=== PATIENT | male | born 1945 | race Caucasian/White ===

== ENCOUNTER 2016-05-26 07:41 | Inpatient (IN) | payer BC, OTHER ==
[~2016-05-26] VITALS: Ht 177.8 cm; Wt 82.1 kg
[2016-05-26] MEDS ORDERED: VANCOMYCIN 1GM/270ML NSS IV STA (07:50)
[2016-05-26] MEDS ORDERED: PIPERACILLIN/TAZOBACTAM 4.5 GM/100ML D5W IV STA (07:50)
[2016-05-26] MEDS ORDERED: LEVAQUIN 750MG / 150ML D5W IV STA (07:50)
[2016-05-26] MEDS ORDERED: SODIUM CHLORIDE 0.9% 1000ML 1,000 ML IV ONE (07:50)
--- NOTE | 2016-05-26 07:59 | EMERGENCY ROOM VISIT NOTE ---
History Report prepared by Alfred: Kandy Lowe Under the Supervision of: Dr. Roland Waters M.D. First contact with patient: 07:45 Chief Complaint: CHEST PAIN Stated Complaint: CHEST PAIN History of Present Illness The patient is a 71 year old male who presents to the Emergency Room with complaints of constant sternal chest pain that began early this morning. Taking deep breaths makes the pain worse. It is an 8/10 in severity. It does not radiate. He has never had similar pain before. Last night, the patient had a fever and chills. He took Motrin, but became nauseated and vomited afterwards. The patient was recently treated with Doxycycline for Lyme. He has a history of asthma and uses an inhaler at home. He does not have a history of COPD. His most recent stress test was years ago, but was normal. He has never smoked. Source of History: patient Onset: early this morning Position: chest (sternal) Symptom Intensity: 8/10 Timing: constant Modifying Factors (Worsening): breathing Associated Symptoms: + chills, + fevers, + vomiting Review of Systems See HPI for pertinent positives & negatives. A total of 10 systems reviewed and were otherwise negative. Past Medical & Surgical Medical Problems: (1) Asthma (2) Pneumonia (3) Severe sepsis Family History No pertinent family history stated. Social History Smoking Status: Never Smoker Alcohol Use: occasionally Drug Use: none Marital Status: Housing Status: lives with family Occupation Status: employed Current/Historical Medications Scheduled Fluticasone-Salmeterol 115/21 Mcg (Advair Hfa 115/21 Mcg), 1 PUFF INH BID Allergies Coded Allergies: Fluticasone (Unverified Allergy, Severe, flu-like symptoms, 05/26/16) Physical Exam Vital Signs Date Time Temp Pulse Resp B/P Pulse Ox O2 Delivery O2 Flow Rate FiO2 05/26/16 09:23 37.6 110 22 111/65 94 Nasal Cannula 2.0 05/26/16 08:44 115 28 129/95 95 Nasal Cannula 2.0 05/26/16 08:30 102/62 05/26/16 07:57 115 30 95/67 92 05/26/16 07:57 92 Nasal Cannula 2.0 05/26/16 07:56 89 Room Air 05/26/16 07:55 116 05/26/16 07:45 95 Room Air 05/26/16 07:45 38.8 120 27 104/65 95 Room Air Physical Exam GENERAL: Patient is a healthy-appearing well-nourished 71 year old male HEAD: Normocephalic atraumatic EYES: Ocular movements intact pupils equal and react to light OROPHARYNX mucous membranes are moist no exudates present no erythema or edema present NECK: Supple no nuchal rigidity CHEST: Good equal expansion LUNGS: Cannot take deep breaths, wheezes present bilaterally. CARDIAC: Normal S1 and S2 ABDOMEN: Soft nontender no guarding BACK: No CVA tenderness EXTREMITIES: No pain upon palpation normal muscle strength in all groups no clubbing cyanosis or edema NEURO: Patient is following commands is answering questions appropriately. Alert and oriented x3 Cranial Nerves 2-12 grossly intact Medical Decision & Procedures ER Provider Diagnostic Interpretation: Radiology results as stated below per my review and radiologist interpretation: CHEST ONE VIEW PORTABLE CLINICAL HISTORY: Sepsis COMPARISON STUDY: 10/23/2015 FINDINGS: The cardiac and mediastinal contours remain stable. There are developing bibasal airspace opacities. There is no overt failure. There is no significant focal fluid.[ IMPRESSION: Developing bibasal airspace opacities, inflammatory versus atelectatic. Electronically signed by: Darryl Yee M.D. 05/26/2016 8:21 AM Dictated Date/Time: 05/26/2016 8:[address] ANGIOGRAM OF THE CHEST CLINICAL HISTORY: Chest pain, shortness of breath, hypoxia. COMPARISON STUDY: Noncontrast chest CT dated 11/19/2015 TECHNIQUE: Following the IV administration of 92 mL of Optiray-320, CT angiogram of the thorax was performed from the thoracic inlet to the lung bases utilizing the pulmonary embolus protocol. Images are reviewed in the axial, sagittal, and coronal planes. IV contrast was administered without complication. MIP imaging was performed. CT DOSE: 294.27 mGy.cm FINDINGS: No pathologically enlarged axillary mediastinal or hilar lymph nodes were visualized. There was no evidence of thoracic aortic dilatation. There were no pulmonary artery filling defects to indicate acute pulmonary embolism. There is a small loculated left pleural effusion. There is lower lobe rhonchi wall thickening most pronounced on the left. There is left lower lobe mucus plugging. There are left lower lobe airspace opacities, likely inflammatory. There is scattered hepatic hypodensities, similar to the prior study. IMPRESSION: 1. No CT evidence of acute pulmonary embolism 2. Lower lobe bronchial wall thickening with narrowing of the left lower lobe bronchus and areas of mucous plugging. There are left basal airspace opacities, likely inflammatory. Imaging subsequent to treatment is recommended in follow-up. Electronically signed by: Darryl Yee M.D. 05/26/2016 8:48 AM Dictated Date/Time: 05/26/2016 8:43 AM Laboratory Results 05/26/16 08:04 Red Blood Count 4.46, Mean Corpuscular Volume 92.8, Mean Corpuscular Hemoglobin 32.1, Mean Corpuscular Hemoglobin Concent 34.5, Mean Platelet Volume 10.7 05/26/16 08:04 Test 05/26/16 08:04 05/26/16 08:17 05/26/16 09:01 White Blood Count 20.64 K/uL (4.8-10.8) Red Blood Count 4.46 M/uL (4.7-6.1) Hemoglobin 14.3 g/dL (14.0-18.0) Hematocrit 41.4 % (42-52) Mean Corpuscular Volume 92.8 fL (80-100) Mean Corpuscular Hemoglobin 32.1 pg (25-34) Mean Corpuscular Hemoglobin Concent 34.5 g/dl (32-36) Platelet Count 215 K/uL (130-400) Mean Platelet Volume 10.7 fL (7.4-10.4) RDW Standard Deviation 46.5 fL (36.4-46.3) RDW Coefficient of Variation 13.6 % (11.5-14.5) Neutrophils % (Manual) 86.9 % Lymphocytes % (Manual) 9.6 % Monocytes % (Manual) 2.6 % Metamyelocytes % 0.9 % Neutrophils # (Manual) 17.94 K/uL (1.4-6.5) Total Absolute Neutrophils 17.94 K/uL (1.4-6.5) Lymphocytes # (Manual) 1.98 K/uL (1.2-3.4) Total Absolute Lymphocytes 1.98 K/uL (1.2-3.4) Monocytes # (Manual) 0.54 K/uL (0.11-0.59) Metamyelocytes # 0.19 K/uL (0-0) Hyposegmented Neutrophils 1+ Large Platelets 1+ Prothrombin Time 11.9 SECONDS (9.0-12.0) Prothromb Time International Ratio 1.1 (0.9-1.1) Activated Partial Thromboplast Time 24.9 SECONDS (21.0-31.0) Partial Thromboplastin Ratio 1.0 Anion Gap 11.0 mmol/L (3-11) Est Creatinine Clear Calc Drug Dose 55.4 ml/min Estimated GFR () 64.5 Estimated GFR (Non- 55.7 BUN/Creatinine Ratio 18.4 (10-20) Calcium Level 8.9 mg/dl (8.5-10.1) Total Bilirubin 1.3 mg/dl (0.2-1) Aspartate Amino Transf (AST/SGOT) 21 U/L (15-37) Alanine Aminotransferase (ALT/SGPT) 21 U/L (12-78) Alkaline Phosphatase 34 U/L (45-117) Total Creatine Kinase 99 U/L (39-308) Creatine Kinase MB < 0.5 ng/ml (0.5-3.6) Creatine Kinase MB Ratio (0-3.0) Troponin I < 0.015 ng/ml (0-0.045) Total Protein 6.5 gm/dl (6.4-8.2) Albumin 3.2 gm/dl (3.4-5.0) Globulin 3.3 gm/dl (2.5-4.0) Albumin/Globulin Ratio 1.0 (0.9-2) Chemistry Specimen Hemolysis Hepatitis C Antibody Screen NEG (NEG) Bedside Lactic Acid Venous 2.81 mmol/L (0.90-1.70) Influenza Type A Antigen Neg for Influ A (NEG) Influenza Type B Antigen Neg for Influ B (NEG) Labs reviewed by ED physician. Medications Administered Medications (Trade) Dose Ordered Sig/Chante Route Start Time Stop Time Status Last Admin Dose Admin Sodium Chloride (Nss 1000ml) 1,000 ml @ 999 mls/hr Q1H1M ONCE IV 05/26/16 07:50 05/26/16 08:50 DC 05/26/16 08:24 999 MLS/HR Piperacillin Sod/ Tazobactam Sod (Zosyn Iv) 4.5 gm ONE STAT IV 05/26/16 07:50 05/26/16 07:53 DC 05/26/16 08:28 4.5 GM Vancomycin HCl (Vancomycin 1gm/ 270ml Nss) 1 gm ONE STAT IV 05/26/16 07:50 05/26/16 07:53 DC 05/26/16 09:11 1 GM Levofloxacin (Levaquin / D5W) 750 mg ONE STAT IV 05/26/16 07:50 05/26/16 07:53 DC 05/26/16 08:27 750 MG Acetaminophen (Tylenol Tab) 650 mg ONE ONCE PO 05/26/16 08:00 05/26/16 08:01 DC 05/26/16 08:29 650 MG Morphine Sulfate (MoRPHine SULFATE INJ) 8 mg NOW STAT IV 05/26/16 08:21 05/26/16 08:23 DC 05/26/16 08:47 8 MG Ondansetron HCl 4 mg 4 mg NOW STAT IV 05/26/16 08:21 05/26/16 08:23 DC 05/26/16 08:46 4 MG Sodium Chloride 1,000 ml @ 999 mls/hr Q1H1M STAT IV 05/26/16 08:21 05/26/16 09:21 DC 05/26/16 08:24 999 MLS/HR Sodium Chloride (Nss 500ml) 500 ml @ 999 mls/hr Q31M STAT IV 05/26/16 08:51 05/26/16 09:21 DC 05/26/16 09:12 999 MLS/HR Methylprednisolone Sodium Succinate (Solu-Medrol IV) 60 mg NOW STAT IV 05/26/16 08:51 05/26/16 08:53 DC 05/26/16 09:12 60 MG Magnesium Sulfate (Magnesium Sulfate) 1 gm NOW STAT IV 05/26/16 08:54 05/26/16 08:55 DC 05/26/16 10:26 1 GM Hydromorphone HCl (Dilaudid Inj) 1 mg NOW STAT IV 05/26/16 09:02 05/26/16 09:04 DC 05/26/16 09:13 1 MG Metoclopramide HCl (Reglan Inj) 10 mg NOW STAT IV 05/26/16 09:02 05/26/16 09:04 DC 05/26/16 09:12 10 MG ECG Indication: chest pain Rate (beats per minute): 118 Rhythm: sinus tachycardia Findings: PVC (occasional), no acute ischemic change ED Course 0746: The patient was evaluated in room A3. A complete history and physical examination was performed. 0750: Ordered Levofloxacin 750 mg IV, Vancomycin HCl 1 gm IV, Zosyn 4.5 gm IV, NSS 1000 ml @ 999 mls/hr IV, Tylenol Tab 650 mg PO. 0800: Ordered Acetaminophen 650 mg PO. 0821: Ordered NSS 1000 ml @ 999 mls/hr IV, Zofran Inj 4 mg IV, Morphine Sulfate 8 mg IV. 0851: Ordered Solu-Medrol 60 mg IV, NSS 500 ml @ 999 mls/hr IV, Magnesium Sulfate 1 gm IV. 0902: Ordered Reglan Inj 10 mg IV, Dilaudid Inj 1 mg IV. 0932: Upon reexamination the patient is feeling better. I discussed results and treatment plan with the patient. He verbalizes agreement and understanding. I spoke with Dr. Ortega from the [facility] Hospitalist Service. The patient will be evaluated for further management. Medical Decision Differential diagnosis: Etiologies such as cardiac ischemia, aortic dissection, pulmonary embolism, pneumonia, pneumothorax, musculoskeletal, infections, pericarditis, myocarditis , esophageal rupture, gastrointestinal, as well as others were entertained. This is a 71-year-old male who presents emergency department hypotensive tachycardic and febrile. The patient's chest x-ray was unconvincing of a acute process therefore he was sent for CAT scan of the chest. This did not show any evidence of blood clot. The patient has normal CK-MB and troponin. He has a large elevation in his white blood count at 25. The patient was pancultured up his found to have an elevation in his lactic acid. He was given 30 mL per kilogram of normal saline. He was started on antibiotics. I did discuss the case with the hospitalist service who agreed to admit the patient. Patient was in agreement with the treatment plan Consults Time Called: [phone] Consulting Physician: Dr. Ortega - [facility] Hospitalist Returned Call: [phone] I discussed the case with him. The patient will be evaluated for further management. Impression Primary Impression: Sepsis Additional Impression: Pneumonia Critical Care I have personally spent greater than 90 minutes of critical care time in the direct management of this patient. This includes bedside care, interpretation of diagnostic studies, and testing, discussion with consultants, patient, and family members, and other required patient management activities. This 90 minutes is in excess of all separately billable procedures. Scribe Attestation The scribe's documentation has been prepared under my direction and personally reviewed by me in its entirety. I confirm that the note above accurately reflects all work, treatment, procedures, and medical decision making performed by me. Departure Information Dispostion Being Evaluated By Hospitalist Referrals Sarbjit Coffman D.O. (PCP) Patient Instructions [facility] Problem Qualifiers Primary Impression: Sepsis Sepsis type: sepsis due to unspecified organism Qualified Codes: A41.9 - Sepsis, unspecified organism Additional Impression: Pneumonia Pneumonia type: due to unspecified organism Laterality: unspecified laterality Lung location: unspecified part of lung Qualified Codes: J18.9 - Pneumonia, unspecified organism
[2016-05-26] MEDS ORDERED: ACETAMINOPHEN 325 MG TAB PO ONE (08:00)
[2016-05-26] MEDS ORDERED: SODIUM CHLORIDE 0.9% 1000ML 1,000 ML IV STA (08:21)
[2016-05-26] MEDS ORDERED: ONDANSETRON INJ 2 MG/ML 2 ML VIAL IV STA (08:21)
[2016-05-26] MEDS ORDERED: MoRPHine SULFATE 10 MG/ML CARP/VIAL IV STA (08:21)
--- NOTE | 2016-05-26 08:23 | DIAGNOSTIC IMAGING REPORT ---
CHEST ONE VIEW PORTABLE CLINICAL HISTORY: Sepsis COMPARISON STUDY: 10/23/2015 FINDINGS: The cardiac and mediastinal contours remain stable. There are developing bibasal airspace opacities. There is no overt failure. There is no significant focal fluid.[ IMPRESSION: Developing bibasal airspace opacities, inflammatory versus atelectatic. Electronically signed by: Darryl Yee M.D. 05/26/2016 8:21 AM Dictated Date/Time: 05/26/2016 8:14 AM
[2016-05-26] MEDS ORDERED: OPTIRAY 320 IV PRN (08:30)
[2016-05-26 08:32] LABS: HEMATOCRIT 41.4 % (42-52); MEAN CELL VOLUME 92.8 fL (80-100); MEAN CORPUSCULAR HEMOGLOBIN 32.1 pg (25-34); MEAN CORPUSCULAR HGB CONC 34.5 g/dl (32-36); MEAN PLATELET VOLUME 10.7 fL (7.4-10.4); PLATELET COUNT 215 K/uL (130-400); RED BLOOD COUNT 4.46 M/uL (4.7-6.1); WHITE BLOOD COUNT 20.64 K/uL (4.8-10.8)
[2016-05-26 08:40] LABS: INR 1.1 (0.9-1.1); PROTHROMBIN TIME (PATIENT) 11.9 SECONDS (9.0-12.0)
--- NOTE | 2016-05-26 08:50 | DIAGNOSTIC IMAGING REPORT ---
CT ANGIOGRAM OF THE CHEST CLINICAL HISTORY: Chest pain, shortness of breath, hypoxia. COMPARISON STUDY: Noncontrast chest CT dated 11/19/2015 TECHNIQUE: Following the IV administration of 92 mL of Optiray-320, CT angiogram of the thorax was performed from the thoracic inlet to the lung bases utilizing the pulmonary embolus protocol. Images are reviewed in the axial, sagittal, and coronal planes. IV contrast was administered without complication. MIP imaging was performed. CT DOSE: 294.27 mGy.cm FINDINGS: No pathologically enlarged axillary mediastinal or hilar lymph nodes were visualized. There was no evidence of thoracic aortic dilatation. There were no pulmonary artery filling defects to indicate acute pulmonary embolism. There is a small loculated left pleural effusion. There is lower lobe rhonchi wall thickening most pronounced on the left. There is left lower lobe mucus plugging. There are left lower lobe airspace opacities, likely inflammatory. There is scattered hepatic hypodensities, similar to the prior study. IMPRESSION: 1. No CT evidence of acute pulmonary embolism 2. Lower lobe bronchial wall thickening with narrowing of the left lower lobe bronchus and areas of mucous plugging. There are left basal airspace opacities, likely inflammatory. Imaging subsequent to treatment is recommended in follow-up. Electronically signed by: Darryl Yee M.D. 05/26/2016 8:48 AM Dictated Date/Time: 05/26/2016 8:43 AM
[2016-05-26] MEDS ORDERED: METHYLPREDNISOLONE 125 MG VIAL IV STA (08:51)
[2016-05-26] MEDS ORDERED: SODIUM CHLORIDE 0.9% 500ML 500 ML IV STA (08:51)
[2016-05-26] MEDS ORDERED: MAGNESIUM SULFATE 1GM / D5W 1 GM BAG IV STA (08:54)
[2016-05-26] MEDS ORDERED: METOCLOPRAMIDE HCL INJ 5 MG/ML 2 ML VIAL IV STA (09:02)
[2016-05-26] MEDS ORDERED: HYDROmorphone INJ 1 MG/ML SYR IV STA (09:02)
[2016-05-26 09:10] LABS: COMPLETE YES; HYPOSEGMENTED POLYS 1+; LARGE PLATELETS 1+; LYMPH ABS # 1.98 K/uL (1.2-3.4); LYMPHOCYTE % 9.6 %; META ABS # 0.19 K/uL (0-0); METAMYELOCYTE % 0.9 %; NEUTROPHILS % 86.9 %
[2016-05-26] MEDS ORDERED: FLUT115A INH (09:13)
[2016-05-26 09:19] LABS: ALKALINE PHOSPHATASE 34 U/L (45-117); ALT/SGPT 21 U/L (12-78); AST/SGOT 21 U/L (15-37); BLOOD UREA NITROGEN 24 mg/dl (7-18); BUN/CREATININE RATIO 18.4 (10-20); CALCIUM 8.9 mg/dl (8.5-10.1); CARBON DIOXIDE 23 mmol/L (21-32); CHLORIDE 104 mmol/L (98-107); GLUCOSE 119 mg/dl (70-99); POTASSIUM 4.1 mmol/L (3.5-5.1); SODIUM 138 mmol/L (136-145)
[2016-05-26 09:45] VITALS: BP 98/63; PULSE 88; TEMP 36.4; O2SAT 94; Ht 177.8 cm; Wt 82.1 kg
[2016-05-26] MEDS ORDERED: ONDANSETRON INJ 2 MG/ML 2 ML VIAL IV PRN (09:45)
[2016-05-26] MEDS ORDERED: ACETAMINOPHEN 325 MG TAB PO PRN (09:45)
[2016-05-26] MEDS ORDERED: SODIUM CHLORIDE 0.9% 1000ML 1,000 ML IV SCH (10:15)
--- NOTE | 2016-05-26 11:01 | History and Physical ---
History & Physical Date & Time of Service: May 26, 2016 at 10:45 Chief Complaint: Chest Pain Primary Care Physician: Sarbjit Coffman D.O. History of Present Illness Source: patient, family, hospital records 71 yo male with history of prostate cancer and asthma, presented to the ED with chief complaint of left sided chest pain that started last night. He reports that yesterday during the day he felt fine, no chest pain, no dyspnea, no chills. Last evening he noticed that he had some left sided chest pain and it hurt more with deep breaths. He did not have much of an appetite and skipped dinner. He then started with chills, fevers, sweats and increased lethargy. He tried to sleep but his pain kept waking him up during the night. No history of any chest pain like this. This morning his symptoms persisted so he came to the ED for evaluation. He admits to some shortness of breath but mostly because his breathing is limited by the pain. No cough or sputum production. In the ED he was febrile, tachycardic and had a leukocytosis. CXR showed likely left lower lobe infiltrate and CTA chest confirmed a left lower lobe pneumonia, no evidence of PE. He was given a total of 2.5 liters of NSS and started on broad spectrum antibiotics. Lactic acid was slightly high at 2.8. No evidence of renal failure and only minimal oxygen requirements. He reports that prior to this he was feeling healthy. No recent travel, has not stayed in any hotels. No sick contacts at home or work that he knows of. 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) Immunizations History of Influenza Vaccine: Yes Influenza Vaccine Date: Feb 02, 2005 History of Tetanus Vaccine?: "MANY YEARS AGO" History of Pneumococcal: No History of Hepatitis B Vaccine: No Multi-Drug Resistant Organisms History of MDRO: No Allergies Coded Allergies: Fluticasone (Unverified Allergy, Severe, flu-like symptoms, 05/26/16) Home Medications Scheduled Fluticasone-Salmeterol 115/21 Mcg (Advair Hfa 115/21 Mcg), 1 PUFF INH BID Review of Systems Constitutional: + chills, + fatigue, + fever, + sweats, + weakness, No weight loss Eyes: No diplopia, No discharge, No eye pain, No problem reported, No redness, No worsening of vision ENT: No dental problems, No hearing loss, No nasal symptoms, No problem reported, No sore throat, No tinnitus, No trouble swallowing, No unusual epistaxis Respiratory: + dyspnea on exertion, No cough, No dyspnea at rest, No hemoptysis , No problem reported, No shortness of breath, No sputum, No wheezing Cardiovascular: + chest pain (left sided), No PND, No claudication, No edema, No orthopnea, No palpitations, No problem reported Abdomen: + problem reported (poor appetite), No GI bleeding, No constipation, No diarrhea, No nausea, No pain, No vomiting Musculoskeletal: No calf pain, No joint pain, No muscle pain, No problem reported, No swelling Genitourinary - Male: + urinary incontinence, No dysuria, No hematuria, No urinary frequency, No urinary hesitancy, No urinary retention, No urinary urgency Neurologic: No balance problems, No memory loss, No numbness/tingling, No paralysis, No problem reported, No vertigo, No weakness Psychiatric: No anhedonism, No anxiety, No depression symptoms, No insomnia, No problem reported, No substance abuse Endocrine: No excessive thirst, No excessive urination, No fatigue, No problem reported Hematologic / Lymphatic: No abnormal bleeding/bruising, No clotting problems, No night sweats, No problem reported, No swollen lymph nodes Integumentary: No bleeding, No color change, No itch, No new/changing skin lesions, No problem reported, No rash Allergic / Immunologic: + seasonal allergies, No environmental allergies, No food allergies, No frequent infections, No hives, No pet sensitivities, No poor healing, No problem reported, No prolonged convalescence Physical Exam Vital Signs Date Time Temp Pulse Resp B/P Pulse Ox O2 Delivery O2 Flow Rate FiO2 05/26/16 10:28 96 20 100/62 92 Nasal Cannula 2.0 05/26/16 10:07 96 20 96/62 94 Nasal Cannula 05/26/16 09:45 94 Nasal Cannula 2.0 05/26/16 09:23 37.6 110 22 111/65 94 Nasal Cannula 2.0 05/26/16 08:44 115 28 129/95 95 Nasal Cannula 2.0 05/26/16 08:30 102/62 05/26/16 07:57 115 30 95/67 92 05/26/16 07:57 92 Nasal Cannula 2.0 05/26/16 07:56 89 Room Air 05/26/16 07:55 116 05/26/16 07:45 95 Room Air 05/26/16 07:45 38.8 120 27 104/65 95 Room Air General Appearance: WD/WN, no apparent distress Head: normocephalic, atraumatic Eyes: normal inspection, EOMI, sclerae normal ENT: normal ENT inspection, hearing grossly normal, pharynx normal Neck: supple, no adenopathy, no JVD, trachea midline Respiratory/Chest: chest non-tender, no respiratory distress, no accessory muscle use, + crackles (left base) Cardiovascular: no edema, no gallop, no JVD, no murmur, normal peripheral pulses, + tachycardia Abdomen/GI: normal bowel sounds, non tender, soft, no organomegaly Back: normal inspection, no CVA tenderness, no muscle spasm, normal range of motion Extremities/Musculoskelatal: normal inspection, no calf tenderness, normal capillary refill, no pedal edema, normal range of motion, pelvis stable 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, no motor/sensory deficits, alert, normal mood/affect, normal reflexes, oriented x 3 Skin: normal color, warm/dry, no rash Lymphatic: no adenopathy Diagnostics Laboratory Results Results Past 24 Hours Test 05/26/16 08:04 05/26/16 08:17 05/26/16 09:01 05/26/16 10:09 Range/Units White Blood Count 20.64 4.8-10.8 K/uL Red Blood Count 4.46 4.7-6.1 M/uL Hemoglobin 14.3 14.0-18.0 g/dL Hematocrit 41.4 42-52 % Mean Corpuscular Volume 92.8 80-100 fL Mean Corpuscular Hemoglobin 32.1 25-34 pg Mean Corpuscular Hemoglobin Concent 34.5 32-36 g/dl Platelet Count 215 130-400 K/uL Mean Platelet Volume 10.7 7.4-10.4 fL RDW Standard Deviation 46.5 36.4-46.3 fL RDW Coefficient of Variation 13.6 11.5-14.5 % Neutrophils % (Manual) 86.9 % Lymphocytes % (Manual) 9.6 % Monocytes % (Manual) 2.6 % Metamyelocytes % 0.9 % Neutrophils # (Manual) 17.94 1.4-6.5 K/uL Total Absolute Neutrophils 17.94 1.4-6.5 K/uL Lymphocytes # (Manual) 1.98 1.2-3.4 K/uL Total Absolute Lymphocytes 1.98 1.2-3.4 K/uL Monocytes # (Manual) 0.54 0.11-0.59 K/uL Metamyelocytes # 0.19 0-0 K/uL Hyposegmented Neutrophils 1+ Large Platelets 1+ Prothrombin Time 11.9 9.0-12.0 SECONDS Prothromb Time International Ratio 1.1 0.9-1.1 Activated Partial Thromboplast Time 24.9 21.0-31.0 SECONDS Partial Thromboplastin Ratio 1.0 Sodium Level 138 136-145 mmol/L Potassium Level 4.1 3.5-5.1 mmol/L Chloride Level 104 98-107 mmol/L Carbon Dioxide Level 23 21-32 mmol/L Anion Gap 11.0 3-11 mmol/L Blood Urea Nitrogen 24 7-18 mg/dl Creatinine 1.30 0.60-1.40 mg/dl Est Creatinine Clear Calc Drug Dose 55.4 ml/min Estimated GFR () 64.5 Estimated GFR (Non- 55.7 BUN/Creatinine Ratio 18.4 10-20 Random Glucose 119 70-99 mg/dl Calcium Level 8.9 8.5-10.1 mg/dl Total Bilirubin 1.3 0.2-1 mg/dl Aspartate Amino Transf (AST/SGOT) 21 15-37 U/L Alanine Aminotransferase (ALT/SGPT) 21 12-78 U/L Alkaline Phosphatase 34 45-117 U/L Total Creatine Kinase 99 39-308 U/L Creatine Kinase MB < 0.5 0.5-3.6 ng/ml Creatine Kinase MB Ratio 0-3.0 Troponin I < 0.015 0-0.045 ng/ml Total Protein 6.5 6.4-8.2 gm/dl Albumin 3.2 3.4-5.0 gm/dl Globulin 3.3 2.5-4.0 gm/dl Albumin/Globulin Ratio 1.0 0.9-2 Chemistry Specimen Hemolysis Bedside Lactic Acid Venous 2.81 0.90-1.70 mmol/L Influenza Type A Antigen Neg for Influ A NEG Influenza Type B Antigen Neg for Influ B NEG Lactic Acid Level 2.8 0.4-2.0 mmol/L Microbiology Results 05/26/16 Blood Culture, Received Pending 05/26/16 Blood Culture, Received Pending Diagnostic Radiology CT ANGIOGRAM OF THE CHEST CLINICAL HISTORY: Chest pain, shortness of breath, hypoxia. COMPARISON STUDY: Noncontrast chest CT dated 11/19/2015 TECHNIQUE: Following the IV administration of 92 mL of Optiray-320, CT angiogram of the thorax was performed from the thoracic inlet to the lung bases utilizing the pulmonary embolus protocol. Images are reviewed in the axial, sagittal, and coronal planes. IV contrast was administered without complication. MIP imaging was performed. CT DOSE: 294.27 mGy.cm FINDINGS: No pathologically enlarged axillary mediastinal or hilar lymph nodes were visualized. There was no evidence of thoracic aortic dilatation. There were no pulmonary artery filling defects to indicate acute pulmonary embolism. There is a small loculated left pleural effusion. There is lower lobe rhonchi wall thickening most pronounced on the left. There is left lower lobe mucus plugging. There are left lower lobe airspace opacities, likely inflammatory. There is scattered hepatic hypodensities, similar to the prior study. IMPRESSION: 1. No CT evidence of acute pulmonary embolism 2. Lower lobe bronchial wall thickening with narrowing of the left lower lobe bronchus and areas of mucous plugging. There are left basal airspace opacities, likely inflammatory. Imaging subsequent to treatment is recommended in follow-up. CHEST ONE VIEW PORTABLE CLINICAL HISTORY: Sepsis COMPARISON STUDY: 10/23/2015 FINDINGS: The cardiac and mediastinal contours remain stable. There are developing bibasal airspace opacities. There is no overt failure. There is no significant focal fluid.[ IMPRESSION: Developing bibasal airspace opacities, inflammatory versus atelectatic. EKG sinus tachycardia with PVC Impression Assessment and Plan 71 yo male with sepsis due to left lower lobe pneumonia - Sepsis due to left lower lobe pneumonia: no evidence of shock thus far, BP > 90 systolic, LA 2.8 patient has low BP at baseline so 90's systolic not far from baseline received 2.5 liters, will give an additional 1L of NSS and then run at 125cc /hr Zosyn, Levaquin, Vancomycin initially, taper in next 48 hours blood cultures drawn repeat LA now admit to telemetry, no role for ICU at the time of admission follow closely, if his BP drops further then consider moving to ICU nebulizers QID and q2 PRN morphine for left chest pain - Asthma: no wheezing currently, hold Advair and use nebulizers - DVT prophylaxis: Lovenox Level of Care Telemetry Advanced Directives Existing Living Will: No Existing Power of Contract Coordinator: No Resuscitation Status FULL RESUSCITATION VTE Prophylaxis VTE Risk Assessment Done? Y/N: Yes Risk Level: Low Given or contraindicated: Enoxaparin (Lovenox)SQ Additional Copies To Sarbjit Coffman D.O.
[2016-05-26] MEDS ORDERED: MoRPHine SULFATE 4 MG/ML 1 ML CARP\\VIAL IV PRN (11:15)
[2016-05-26] MEDS ORDERED: MoRPHine SULFATE 2 MG/ML CARP IV PRN (11:15)
[2016-05-26] MEDS ORDERED: PNEUMOCOCCAL ADMINISTRATION CHARGE ONE (11:30)
[2016-05-26] MEDS ORDERED: PNEUMOCOCCAL POLYSACCHARIDES 25 MCG/0.5 ML VIAL/SYR IM. ONE (11:30)
[2016-05-26] MEDS ORDERED: PIPERACILL/TAZOBAC CONSULT ACTIVE PRN (11:45)
[2016-05-26] MEDS ORDERED: CEFEPIME CONSULT ACTIVE PRN ×2 (11:45)
[2016-05-26] MEDS ORDERED: VANCOMYCIN CONSULT ACTIVE PRN (11:45)
[2016-05-26] MEDS ORDERED: PIPERACILL/TAZOBAC IV 3.375 GM in DEXTROSE 5% 100ML 100 ML IV SCH (12:00)
[2016-05-26] MEDS ORDERED: VANCOMYCIN INJ 500 MG in SODIUM CHLORIDE 0.9% 100ML 100 ML IV SCH (12:00)
[2016-05-26] MEDS: SODIUM CHLORIDE 0.9% 1000ML 1,000 ML IV SCH ×2 (12:40→20:35)
[2016-05-26] MEDS: ENOXAPARIN 40 MG/0.4 ML SYR SC SCH (13:17)
[2016-05-26] MEDS ORDERED: CEFEPIME IV 2000 MG in DEXTROSE 5% 100ML IV SCH (15:00)
--- NOTE | 2016-05-26 15:07 | Pharmacy Progress Note ---
Pharmacy Antibiotic Consult Date of Service: May 26, 2016. Pharmacy Dosing Scope Pharmacy is consulted to initiate vancomycin and cefepime IV dosing therapy, order appropriate labs and adjust drug dose/frequency. Subjective The patient is a 71 year old male admitted on May 26, 2016 at 09:39 with chest pain. Objective Height (Feet): 5 Height (Inches): 10.00 Weight (Kilograms): 75.600 Lab Results (24hrs): Laboratory Tests Test 05/26/16 08:04 BUN/Creatinine Ratio 18.4 Blood Urea Nitrogen 24 mg/dl Creatinine 1.30 mg/dl White Blood Count 20.64 K/uL Red Blood Count 4.46 M/uL Hemoglobin 14.3 g/dL Hematocrit 41.4 % Mean Corpuscular Volume 92.8 fL Mean Corpuscular Hemoglobin 32.1 pg Mean Corpuscular Hemoglobin Concent 34.5 g/dl Platelet Count 215 K/uL Mean Platelet Volume 10.7 fL Micro Results: Item Value Date Time Blood Culture Received 05/26/16 0804 Blood Pending Blood Culture Received 05/26/16 0812 Blood Pending MRSA DNA Surveillance Screen - Final Complete 05/26/16 1210 Nasal Specimen Negative for MRSA by DNA Probe Recent Pertinent Medications Item Value Date Time Levofloxacin 750 mg 05/26/16 0750 (Levaquin / D5W) ONE STAT/IV ONE TIME DOSE IN ED 05/26/16 0827 Piperacillin Sod/ 4.5 gm 05/26/16 0750 Tazobactam Sod ONE STAT/IV 05/26/16 0828 (Zosyn Iv) ONE TIME DOSE IN ED Vancomycin HCl 1 gm 05/26/16 0750 (Vancomycin 1gm/ ONE STAT/IV 05/26/16 0911 270ml Nss) ONE TIME DOSE IN ED Assessment & Plan Assessment: * 71 y/o who presents with chest pain - LLL infiltrate on imaging * Minimal risk factors for healthcare associated organisms * recent Doxy for the treatment of Lyme dx Plan: * Begin broad-spectrum ABX for the treatment of pneumonia (CAP?) Vancomycin: * Loading dose: 1000 mg IV X 1 dose given in ED * give additional dose of 500mg to augment for a 20mg/kg loading dose * Maintenance dose: 1000mg IV q12h * Estimated kinetic: t1/2 ~14 hours (dosed a lower mg/kg basis and more freq than half life) * Serum creatinine may improve Cefepime: * Target dose: 2000mg IV every 8 hours * Dose adj for CrCl 30-60mLmin to 2000mg IV every 12hours Levofloxacin: * Continue 750mg IV every 24 hours * no dose adj needed for CrCl above 50mL/min Labs/Micro: * MRSA DNA nasal swab to help de-escalate vancomycin if/when appropriate * vancomycin trough prior to the 12:00 dose on 05/28 Pharmacy will continue to follow and will adjust dose/frequency as necessary. Thank you
[2016-05-26 15:11] VITALS: BP 90/67; PULSE 83; TEMP 36.4; O2SAT 93
[2016-05-26 18:09] LABS: INFLUENZA A PCR Neg for Influ A (NEG); INFLUENZA B PCR Neg for Influ B (NEG)
[2016-05-26 18:46] VITALS: BP 97/60; PULSE 79; TEMP 36.6; O2SAT 95
[2016-05-26 19:08] LABS: URINE APPEARANCE CLEAR (CLEAR); URINE BILIRUBIN NEG (NEG); URINE COLOR YELLOW; URINE EPITHELIAL CELL AUTO 0-5 /lpf (0-5); URINE NITRITE NEG (NEG); URINE PH 5.5 (4.5-7.5); URINE SPECIFIC GRAVITY 1.024 (1.000-1.030); UROBILINOGEN NEG (NEG); ZZUR CULT IF INDIC CLEAN CATCH NO
[2016-05-26 19:09] LABS: MANUAL MICROSCOPIC REQUIRED? NO; REVIEW REQ? NO
[2016-05-26 20:00] VITALS: O2SAT 95
[2016-05-26] MEDS: VANCOMYCIN INJ 1,000 MG in SODIUM CHLORIDE 0.9% 250ML 250 ML IV SCH (23:23)
[2016-05-26 23:37] VITALS: BP 108/65; PULSE 91; TEMP 36.5; O2SAT 96
[2016-05-26 23:59] VITALS: O2SAT 95
[2016-05-27] VITALS (15 sets, daily range): BP systolic 80–122; BP diastolic 55–85; PULSE 94–130; TEMP 36.7–37.3; O2SAT 95–98
[2016-05-27] MEDS: CEFTRIAXONE SOD INJ 1000 MG in DEXTROSE 5% 50ML IV SCH (02:15)
[2016-05-27] MEDS: SODIUM CHLORIDE 0.9% 1000ML 1,000 ML IV SCH ×3 (05:36→22:00)
[2016-05-27] MEDS ORDERED: GENTAMICIN CONSULT ACTIVE PRN (06:16)
[2016-05-27 06:29] LABS: HEMATOCRIT 37.1 % (42-52); MEAN CELL VOLUME 92.8 fL (80-100); MEAN CORPUSCULAR HEMOGLOBIN 31.8 pg (25-34); MEAN PLATELET VOLUME 9.9 fL (7.4-10.4); PLATELET COUNT 152 K/uL (130-400); WHITE BLOOD COUNT 20.81 K/uL (4.8-10.8)
[2016-05-27] MEDS ORDERED: DEXTROSE 5% IV SCH (06:30)
[2016-05-27] MEDS ORDERED: GENTAMICIN IV SCH (06:30)
[2016-05-27] MEDS ORDERED: METOPROLOL TARTRATE 1 MG/ML VIAL ONE (06:30)
[2016-05-27] MEDS: METOPROLOL TARTRATE 1 MG/ML VIAL IV PRN ×3 (06:33→14:04)
[2016-05-27 06:38] LABS: MEAN CORPUSCULAR HGB CONC 34.2 g/dl (32-36)
[2016-05-27 06:53] LABS: BUN/CREATININE RATIO 22.2 (10-20); CALCIUM 7.5 mg/dl (8.5-10.1); CREATININE 0.79 mg/dl (0.60-1.40); MAGNESIUM 1.9 mg/dl (1.8-2.4); POTASSIUM 4.1 mmol/L (3.5-5.1)
[2016-05-27 06:56] LABS: BASO ABS # 0.01 K/uL (0-0.2); COMPLETE YES; IG% 2.5 %; LYMPH % 5.4 %; LYMPH ABS # 1.12 K/uL (1.2-3.4); MONO % 5.6 %; NEUT % 86.5 %
[2016-05-27] MEDS: LEVOFLOXACIN / D5W 750 MG in PREMIXED IN D5W 150 ML IV SCH (08:07)
[2016-05-27] MEDS ORDERED: SODIUM CHLORIDE 0.9% 500ML 500 ML IV SCH (10:30)
[2016-05-27] MEDS: VANCOMYCIN INJ 1,000 MG in SODIUM CHLORIDE 0.9% 250ML 250 ML IV SCH (12:27)
[2016-05-27] MEDS: ENOXAPARIN 40 MG/0.4 ML SYR SC SCH (13:36)
[2016-05-27] MEDS ORDERED: SODIUM CHLORIDE 0.9% 1000ML 1,000 ML IV STA (14:32)
--- NOTE | 2016-05-27 16:36 | Family Medicine Progress Note ---
Progress Note Date of Service May 27, 2016. Subjective Pt evaluation today including: conversation w/ patient, conversation w/ family , physical exam, chart review, lab review Patient lying comfortably in bed. He states he is feeling significantly better today compared to yesterday, although he states he does feel drained/has low energy. His epigastric band pain has resolved since admission and he is no longer experiencing nausea and vomiting as he was prior to admission, and though his appetite is diminished, he has been able to keep his food down. Patient went into afib this morning and his blood pressure has also been labile , but he denies symptoms of chest pain, palpitations, worsening SOB, headaches, dizziness/lightheadedness. He states the fever and chills have also improved. Patient wants to relay that he did complete treatment for Lyme with doxycycline ~2weeks ago. Constitutional: + fatigue, No chills, No fever Respiratory: + shortness of breath, No cough, No sputum Cardiovascular: No chest pain, No edema, No palpitations Abdomen: No GI bleeding, No constipation, No diarrhea, No nausea, No pain, No vomiting Male : No dysuria Objective Vital Signs Date Time Temp Pulse Resp B/P Pulse Ox O2 Delivery O2 Flow Rate FiO2 05/27/16 16:16 99 104/69 05/27/16 15:01 37.3 108 20 92/64 96 Nasal Cannula 2.0 05/27/16 14:04 132 114/70 05/27/16 12:00 Nasal Cannula 2.0 05/27/16 11:27 37.0 114 18 90/62 96 Room Air 05/27/16 10:06 126 102/68 05/27/16 09:40 101/67 05/27/16 09:35 122 18 101/67 05/27/16 09:11 130 18 85/56 05/27/16 08:45 80/55 05/27/16 08:30 86/58 05/27/16 08:00 Nasal Cannula 2.0 05/27/16 07:30 36.8 102 18 100/69 95 Room Air 05/27/16 06:33 125 110/59 05/27/16 06:10 124 100/67 05/27/16 04:00 95 Nasal Cannula 2.0 05/27/16 03:07 36.7 94 18 110/70 95 05/26/16 23:59 95 Nasal Cannula 2.0 05/26/16 23:37 36.5 91 20 108/65 96 Nasal Cannula 2.0 05/26/16 20:00 95 Nasal Cannula 2.0 05/26/16 18:46 36.6 79 18 97/60 95 Room Air Physical Exam General Appearance: WD/WN, no apparent distress Eyes: normal inspection ENT: hearing grossly normal, pharynx normal Neck: supple Respiratory/Chest: lungs clear, no respiratory distress, no accessory muscle use, + crackles Cardiovascular: no murmur, + tachycardia, + irregularly irregular Abdomen: normal bowel sounds, non tender, soft Extremities: normal inspection, no pedal edema, no calf tenderness Neurologic/Psychiatric: alert, normal mood/affect, oriented x 3 Skin: normal color, warm/dry, no rash Laboratory Results Results Past 24 Hours Test 05/27/16 06:20 Range/Units White Blood Count 20.81 4.8-10.8 K/uL Red Blood Count 4.00 4.7-6.1 M/uL Hemoglobin 12.7 14.0-18.0 g/dL Hematocrit 37.1 42-52 % Mean Corpuscular Volume 92.8 80-100 fL Mean Corpuscular Hemoglobin 31.8 25-34 pg Mean Corpuscular Hemoglobin Concent 34.2 32-36 g/dl Platelet Count 152 130-400 K/uL Mean Platelet Volume 9.9 7.4-10.4 fL Neutrophils (%) (Auto) 86.5 % Lymphocytes (%) (Auto) 5.4 % Monocytes (%) (Auto) 5.6 % Eosinophils (%) (Auto) 0.0 % Basophils (%) (Auto) 0.0 % Neutrophils # (Auto) 17.99 1.4-6.5 K/uL Lymphocytes # (Auto) 1.12 1.2-3.4 K/uL Monocytes # (Auto) 1.17 0.11-0.59 K/uL Eosinophils # (Auto) 0.00 0-0.5 K/uL Basophils # (Auto) 0.01 0-0.2 K/uL RDW Standard Deviation 47.5 36.4-46.3 fL RDW Coefficient of Variation 14.0 11.5-14.5 % Immature Granulocyte % (Auto) 2.5 % Immature Granulocyte # (Auto) 0.52 0.00-0.02 K/uL Red Blood Cell Morphology Unremarkable Sodium Level 142 136-145 mmol/L Potassium Level 4.1 3.5-5.1 mmol/L Chloride Level 110 98-107 mmol/L Carbon Dioxide Level 26 21-32 mmol/L Anion Gap 6.0 3-11 mmol/L Blood Urea Nitrogen 18 7-18 mg/dl Creatinine 0.79 0.60-1.40 mg/dl Est Creatinine Clear Calc Drug Dose 91.1 ml/min Estimated GFR () 106.2 Estimated GFR (Non- 91.6 BUN/Creatinine Ratio 22.2 10-20 Random Glucose 117 70-99 mg/dl Calcium Level 7.5 8.5-10.1 mg/dl Magnesium Level 1.9 1.8-2.4 mg/dl Microbiology Results 05/27/16 MRSA DNA Surveillance Screen, Jono Batch Pending Assessment and Plan 71 year old male with asthma, recent Lyme, h/o ventricular arrhythmias 15 year ago, admitted with sepsis due to left lower lobe pneumonia Sepsis due to left lower lobe pneumonia - no evidence of shock thus far, BP > 90 systolic, LA 2.8. Patient has low BP at baseline, so 90's systolic not far from baseline. Pneumonia empirically treated with antibiotics. Vancomycin discontinued as prelim blood cultures show growth of gram neg cocci. - Continue mIVF at 125cc/hr - IV Zosyn and IV Levaquin - Trace blood cultures - Nebulizers QID and q2 PRN - Morphine for left chest pain Hypotension - Continue mIVF - Consider transfer to ICU if his BP drops further, despite IVF bolus Afib with RVR - new onset. Reverted back to NSR with fluid bolus - Continue to monitor on telemetry - Will discuss prison anticoagulation options closer to time of discharge Asthma - Hold Advair, continue nebulizers DVT prophylaxis -Lovenox Full Code Resident Physician Supervision Note: I interviewed and examined the patient. Discussed with Dr. Watts and agree with findings and plan as documented in the note. Any exceptions or clarifications are listed here: None Documented By: Jayme Evans feeling better than when he came in but very fatigued and kind of nauseated. no other acute complaints though. no f/c/s. ros otherwise negative except for as above d/w pt and son, then called dtr (orthopedic surgeon in [place]) at son's request. 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 doesn't believe he's drank recently to have to worry about withdrawal - and when he's quit before he hasn't had withdrawal - but worried about fall risk (did have one bad fall) o: vitals noted see EMR - with fluid bolus this afternoon, HR improved from 130' s to 100's and then converted to NSR. nad, fatigued appearing, breathing unlabored somewhat diminished base L, no r/r/w good effort. no pallor or icterus a/p pneumonia w sepsis and bacteremia - continue double gram neg coverage until sensitivities then streamline coverage. improving afib / RVR - converted to NSR w fluids. age + EtOH abuse certainly make PAF high probability, just unmasked this time w tachycardia of sepsis. assuming normal LV function (echo to be done) CHADS-Vasc is 1.3% risk making anticoagulation favorable - will have to discuss further w EtOH abuse and fall risk DVT proph - lovenox improving. Continued [facility] stay due to: multiple IV medications needed Discharge planning: home Resident Tracking Resident Involvement: Resident Care Provided Care Provided: Adult Hospital Medicine
[2016-05-28] VITALS (11 sets, daily range): BP systolic 114–153; BP diastolic 75–84; PULSE 88–107; TEMP 36.6–36.9; O2SAT 91–97
[2016-05-28] MEDS: ALBUT/IPRATROP 3MG/0.5MG NEB 3 ML VIAL INH SCH ×6 (01:00→20:00)
[2016-05-28] MEDS: CEFTRIAXONE SOD INJ 1000 MG in DEXTROSE 5% 50ML IV SCH (02:20)
[2016-05-28] MEDS: SODIUM CHLORIDE 0.9% 1000ML 1,000 ML IV SCH ×3 (02:20→18:36)
[2016-05-28 06:04] LABS: BASO % 0.1 %; BASO ABS # 0.01 K/uL (0-0.2); COMPLETE YES; EOS % 0.1 %; HEMATOCRIT 34.8 % (42-52); IG% 0.5 %; LYMPH ABS # 1.17 K/uL (1.2-3.4); MEAN CELL VOLUME 91.8 fL (80-100); MEAN CORPUSCULAR HEMOGLOBIN 31.4 pg (25-34); MEAN CORPUSCULAR HGB CONC 34.2 g/dl (32-36); MEAN PLATELET VOLUME 10.7 fL (7.4-10.4); NEUT % 86.3 %; PLATELET COUNT 174 K/uL (130-400); RED BLOOD COUNT 3.79 M/uL (4.7-6.1); WHITE BLOOD COUNT 16.71 K/uL (4.8-10.8)
[2016-05-28 06:43] LABS: BUN/CREATININE RATIO 22.3 (10-20); CALCIUM 7.5 mg/dl (8.5-10.1); CREATININE 0.6 mg/dl (0.60-1.40); POTASSIUM 3.7 mmol/L (3.5-5.1)
--- NOTE | 2016-05-28 07:33 | Family Medicine Progress Note ---
Progress Note Date of Service May 28, 2016. Subjective Pt evaluation today including: conversation w/ patient, physical exam, chart review, lab review Patient lying comfortably in bed. He states he is feeling slightly better today compared to yesterday, although he states his energy and appetite remain diminished. Patient's breathing has improved to the point that he no longer requires oxygen, and is feeling comfortable on room air. He has remained in NSR since yesterday afternoon after receiving a fluid bolus and he denies symptoms of chest pain, palpitations, dyspnea, headaches, dizziness/lightheadedness. He states no further fever and chills. Constitutional: + fatigue, No chills, No fever Respiratory: No cough, No shortness of breath, No wheezing Cardiovascular: No chest pain, No edema, No palpitations Abdomen: No constipation, No diarrhea, No nausea, No pain, No vomiting Musculoskeletal: No joint pain Male : No dysuria Objective Vital Signs Date Time Temp Pulse Resp B/P Pulse Ox O2 Delivery O2 Flow Rate FiO2 05/28/16 04:47 36.7 94 18 115/75 93 Nasal Cannula 2.0 05/28/16 04:00 Nasal Cannula 2.0 05/28/16 01:15 102 18 96 Nasal Cannula 2.0 05/27/16 23:59 Nasal Cannula 2.0 05/27/16 23:35 37.2 97 16 122/85 97 Nasal Cannula 2.0 05/27/16 20:00 Room Air 05/27/16 19:19 37.2 97 18 117/76 98 Nasal Cannula 2.0 05/27/16 16:16 99 104/69 05/27/16 16:00 96 Nasal Cannula 2.0 05/27/16 15:01 37.3 108 20 92/64 96 Nasal Cannula 2.0 05/27/16 14:04 132 114/70 05/27/16 12:00 Nasal Cannula 2.0 05/27/16 11:27 37.0 114 18 90/62 96 Room Air 05/27/16 10:06 126 102/68 05/27/16 09:40 101/67 05/27/16 09:35 122 18 101/67 05/27/16 09:11 130 18 85/56 05/27/16 08:45 80/55 05/27/16 08:30 86/58 05/27/16 08:00 Nasal Cannula 2.0 Physical Exam General Appearance: WD/WN, no apparent distress Eyes: normal inspection ENT: hearing grossly normal Neck: supple Respiratory/Chest: lungs clear, no respiratory distress, no accessory muscle use, + crackles (improved from yesterday) Cardiovascular: regular rate, rhythm, no murmur Abdomen: normal bowel sounds, non tender, soft Extremities: normal inspection, no pedal edema, no calf tenderness Neurologic/Psychiatric: alert, normal mood/affect, oriented x 3 Skin: normal color, warm/dry, no rash Laboratory Results Results Past 24 Hours Test 05/28/16 05:30 Range/Units White Blood Count 16.71 4.8-10.8 K/uL Red Blood Count 3.79 4.7-6.1 M/uL Hemoglobin 11.9 14.0-18.0 g/dL Hematocrit 34.8 42-52 % Mean Corpuscular Volume 91.8 80-100 fL Mean Corpuscular Hemoglobin 31.4 25-34 pg Mean Corpuscular Hemoglobin Concent 34.2 32-36 g/dl Platelet Count 174 130-400 K/uL Mean Platelet Volume 10.7 7.4-10.4 fL Neutrophils (%) (Auto) 86.3 % Lymphocytes (%) (Auto) 7.0 % Monocytes (%) (Auto) 6.0 % Eosinophils (%) (Auto) 0.1 % Basophils (%) (Auto) 0.1 % Neutrophils # (Auto) 14.43 1.4-6.5 K/uL Lymphocytes # (Auto) 1.17 1.2-3.4 K/uL Monocytes # (Auto) 1.00 0.11-0.59 K/uL Eosinophils # (Auto) 0.02 0-0.5 K/uL Basophils # (Auto) 0.01 0-0.2 K/uL RDW Standard Deviation 47.4 36.4-46.3 fL RDW Coefficient of Variation 14.0 11.5-14.5 % Immature Granulocyte % (Auto) 0.5 % Immature Granulocyte # (Auto) 0.08 0.00-0.02 K/uL Sodium Level 143 136-145 mmol/L Potassium Level 3.7 3.5-5.1 mmol/L Chloride Level 113 98-107 mmol/L Carbon Dioxide Level 23 21-32 mmol/L Anion Gap 7.0 3-11 mmol/L Blood Urea Nitrogen 13 7-18 mg/dl Creatinine 0.60 0.60-1.40 mg/dl Est Creatinine Clear Calc Drug Dose 120.0 ml/min Estimated GFR () 118.9 Estimated GFR (Non- 102.6 BUN/Creatinine Ratio 22.3 10-20 Random Glucose 81 70-99 mg/dl Calcium Level 7.5 8.5-10.1 mg/dl Assessment and Plan 71 year old male with asthma, recent Lyme, h/o ventricular arrhythmias 15 year ago, admitted with sepsis due to left lower lobe pneumonia Sepsis due to left lower lobe pneumonia - no evidence of shock thus far, BP > 90 systolic, LA 2.8. Patient has low BP at baseline, so 90's systolic not far from baseline. Pneumonia empirically treated with antibiotics. Vancomycin discontinued as prelim blood cultures show growth of neisseria meningitidis. - Continue mIVF at 125cc/hr - IV Zosyn and IV Levaquin - ID consulted given culture results - Nebulizers QID and q2 PRN - Morphine PRN pain Hypotension - Continue mIVF - Consider transfer to ICU if his BP drops further, despite IVF bolus Afib with RVR - new onset. Reverted back to NSR with fluid bolus - Will discuss residential anticoagulation options closer to time of discharge Asthma - Hold Advair, continue nebulizers DVT prophylaxis -Lovenox Full Code Resident Physician Supervision Note: I interviewed and examined the patient. Discussed with Dr. Watts and agree with findings and plan as documented in the note. Any exceptions or clarifications are listed here: None Documented By: Jayme Evans feeling much better. NSR. ongoing fatigue and mild nausea but nothing else. sob improved. no further chills. ros otherwise negative except for as above vitals noted nad breathing unlabored no pallor or icterus no rashes. 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 will still have to give strong consideration to anticoagulation at discharge but no urgent need DVT proph -lovenox 40mg daily Continued [facility] stay due to: multiple IV medications needed Discharge planning: home Resident Tracking Resident Involvement: Resident Care Provided Care Provided: Adult Hospital Medicine
[2016-05-28] MEDS: LEVOFLOXACIN / D5W 750 MG in PREMIXED IN D5W 150 ML IV SCH (08:41)
[2016-05-28] MEDS ORDERED: VANCOMYCIN TROUGH SCH (11:30)
[2016-05-28] MEDS: ENOXAPARIN 40 MG/0.4 ML SYR SC SCH (14:44)
--- NOTE | 2016-05-28 14:46 | ECHOCARDIOGRAM REPORT ---
*NOTICE TO RECEIVING [employer] This information is strictly Confidential and protected under [place] law. [place] law prohibits you from making any further disclosure of this information unless further disclosure is expressly permitted by the written consent of the person to whom it pertains or is authorized by law. A general authorization for the release of medical or other information is not sufficient for this purpose. Hospital accepts no responsibility if the information is made available to any other person, INCLUDING THE PATIENT. Interpretation Summary * Name: JIMBO DOYLE Study Date: 05/28/2016 09:03 AM BP: 143/84 mmHg * Patient Location: C.2T\S\S234\S\1 HR: 94 * : 1945 (M/d/yyyy) Gender: Male Height: 70 in * Age: 71 yrs Ethnicity: [place] Weight: 175 lb * Ordering Physician: Leni Watts. * Referring Physician: No Doctor, Assigned * Performed By: Bushra Knapp RCS * * Reason For Study: A-FIB * BSA: 2.0 m2 * -- Conclusions -- * 1. Normal LV size. Mild concentric LVH. * 2. Normal LV systolic function. LVEF 55-60%. No regional wall motion abnormalities. * 3. Normal RV size and function. * 4. Trace MR, Trace TR. * 5. Borderline PH. Est PASP 35-40mmHg. Normal estimated CVP. * 6. Moderae size pleural effusion with echogenic debris. * 7. No prior studies for comparison . Procedure Details * A complete two-dimensional transthoracic echocardiogram was performed (2D, M-mode, Doppler and color flow Doppler). Left Ventricle * The left ventricle is grossly normal size. * There is mild concentric left ventricular hypertrophy. * Ejection Fraction = 55-60%. * No regional wall motion abnormalities noted. Right Ventricle * The right ventricle is mild to moderately dilated. * The right ventricular systolic function is normal as assessed by tricuspid annular plane systolic excursion (TAPSE) (normal >1.5 cm). Atria * The left atrial size is normal. * The right atrium is mild to moderately dilated. * No ASD detected; PFO is not assessed. Mitral Valve * The mitral valve is grossly normal. * There is no mitral valve stenosis. * There is trace mitral regurgitation. Tricuspid Valve * The tricuspid valve is not well visualized, but is grossly normal. * There is no tricuspid stenosis. * There is trace tricuspid regurgitation. Aortic Valve * The aortic valve opens well. * The aortic valve is trileaflet. * No hemodynamically significant valvular aortic stenosis. * There is no significant aortic regurgitation. Pulmonic Valve * The pulmonary valve is inadequately visualized, but the Doppler data is adequate for interpretation. * There is no pulmonic valvular stenosis. * Trace pulmonic valvular regurgitation. Great Vessels * No Doppler or imaging evidence of an aortic coarctation. Pericardium/Pleural * There is no pericardial effusion. * Moderate size left pleural effusion. Great Vessels * Normal inferior vena cava size and collapsability with sniff indicates a normal right atrial pressure of 3 mmHg * Borderline pulmonary hypertension 35-40mmHg. MMode 2D Measurements and Calculations IVSd 1.2 cm IVSs 1.8 cm LVIDd 4.8 cm LVIDs 3.3 cm LVPWd 1.1 cm LVPWs 1.2 cm IVS/LVPW 1.1 FS 30.0 % EDV(Teich) 106.3 ml ESV(Teich) 45.6 ml EF(Teich) 57.1 % EDV(cubed) 108.9 ml ESV(cubed) 37.4 ml EF(cubed) 65.7 % % IVS thick 51.9 % % LVPW thick 5.8 % LV mass(C)d 203.4 grams LV mass(C)dI 103.2 grams/m\S\2 LV mass(C)s 178.6 grams LV mass(C)sI 90.6 grams/m\S\2 SV(Teich) 60.7 ml SI(Teich) 30.8 ml/m\S\2 SV(cubed) 71.5 ml SI(cubed) 36.3 ml/m\S\2 Ao root diam 4.1 cm Ao root area 13.5 cm\S\2 ACS 2.2 cm LA dimension 3.8 cm LA/Ao 0.93 LVOT diam 2.0 cm LVOT area 3.2 cm\S\2 LVAd ap4 34.0 cm\S\2 LVLd ap4 8.7 cm EDV(MOD-sp4) 109.3 ml EDV(sp4-el) 112.2 ml LVAs ap4 18.8 cm\S\2 LVLs ap4 6.6 cm ESV(MOD-sp4) 45.6 ml ESV(sp4-el) 45.7 ml EF(MOD-sp4) 58.2 % EF(sp4-el) 59.2 % LVAd ap2 40.2 cm\S\2 LVLd ap2 8.9 cm EDV(MOD-sp2) 148.7 ml EDV(sp2-el) 154.3 ml LVAs ap2 24.9 cm\S\2 LVLs ap2 7.8 cm ESV(MOD-sp2) 66.9 ml ESV(sp2-el) 67.7 ml EF(MOD-sp2) 55.0 % EF(sp2-el) 56.1 % LVLd %diff 1.9 % EDV(MOD-bp) 128.1 ml LVLs %diff 15.4 % ESV(MOD-bp) 59.0 ml EF(MOD-bp) 53.9 % SV(MOD-sp4) 63.6 ml SI(MOD-sp4) 32.3 ml/m\S\2 SV(MOD-sp2) 81.8 ml SI(MOD-sp2) 41.5 ml/m\S\2 SV(MOD-bp) 69.1 ml SI(MOD-bp) 35.0 ml/m\S\2 SV(sp4-el) 66.4 ml SI(sp4-el) 33.7 ml/m\S\2 SV(sp2-el) 86.6 ml SI(sp2-el) 43.9 ml/m\S\2 Doppler Measurements and Calculations MV E max devaughn 86.8 cm/sec MV A max devaughn 58.8 cm/sec MV E/A 1.5 MV P1/2t max devaughn 78.7 cm/sec MV P1/2t 69.6 msec MVA(P1/2t) 3.2 cm\S\2 MV dec slope 331.2 cm/sec\S\2 MV dec time 0.16 sec Ao V2 max 137.8 cm/sec Ao max PG 7.6 mmHg Ao max PG (full) 3.4 mmHg YOKASTA(V,A) 2.4 cm\S\2 YOKASTA(V,D) 2.4 cm\S\2 LV V1 max PG 4.2 mmHg LV V1 max 103.0 cm/sec MR max devaughn 504.0 cm/sec MR max PG 101.6 mmHg PA V2 max 102.6 cm/sec PA max PG 4.2 mmHg PI max devaughn 231.1 cm/sec PI max PG 21.4 mmHg PI dec slope 187.8 cm/sec\S\2 PI P1/2t 360.5 msec TR max devaughn 304.1 cm/sec
--- NOTE | 2016-05-28 15:45 | Medical Consult ---
Consultation Date of Consultation: May 28, 2016. Attending Physician: Jayme Evans D.O. Reason for Consultation: Neisseria bacteremia History of Present Illness 71-year-old male with history of prostate cancer and asthma, otherwise in good health, was well until 1 day prior to admission when he had onset of fever , shaking chills, weakness and fatigue, and cough associated with left-sided chest pain. Symptoms worsened and he came to the emergency department where is found to have evidence of early sepsis with elevated lactate and white blood cell count, with chest x-ray, read by me, showing evidence of early left lower lobe pneumonia. Patient started empirically on broad-spectrum antibiotics, and now blood cultures are positive for Neisseria meningitides. he currently is receiving ceftriaxone 1 gram daily. No obvious exposure to other individuals with meningococcal infection. Has had several family members in close contact in the last day or so. Patient feeling slightly better since on antibiotics. Denies any significant headache, stiff neck stiffness, or photophobia. Denies any significant rash. 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) Allergies Coded Allergies: Fluticasone (Unverified Allergy, Severe, flu-like symptoms, 05/26/16) Current Inpatient Medications Current Inpatient Medications Medications (Trade) Dose Ordered Sig/Chante Route Start Time Stop Time Status Last Admin Dose Admin Ioversol (Optiray 320) 111 ml UD PRN IV 05/26/16 08:30 05/30/16 08:29 Enoxaparin Sodium 40 mg 40 mg DAILY@1400 SC 05/26/16 14:00 06/25/16 13:59 05/28/16 14:44 40 MG Sodium Chloride (Nss 1000ml) 1,000 ml @ 125 mls/hr Q8H IV 05/26/16 12:20 06/25/16 12:19 05/28/16 12:35 125 MLS/HR Acetaminophen (Tylenol Tab) 650 mg Q4H PRN PO 05/26/16 09:45 06/25/16 09:44 Ondansetron HCl 4 mg 4 mg Q6H PRN IV 05/26/16 09:45 06/25/16 09:44 05/27/16 15:06 4 MG Levofloxacin/Prmx (Levaquin / D5W/ Premixed D5W) 150 ml @ 100 mls/hr Q24H IV 05/27/16 09:00 06/01/16 10:29 05/28/16 08:41 100 MLS/HR Albuterol/ Ipratropium (Duoneb) 3 ml QIDR INH 05/26/16 12:00 06/25/16 11:59 05/28/16 11:42 3 ML Morphine Sulfate (MoRPHine SULFATE INJ) 4 mg Q4 PRN IV 05/26/16 11:15 06/09/16 11:14 Morphine Sulfate 2 mg 2 mg Q4 PRN IV 05/26/16 11:15 06/09/16 11:14 Ceftriaxone Sodium/Dextrose (Rocephin Inj/D5 50ml) 60 ml @ 120 mls/hr DAILY@0200 IV 05/27/16 02:00 06/10/16 01:59 05/28/16 02:20 120 MLS/HR Metoprolol Tartrate (Lopressor Iv) 5 mg Q4 PRN IV 05/27/16 06:30 06/26/16 06:29 05/27/16 14:04 5 MG Review of Systems Constitutional: + chills, + fatigue, + fever, + sweats, + weakness Eyes: No problem reported ENT: No problem reported Respiratory: + cough Cardiovascular: + chest pain Abdomen: No problem reported Musculoskeletal: No problem reported Genitourinary - Male: No problem reported Neurologic: No problem reported Endocrine: No problem reported Hematologic / Lymphatic: No problem reported Integumentary: No problem reported Allergic / Immunologic: No problem reported Physical Exam Date Time Temp Pulse Resp B/P Pulse Ox O2 Delivery O2 Flow Rate FiO2 05/28/16 15:01 36.8 95 16 130/79 93 Room Air 05/28/16 12:21 36.6 88 18 93 2.0 05/28/16 12:13 36.6 88 18 114/77 93 Room Air 05/28/16 11:43 102 18 93 Room Air 05/28/16 11:30 Nasal Cannula 2.0 05/28/16 08:00 Nasal Cannula 2.0 05/28/16 07:31 36.7 96 19 143/84 96 Nasal Cannula 2.0 05/28/16 07:11 103 18 97 Nasal Cannula 2.0 05/28/16 04:47 36.7 94 18 115/75 93 Nasal Cannula 2.0 05/28/16 04:00 Nasal Cannula 2.0 05/28/16 01:15 102 18 96 Nasal Cannula 2.0 05/27/16 23:59 Nasal Cannula 2.0 05/27/16 23:35 37.2 97 16 122/85 97 Nasal Cannula 2.0 05/27/16 20:00 Room Air 05/27/16 19:19 37.2 97 18 117/76 98 Nasal Cannula 2.0 05/27/16 16:16 99 104/69 05/27/16 16:00 96 Nasal Cannula 2.0 General Appearance: WD/WN, no apparent distress Head: normocephalic, atraumatic Eyes: normal inspection, EOMI, sclerae normal ENT: normal ENT inspection, hearing grossly normal, pharynx normal Neck: supple, no adenopathy, thyroid normal, trachea midline Respiratory/Chest: chest non-tender, no respiratory distress, no accessory muscle use, + rales (left base) Cardiovascular: regular rate, rhythm, no gallop, no murmur Abdomen/GI: normal bowel sounds, non tender, soft, no organomegaly Back: normal inspection, no CVA tenderness Extremities/Musculoskelatal: no calf tenderness, normal capillary refill, non- tender Neurologic/Psych: no motor/sensory deficits, alert, normal mood/affect, oriented x 3 Skin: normal color, warm/dry, + pertinent finding (2 small purplish lesions right wrist) Lymphatic: no adenopathy Laboratory Results RUN DATE: 05/28/16 [facility] LAB PAGE 1 RUN TIME: 7349 Specimen Inquiry PATIENT: JIMBO DOYLE LOC: [facility] U # : [id number] AGE/SX: 71/M ROOM: [facility] REG : 05/26/[address]: Jayme Evans D.O. : 1945 BED: 2 DIS : STATUS: ADM IN TLOC: SPEC #: [id number] MIKE: 05/26/16 STATUS: RES REQ #: [id number] RECD: 05/26/[address]: Roland Waters MD SOURCE: BLOOD ENTR: 05/26/16-075[address] [facility] [address]: Sarbjit Coffman D.O. SPDESC: ORDERED: BLOOD CULTURE Procedure Result Verified Site BLD CULT Preliminary 05/28/16-1439 Organism 1 NEISSERIA MENINGITIDIS SENS NO SENSITIVITY TO FOLLOW PLEASE SEE CULTURE NUMBER [id number] FOR SENSITIVITIES. Phoned Positive Blood Culture Gram Stain Report to JERONIMO GOYAL on 05/26/16 At 2333 By [facility]. Results were verbalized back to [facility]. Last 24 Hours Test 05/28/16 05:30 White Blood Count 16.71 K/uL Red Blood Count 3.79 M/uL Hemoglobin 11.9 g/dL Hematocrit 34.8 % Mean Corpuscular Volume 91.8 fL Mean Corpuscular Hemoglobin 31.4 pg Mean Corpuscular Hemoglobin Concent 34.2 g/dl Platelet Count 174 K/uL Mean Platelet Volume 10.7 fL Neutrophils (%) (Auto) 86.3 % Lymphocytes (%) (Auto) 7.0 % Monocytes (%) (Auto) 6.0 % Eosinophils (%) (Auto) 0.1 % Basophils (%) (Auto) 0.1 % Neutrophils # (Auto) 14.43 K/uL Lymphocytes # (Auto) 1.17 K/uL Monocytes # (Auto) 1.00 K/uL Eosinophils # (Auto) 0.02 K/uL Basophils # (Auto) 0.01 K/uL RDW Standard Deviation 47.4 fL RDW Coefficient of Variation 14.0 % Immature Granulocyte % (Auto) 0.5 % Immature Granulocyte # (Auto) 0.08 K/uL Sodium Level 143 mmol/L Potassium Level 3.7 mmol/L Chloride Level 113 mmol/L Carbon Dioxide Level 23 mmol/L Anion Gap 7.0 mmol/L Blood Urea Nitrogen 13 mg/dl Creatinine 0.60 mg/dl Est Creatinine Clear Calc Drug Dose 120.0 ml/min Estimated GFR () 118.9 Estimated GFR (Non- 102.6 BUN/Creatinine Ratio 22.3 Random Glucose 81 mg/dl Calcium Level 7.5 mg/dl CT ANGIOGRAM OF THE CHEST CLINICAL HISTORY: Chest pain, shortness of breath, hypoxia. COMPARISON STUDY: Noncontrast chest CT dated 11/19/2015 TECHNIQUE: Following the IV administration of 92 mL of Optiray-320, CT angiogram of the thorax was performed from the thoracic inlet to the lung bases utilizing the pulmonary embolus protocol. Images are reviewed in the axial, sagittal, and coronal planes. IV contrast was administered without complication. MIP imaging was performed. CT DOSE: 294.27 mGy.cm FINDINGS: No pathologically enlarged axillary mediastinal or hilar lymph nodes were visualized. There was no evidence of thoracic aortic dilatation. There were no pulmonary artery filling defects to indicate acute pulmonary embolism. There is a small loculated left pleural effusion. There is lower lobe rhonchi wall thickening most pronounced on the left. There is left lower lobe mucus plugging. There are left lower lobe airspace opacities, likely inflammatory. There is scattered hepatic hypodensities, similar to the prior study. IMPRESSION: 1. No CT evidence of acute pulmonary embolism 2. Lower lobe bronchial wall thickening with narrowing of the left lower lobe bronchus and areas of mucous plugging. There are left basal airspace opacities, likely inflammatory. Imaging subsequent to treatment is recommended in follow-up. Assessment & Plan 71 yo male in prior good health now with meningococcemia with apparent LLL pneumonia. I have changed therapy to IV ceftriaxone 2 grams daily, levofloxacin discontinued. Family and potential close contacts to receive prophylaxis. Will follow.
[2016-05-29] VITALS (9 sets, daily range): BP systolic 130–149; BP diastolic 72–77; PULSE 53–116; TEMP 36.9–37.2; O2SAT 91–95
[2016-05-29] MEDS: CEFTRIAXONE SOD INJ 2,000 MG in DEXTROSE 5% 50ML 50 ML IV SCH (01:58)
[2016-05-29] MEDS: SODIUM CHLORIDE 0.9% 1000ML 1,000 ML IV SCH ×3 (01:58→21:03)
[2016-05-29 07:08] LABS: BASO % 0.1 %; BASO ABS # 0.02 K/uL (0-0.2); COMPLETE YES; EOS % 1.3 %; HEMATOCRIT 35.1 % (42-52); IG% 0.4 %; LYMPH % 11.3 %; LYMPH ABS # 1.52 K/uL (1.2-3.4); MEAN CELL VOLUME 90.7 fL (80-100); MEAN CORPUSCULAR HEMOGLOBIN 31.3 pg (25-34); MEAN CORPUSCULAR HGB CONC 34.5 g/dl (32-36); MEAN PLATELET VOLUME 10.3 fL (7.4-10.4); NEUT % 76.9 %; PLATELET COUNT 210 K/uL (130-400); RED BLOOD COUNT 3.87 M/uL (4.7-6.1); WHITE BLOOD COUNT 13.49 K/uL (4.8-10.8)
[2016-05-29] MEDS: ALBUT/IPRATROP 3MG/0.5MG NEB 3 ML VIAL INH SCH ×4 (07:14→19:43)
[2016-05-29 07:30] LABS: BUN/CREATININE RATIO 11.6 (10-20); CALCIUM 7.5 mg/dl (8.5-10.1); CREATININE 0.6 mg/dl (0.60-1.40); POTASSIUM 3.5 mmol/L (3.5-5.1)
[2016-05-29] MEDS ORDERED: METOPROLOL SUCC 25MG EXT REL TAB PO ONE (12:51)
[2016-05-29] MEDS: ENOXAPARIN 40 MG/0.4 ML SYR SC SCH (13:34)
--- NOTE | 2016-05-29 15:09 | Family Medicine Progress Note ---
Progress Note Date of Service May 29, 2016. Subjective Pt evaluation today including: conversation w/ patient, conversation w/ family , physical exam, chart review, lab review, review of studies, conversation w/ [facility]fdc consultant, review of inpatient medication list Pain: none PO Intake: adequate Voiding: no voiding problems Patient with no acute events overnight. Patient says that he felt warm yesterday but had no recorded fever. He is still subjectively short of breath on exertion and still has a dry cough. Says theat family received prophylaxis for neisseria meningitidis. denies any chest pain, palpitations, headache, leg swelling, syncope, night sweats, or chills is still passing urine but has not had a bowel movement in two days All Other Systems: Reviewed and Negative Medications Current Inpatient Medications Medications (Trade) Dose Ordered Sig/Chante Route Start Time Stop Time Status Last Admin Dose Admin Ioversol (Optiray 320) 111 ml UD PRN IV 05/26/16 08:30 05/30/16 08:29 Enoxaparin Sodium 40 mg 40 mg DAILY@1400 SC 05/26/16 14:00 06/25/16 13:59 05/29/16 13:34 40 MG Sodium Chloride (Nss 1000ml) 1,000 ml @ 125 mls/hr Q8H IV 05/26/16 12:20 06/25/16 12:19 05/29/16 11:44 125 MLS/HR Acetaminophen (Tylenol Tab) 650 mg Q4H PRN PO 05/26/16 09:45 06/25/16 09:44 Ondansetron HCl (Zofran Inj) 4 mg Q6H PRN IV 05/26/16 09:45 06/25/16 09:44 05/27/16 15:06 4 MG Albuterol/ Ipratropium (Duoneb) 3 ml QIDR INH 05/26/16 12:00 06/25/16 11:59 05/29/16 11:16 3 ML Morphine Sulfate (MoRPHine SULFATE INJ) 4 mg Q4 PRN IV 05/26/16 11:15 06/09/16 11:14 Morphine Sulfate (MoRPHine SULFATE INJ) 2 mg Q4 PRN IV 05/26/16 11:15 06/09/16 11:14 Metoprolol Tartrate 5 mg 5 mg Q4 PRN IV 05/27/16 06:30 06/26/16 06:29 05/27/16 14:04 5 MG Ceftriaxone Sodium/Dextrose (Rocephin Inj/D5 50ml) 70 ml @ 120 mls/hr DAILY@0200 IV 05/29/16 02:00 06/12/16 01:59 05/29/16 01:58 120 MLS/HR Metoprolol Succinate (Toprol Xl Tab) 25 mg QAM PO 05/30/16 09:00 06/29/16 08:59 Objective Vital Signs Date Time Temp Pulse Resp B/P Pulse Ox O2 Delivery O2 Flow Rate FiO2 05/29/16 11:16 116 18 94 Room Air 05/29/16 08:29 92 Room Air 05/29/16 08:15 Room Air 05/29/16 08:13 36.9 100 17 130/72 92 Room Air 05/29/16 07:11 85 18 94 Room Air 05/29/16 00:00 91 Room Air 05/28/16 23:02 36.9 107 18 153/81 91 Room Air 05/28/16 20:32 103 18 95 Room Air 05/28/16 16:06 102 18 93 Room Air 05/28/16 16:00 Room Air 05/28/16 15:01 36.8 95 16 130/79 93 Room Air Physical Exam General Appearance: WD/WN, no apparent distress Respiratory/Chest: chest non-tender, lungs clear, normal breath sounds, no respiratory distress, no accessory muscle use Cardiovascular: no edema, no JVD, no murmur, + irregularly irregular Abdomen: normal bowel sounds, non tender, soft Extremities: non-tender, no pedal edema, normal capillary refill Neurologic/Psychiatric: alert, normal mood/affect, oriented x 3 Skin: normal color, warm/dry, no rash Assessment and Plan 71 year old male w/ PMH of asthma and lyme disease here with Neisseria Meningitidis pneumonia Pneumonia - Blood culture grew Neisseria meningitidis - Switched to IV ceftriaxone per ID recommendation - 125 mls IVF - Morphine PRN - will discuss with ID tomorrow as to what treatment patient should receive as outpatient - close contact received prophylaxis with cipro Afib (paroxysmal) - anticoagulation was discussed today at length - patient with [id number] showing yearly risk of 1.5%/year of stroke, showed benefits of anticoagulation outweigh risks - discussed benefits/risk of coumadin vs NOAC's - started on metoprolol 25mg OD - will check TSH and vit D Asthma - continue with nebs DVT prophylaxis w/ lovenox Dispo - Home w/ home nursing if PICC is decided to be needed by ID team Resident Physician Supervision Note: I interviewed and examined the patient. Discussed with Dr. Ramirez and agree with findings and plan as documented in the note. Any exceptions or clarifications are listed here: None Documented By: Jayme Evans feeling OK. no new complaints. ros otherwise negative except for as above vitals noted nad breathing unlabored HR fast again, question irreg vs ectopy a/p neisseria pneumonia w sepsis and bacteremia -improving - rocephin afib / now tachycardia -given prior documented afib and asymptomatic, no need for rhythm monitoring at this time -add metoprolol -discussed anticoagulation DVT proph - lovenox Continued [facility] stay due to: multiple IV medications needed
[2016-05-30] MEDS: CEFTRIAXONE SOD INJ 2,000 MG in DEXTROSE 5% 50ML 50 ML IV SCH (01:32)
[2016-05-30] MEDS: SODIUM CHLORIDE 0.9% 1000ML 1,000 ML IV SCH ×3 (06:45→21:44)
[2016-05-30 06:57] VITALS: BP 146/72; PULSE 67; TEMP 36.8; O2SAT 93
[2016-05-30 07:10] VITALS: PULSE 86; O2SAT 95
[2016-05-30] MEDS: ALBUT/IPRATROP 3MG/0.5MG NEB 3 ML VIAL INH SCH (07:10)
[2016-05-30 07:44] LABS: HEMATOCRIT 34.2 % (42-52); MEAN CELL VOLUME 90.2 fL (80-100); MEAN CORPUSCULAR HEMOGLOBIN 30.9 pg (25-34); MEAN CORPUSCULAR HGB CONC 34.2 g/dl (32-36); MEAN PLATELET VOLUME 10.5 fL (7.4-10.4); PLATELET COUNT 226 K/uL (130-400); RED BLOOD COUNT 3.79 M/uL (4.7-6.1); WHITE BLOOD COUNT 13.47 K/uL (4.8-10.8)
[2016-05-30 08:08] LABS: CREATININE 0.51 mg/dl (0.60-1.40)
[2016-05-30 08:20] LABS: THYROID STIMULATING HORMONE 3.99 uIu/ml (0.300-4.500)
[2016-05-30] MEDS ORDERED: IPRATROPIUM BROMIDE/ALBUTEROL respimat INH INH ONE (08:31)
[2016-05-30] MEDS ORDERED: ALBUT/IPRATROP 3MG/0.5MG NEB 3 ML VIAL INH PRN (08:45)
[2016-05-30] MEDS: METOPROLOL SUCC 25MG EXT REL TAB PO SCH (09:23)
[2016-05-30] MEDS: IPRATROPIUM BROMIDE/ALBUTEROL respimat INH INH SCH ×2 (13:44→16:43)
[2016-05-30] MEDS: ENOXAPARIN 40 MG/0.4 ML SYR SC SCH (13:45)
--- NOTE | 2016-05-30 14:09 | Family Medicine Progress Note ---
Progress Note Date of Service May 30, 2016. Subjective Pt evaluation today including: conversation w/ patient, conversation w/ family , physical exam, chart review, lab review, review of studies, conversation w/ licensed tax consultant, review of inpatient medication list Pain: none PO Intake: minimal Voiding: no voiding problems Patient with no acute events overnight Patient still feeling tired, with lack of appetite and dry cough. Otherwise ROS is negative as patient denies any fevers, night sweats, chills, chest pain, palpitations, productive cough, neck stiffness, photophobia, joint pain or rashes. Still not eating much food as he only ate a bit of fruit for breakfast. Patient passing urine but has not had a bowel movement in two days. All Other Systems: Reviewed and Negative Medications Current Inpatient Medications Medications (Trade) Dose Ordered Sig/Chante Route Start Time Stop Time Status Last Admin Dose Admin Enoxaparin Sodium 40 mg 40 mg DAILY@1400 SC 05/26/16 14:00 06/25/16 13:59 05/30/16 13:45 40 MG Sodium Chloride (Nss 1000ml) 1,000 ml @ 125 mls/hr Q8H IV 05/26/16 12:20 06/25/16 12:19 05/30/16 13:44 125 MLS/HR Acetaminophen (Tylenol Tab) 650 mg Q4H PRN PO 05/26/16 09:45 06/25/16 09:44 Ondansetron HCl (Zofran Inj) 4 mg Q6H PRN IV 05/26/16 09:45 06/25/16 09:44 05/27/16 15:06 4 MG Morphine Sulfate (MoRPHine SULFATE INJ) 4 mg Q4 PRN IV 05/26/16 11:15 06/09/16 11:14 Morphine Sulfate (MoRPHine SULFATE INJ) 2 mg Q4 PRN IV 05/26/16 11:15 06/09/16 11:14 Metoprolol Tartrate 5 mg 5 mg Q4 PRN IV 05/27/16 06:30 06/26/16 06:29 05/27/16 14:04 5 MG Ceftriaxone Sodium/Dextrose (Rocephin Inj/D5 50ml) 70 ml @ 120 mls/hr DAILY@0200 IV 05/29/16 02:00 06/12/16 01:59 05/30/16 01:32 120 MLS/HR Metoprolol Succinate (Toprol Xl Tab) 25 mg QAM PO 05/30/16 09:00 06/29/16 08:59 05/30/16 09:23 25 MG Albuterol/ Ipratropium (Combivent Respimat Inh) 1 puffs QID INH 05/30/16 13:00 06/29/16 12:59 05/30/16 13:44 1 PUFFS Albuterol/ Ipratropium (Duoneb) 3 ml Q2H PRN INH 05/30/16 08:45 06/29/16 08:44 Objective Vital Signs Date Time Temp Pulse Resp B/P Pulse Ox O2 Delivery O2 Flow Rate FiO2 05/30/16 08:00 Room Air 05/30/16 07:10 86 18 95 Room Air 05/30/16 06:57 36.8 67 16 146/72 93 Room Air 05/29/16 23:48 37.2 80 18 138/77 95 Room Air 05/29/16 19:43 71 18 94 Room Air 05/29/16 16:30 Room Air 05/29/16 15:57 36.9 53 18 149/76 93 Room Air 05/29/16 15:30 68 18 95 Room Air Physical Exam General Appearance: WD/WN, no apparent distress ENT: hearing grossly normal, pharynx normal Neck: supple, no adenopathy, no JVD, no carotid bruits, trachea midline Respiratory/Chest: lungs clear, no respiratory distress, no accessory muscle use Cardiovascular: regular rate, rhythm, no edema, no JVD, no murmur Abdomen: normal bowel sounds, non tender, soft, no organomegaly Extremities: non-tender, no pedal edema, no calf tenderness, normal capillary refill Neurologic/Psychiatric: alert, normal mood/affect, oriented x 3 Laboratory Results Results Past 24 Hours Test 05/30/16 07:10 Range/Units White Blood Count 13.47 4.8-10.8 K/uL Red Blood Count 3.79 4.7-6.1 M/uL Hemoglobin 11.7 14.0-18.0 g/dL Hematocrit 34.2 42-52 % Mean Corpuscular Volume 90.2 80-100 fL Mean Corpuscular Hemoglobin 30.9 25-34 pg Mean Corpuscular Hemoglobin Concent 34.2 32-36 g/dl RDW Standard Deviation 44.9 36.4-46.3 fL RDW Coefficient of Variation 13.6 11.5-14.5 % Platelet Count 226 130-400 K/uL Mean Platelet Volume 10.5 7.4-10.4 fL Creatinine 0.51 0.60-1.40 mg/dl Est Creatinine Clear Calc Drug Dose 141.1 ml/min Estimated GFR () 127.1 Estimated GFR (Non- 109.7 25-Hydroxy Vitamin D Total 10.5 30-100 ng/ml Thyroid Stimulating Hormone (TSH) 3.990 0.300-4.500 uIu/ml Assessment and Plan 71 year old male w/ PMH of asthma and lyme disease here with Neisseria Meningitidis pneumonia Patient still feeling fatigued however he is improving clinically and has a stable wcc and has not had a fever. There was discussion as to what will be his treatment as an outpatient and we discussed that it will most likely be rocephin via PICC line but we will need to touch base with ID in order to confirm this tomorrow. Patient also said that he would like to start anticoagulation with one of the NOAC's and it was decided to start with xarelto due to the once a day dosing. Pneumonia - Blood culture grew Neisseria meningitidis - IV ceftriaxone per ID recommendation - 125 mls IVF - Morphine PRN - will discuss with ID tomorrow as to what treatment patient should receive as outpatient - close contact received prophylaxis with cipro Afib (paroxysmal) - patient with [id number] showing yearly risk of 1.5%/year of stroke, showed benefits of anticoagulation outweigh risks - will start Xarelto today - started on metoprolol for rate control - TSH normal. Asthma - continue with nebs Vitamin D - decreased vit D (10.5) - will start vit D supplementation DVT prophylaxis w/ lovenox Dispo - Social service consult to set up PICC and ceftriaxone - Home w/ home nursing if PICC is decided to be needed by ID team Resident Physician Supervision Note: I interviewed and examined the patient. Discussed with Dr. Ramirez and agree with findings and plan as documented in the note. Any exceptions or clarifications are listed here: None Documented By: Jayme Evans feeling good overall, thought about it and decided NOAC for afib no new complaints otherwise ros otherwise negative except for as above vitals noted nad breathing unlabored no rashes no pallor or icterus neisseria sepsis/pneumonia/bacteremia - improving. on IV rocephin - on review, anticipate that likely course will be completed as IV rocephin as well - will need to confirm w ID before placing PICC, but likely this will be the course. hopefully all can be arranged then to get him home by late on 05/31 afib - rate controlled, may be back in NSR. anticoagulation w xarelto otherwise as above
[2016-05-30 14:52] VITALS: BP 148/85; PULSE 93; TEMP 36.9; O2SAT 93
[2016-05-30] MEDS ORDERED: RIVAROXABAN 20 MG TAB PO SCH (16:30)
[2016-05-30 23:09] VITALS: BP 163/81; PULSE 96; TEMP 37.2; O2SAT 93
[2016-05-31] MEDS: CEFTRIAXONE SOD INJ 2,000 MG in DEXTROSE 5% 50ML 50 ML IV SCH (01:30)
[2016-05-31] MEDS: IPRATROPIUM BROMIDE/ALBUTEROL respimat INH INH SCH ×2 (01:31→08:22)
[2016-05-31 03:58] VITALS: PULSE 78; O2SAT 93
[2016-05-31] MEDS: SODIUM CHLORIDE 0.9% 1000ML 1,000 ML IV SCH (05:48)
[2016-05-31 06:00] LABS: HEMATOCRIT 33.2 % (42-52); MEAN CORPUSCULAR HEMOGLOBIN 31.4 pg (25-34); MEAN CORPUSCULAR HGB CONC 34.9 g/dl (32-36); PLATELET COUNT 229 K/uL (130-400); RED BLOOD COUNT 3.69 M/uL (4.7-6.1); WHITE BLOOD COUNT 12.61 K/uL (4.8-10.8)
[2016-05-31 06:53] LABS: CREATININE 0.53 mg/dl (0.60-1.40)
[2016-05-31 07:18] VITALS: BP 139/77; PULSE 96; TEMP 37.4; O2SAT 93
[2016-05-31] MEDS: METOPROLOL SUCC 25MG EXT REL TAB PO SCH (08:21)
[2016-05-31] MEDS ORDERED: CHOLECALCIFEROL 1000 INTER.UNIT TAB PO SCH (09:00)
[2016-05-31] MEDS ORDERED: TPRSR25 PO (11:40)
[2016-05-31] MEDS ORDERED: XRL20 PO (11:40)
[2016-05-31] MEDS ORDERED: CEFT1INJ57 IV ×3 (11:40→12:11)
--- NOTE | 2016-05-31 11:53 | Discharge Instructions ---
Discharge Instructions Date of Service May 31, 2016. Admission Reason for Admission: Pneumonia, Severe Sepsis Discharge Discharge Diagnosis / Problem: Pnuemonia, Bacteremia, Paroxysmal Atrial Fibrillation Discharge Goals Goal(s): Decrease discomfort, Improve function, Increase independence, Improve disease control, Improve nutritional status, Learn about illness, Diagnostic testing, Therapeutic intervention, Screening, Prevent Disease Progression, Specific goals Activity Recommendations Activity Limitations: resume your previous activity . Instructions / Follow-Up Instructions / Follow-Up -Antibiotic treatment (Ceftriaxone) will be administered via IV at the Medical Treatment Unit for 7 days -Please take medication as prescribed -Please followup with Primary care provider this week -If you experience worsening symptoms including fever >100.4, chills, Shortness of breath, Chest pain, palpitation, bleeding, please call clinic or come to Emergency Department if concerned Current Hospital Diet Patient's current hospital diet: Regular Diet Discharge Diet Recommended Diet: Regular Diet Pending Studies Studies pending at discharge: no Medical Emergencies . Who to Call and When: Medical Emergencies: If at any time you feel your situation is an emergency, please call 911 immediately. . Non-Emergent Contact Non-Emergency issues call your: Primary Care Provider Call Non-Emergent contact if: you have a fever, your pain is not controlled, your pain is worsening, your pain is unusual for you, your pain is concerning you, you have any medication questions . . "Provider Documentation" section prepared by David Brennan. . VTE Core Measure Inpt VTE Proph given/why not?: Enoxaparin (Lovenox)SQ, Other Anticoagulation ( switched to Xarelto onlly during hospital stay)
[2016-05-31 13:01] VITALS: BP 139/77; PULSE 96; TEMP 37.4; O2SAT 93
--- NOTE | 2016-05-31 14:17 | Discharge Summary ---
Discharge Summary Date of Service May 31, 2016. (David Brennan MD) Discharge Summary Admission Date: May 26, 2016 at 09:39 Discharge Date: May 31, 2016 Discharge Disposition: Home Principal Diagnosis: Sepsis, Pneumonia, Paroxysmal Afib Immunizations: Have You Had Influenza Vaccine: Yes Influenza Vaccine Date: Feb 02, 2005 History of Tetanus Vaccine?: "MANY YEARS AGO" History of Pneumococcal: No History of Hepatitis B Vaccine: No Consultations: Infectious Disease (David Brennan MD) Medication Reconciliation New Medications: Albuterol Sulf (Albuterol Sulfate) 2.5 Mg/3 Ml Nebu 1 DOSE INH TIDM for 10 Days Ceftriaxone Sod (Rocephin) 1 Gm Inj 2 GM IV DAILY for 7 Days, #7 VIAL Metoprolol Succinate (Metoprolol Succinate ER) 25 Mg Tabcr 25 MG PO QAM for 30 Days, #30 CAP 1 Refill Rivaroxaban (Xarelto) 20 Mg Tab 20 MG PO DAILYBD for 30 Days, #30 TAB 1 Refill Continued Medications: Fluticasone-Salmeterol 115/21 Mcg (Advair Hfa 115/21 Mcg) 1 Aer Aer 1 PUFF INH BID, AER Discharge Exam Overnight, had episode of SOB, cough, oxygen saturation stable, SOB improved with nebulizer treatment. denies CP, Palpitation, calf tenderness Review of Systems: Constitutional: No chills, No fever, No weakness Respiratory: + shortness of breath (overnight, improved in AM), No cough, No sputum Cardiovascular: No chest pain, No palpitations Abdomen: No nausea, No pain, No vomiting Musculoskeletal: No calf pain, No swelling Genitourinary - Male: No dysuria, No hematuria, No urinary frequency, No urinary urgency Hematologic / Lymphatic: No abnormal bleeding/bruising, No clotting problems Integumentary: No itch, No rash Physical Exam: General Appearance: WD/WN, no apparent distress Eyes: PERRL, EOMI, sclerae normal Neck: supple, no adenopathy, trachea midline Respiratory/Chest: lungs clear, normal breath sounds, no respiratory distress Cardiovascular: regular rate, rhythm, no murmur, normal peripheral pulses Abdomen / GI: normal bowel sounds, non tender, soft Neurologic/Psychiatric: alert, normal mood/affect, normal reflexes Skin: normal color, warm/dry (David Brennan MD) Hospital Course This is a 71 yo M w/ hx of Prostate Cancer s/p prostatectomy (2010),hx of Asthma, who presented to ED with 24 hx of L-sided Chest pain, fevers, chills, SOB. Patient was febrile, tachycardic with elevated White Ct 20.64. CXR/CT was consistent with LLL PNA.Patient was admitted with Sepsis secondary to LLL PNA. He was given IV NS , started on IV broad spectrum abx (Zosyn, Levaquin, Vancomycin). Blood cultures were positive for N. Meningitidis. ID was consulted. ABX switched to IV Ceftriaxone Monotherapy. 2g daily for a total of 10 days. Patient was also managed for new onset Atrial fib while in hospital, ECHO showed Normal LV size. Mild concentric LVH., Normal LV systolic function. EF 55 -60%. No regional wall motion abnormalities, Normal RV size and function. Patient was started on Xarelto, Metoprolol. Patient showed clinical improvement during hospital stay , Leukocytosis improved. On 05/30, patient did have sob requiring nebulizer as Inhaler did not provide relief. On 05/31 he was sent home with 7 more days or IV Ceftriaxone 2 g daily to be administered at Medical Treatment Unit. He was also discharged on new prescriptions for Xarelto and sent home with prescription for albuterol nebulizer Total Time Spent: Greater than 30 minutes This includes examination of the patient, discharge planning, medication reconciliation, and communication with other providers. (David Brennan MD) Resident Physician Supervision Note: I was present with Dr. Brennan during the history and exam. I discussed the case with the resident and agree with the findings and plan as documented in the note. Any exceptions or clarifications are listed here: 71-year-old male with pneumonia secondary to Neisseria with new onset atrial fibrillation during the hospitalization. He is discharged today with IV antibiotics arrange for the medical treatment needed for the next 7 days. Also will be discharged on Xarelto and metoprolol for his atrial fibrillation. I will see the patient in the outpatient office, and once he is completed with the IV antibiotics we could discuss further evaluation of his atrial fibrillation. I suspect it may be secondary to the acute infection; may consider a Holter monitor or event monitor, and if these are negative for recurrent atrial fibrillation, at that point would be able to discontinue the anticoagulation. It is noted that upon discharge, the patient was a normal sinus rhythm and had been for several days prior to his discharge. Documented By: Sarbjit Coffman Total Time Spent: Greater than 30 minutes The total time spent for discharge this patient, including a bedside exam and discussion with the patient, discussion with case management, writing of orders including outpatient antibiotics and DME (nebulizer), as well as discussing with consultants (infectious disease) took 40 minutes in total. (Sarbjit Coffman.,D.O.) Discharge Instructions Please refer to the electronic Patient Visit Report (Discharge Instructions) for additional information. (David Brennan MD) Resident Tracking Resident Involvement: Resident Care Provided Care Provided: Adult Hospital Medicine (David Brennan MD)
[2016-05-31] MEDS ORDERED: RRALBUT083 INH (14:33)
== END 2016-05-31 14:45 | disposition home or self-care (01) | DRG 871 ==
LOC: ENRESERVDT → ENRESERVTM → C.EDA 07:43 → C.2T 09:39 → C.MS2W 05-28 14:37
PROVIDERS: ADMIT Internal Medicine; ATTEND Family Medicine
DX: A41.89 Other specified sepsis (principal); J15.8 Pneumonia due to other specified bacteria; I48.0 Paroxysmal atrial fibrillation; J45.909 Unspecified asthma, uncomplicated; Z85.46 Personal history of malignant neoplasm of prostate

== ENCOUNTER → 2016-06-16 | Outpatient (CLI) | payer BC ==
[~2016-06-16] MED LIST: FLUT115A INH; RRALBUT083 INH; TPRSR25 PO; XRL20 PO
--- NOTE | 2016-06-16 12:22 | DIAGNOSTIC IMAGING REPORT ---
CHEST 2 VIEWS ROUTINE CLINICAL HISTORY: Acute bronchospasm COMPARISON STUDY: 05/26/2016 FINDINGS: Since the prior study, the patient has developed a small right pleural effusion, and smaller moderate left pleural effusion. Associated basilar airspace opacities are likely atelectatic although an inflammatory process could appear similar. There are presumed postsurgical changes involving the distal right clavicle. The upper lung zones are clear. There is no failure. There is no left-sided rib deformity. IMPRESSION: Interval development of a [id number] left pleural effusion, and small right pleural effusion. There are associated bibasilar airspace opacities (atelectasis favored over pneumonia). Clinical and radiographic follow-up is recommended. Electronically signed by: Darryl Yee M.D. 06/16/2016 12:21 PM Dictated Date/Time: 06/16/2016 12:19 PM
== END | disposition home or self-care (01) ==
LOC: C.RAD 11:48
PROVIDERS: ATTEND Family Medicine
DX: J98.01 Acute bronchospasm (principal); Z86.19 Personal history of other infectious and parasitic diseases; J90 Pleural effusion, not elsewhere classified

== ENCOUNTER → 2016-11-26 | Outpatient (CLI) | payer BC ==
--- NOTE | 2016-11-26 16:01 | DIAGNOSTIC IMAGING REPORT ---
CHEST 2 VIEWS ROUTINE CLINICAL HISTORY: Extrinsic asthma. COMPARISON STUDY: Chest CT May 26, 2016 and chest radiograph June 16, 2016. FINDINGS: Lung volumes are normal. No pneumothorax or pleural effusion is present. There is no evidence of pulmonary edema. Cardiomediastinal silhouette is normal. Minimal linear left basilar opacity favors atelectasis or scarring. There is no consolidation to suggest pneumonia. Old bilateral rib fractures are noted. IMPRESSION: 1. No acute cardiopulmonary findings. 2. Linear left basilar opacity which favors atelectasis or scarring. Electronically signed by: Miky Garcia M.D. 11/26/2016 4:00 PM Dictated Date/Time: 11/26/2016 3:58 PM
== END | disposition home or self-care (01) ==
LOC: C.RAD1850 14:54
PROVIDERS: ATTEND Internal Medicine Pulmonary Disease
DX: J45.909 Unspecified asthma, uncomplicated (principal); R91.8 Other nonspecific abnormal finding of lung field

== ENCOUNTER 2019-03-18 20:37 | Observation (INO) ==
[2019-03-18] MEDS ORDERED: SODIUM CHLORIDE 0.9% 1000ML 1,000 ML IV SCH (21:15)
--- NOTE | 2019-03-18 21:15 | Emergency Department Note ---
Entered by Bulmaro Woodson acting as a scribe for History of Present Illness General Chief complaint: Illness Stated complaint: VOMITING, TROUBLE WALKING/BALANCE, WEAKNESS Time Seen by Provider: 03/18/19 20:56 Source: patient History of Present Illness Onset (ago): week(s) 3 Pain Consistency: + other (worsening) Current Pain Intensity: 0 Quality: + other (weakness) Associated symptoms: + other (Positive for weight loss, vomiting, nausea, difficulty walking, and a decreased appetite. Negative for pain, bloody stools, constipation, CP, SOB, urinary symptoms, back pain, and current nausea. ) The patient is a 74 year old male who presents to the emergency department with complaints of worsening weakness beginning three weeks ago. The patient states that he has been treated for gastritis for the last three weeks. The patient states that he has lost 10-15 pounds over the last three weeks, and he notes that he has been persistently vomiting. He reports that he becomes nauseous before eating. He also complains of difficulty walking and a decreased appetite. The patient states that he has difficulty walking because he is so weak. He denies any pain, bloody stools, constipation, CP, SOB, back pain, urinary symptoms, and current nausea. He notes that he was healthy before becoming sick three weeks ago. He reports that he has not had any alcohol in the last three weeks. The patient states that he does not smoke cigarettes. Home Medications Home Medications Medication Instructions Recorded Confirmed Type montelukast 10 mg tablet 10 mg PO HS 01/22/19 03/18/19 History famotidine 20 mg PO QAM 03/04/19 03/18/19 History prochlorperazine maleate 10 mg PO QID PRN #14 tab 03/05/19 03/18/19 Rx fluticasone furoate-vilanterol 1 puffs INH HS 03/18/19 03/18/19 History [Breo Ellipta] Allergies Allergy/AdvReac Type Severity Reaction Status Date / Time fluticasone AdvReac Severe Fatigue, Verified 03/18/19 21:11 headache Past Med/Surg History Family History (Updated 03/18/19 @ 21:11 by Bulmaro Woodson) Other No significant family history Social History (Updated 03/18/19 @ 21:11 by Bulmaro Woodson) Feels Safe at Home: Yes Smoking Status: Never smoker Hx Alcohol Use: Yes Review of Systems See HPI for pertinent positives & negatives. and A total of 10 systems reviewed and were otherwise negative Physical Exam Vital Signs Vital Signs - 24 hr 03/18/19 20:44 03/18/19 21:30 03/18/19 21:41 Temperature 36.3 C L Temperature Source Oral Pulse Rate 104 H 77 72 Pulse Rate [Finger] Pulse Rate from SpO2 Sensor 73 Pulse Rhythm Regular Respiratory Rate 18 18 18 Respiratory Effort / Characteristics Non-Labored Spontaneous Respiratory Depth Normal Respiratory Pattern Regular Blood Pressure 112/81 126/92 Blood Pressure [Left Arm] Blood Pressure Mean 91 114 Blood Pressure Mean [Left Arm] Blood Pressure Position Sitting Blood Pressure Position [Left Arm] Pulse Oximetry 90 90 96 Oxygen Delivery Method Room Air Room Air Room Air Sepsis Recent Fever Within 48 Hours No Sepsis New/Unexplained Change in Mental Status No Sepsis Action Taken by Nursing No Action Required 03/18/19 22:00 03/18/19 22:30 03/18/19 23:00 Temperature Temperature Source Pulse Rate 70 71 71 Pulse Rate [Finger] Pulse Rate from SpO2 Sensor 70 71 72 Pulse Rhythm Respiratory Rate 19 17 17 Respiratory Effort / Characteristics Respiratory Depth Respiratory Pattern Blood Pressure 132/89 124/83 125/84 Blood Pressure [Left Arm] Blood Pressure Mean 111 92 104 Blood Pressure Mean [Left Arm] Blood Pressure Position Blood Pressure Position [Left Arm] Pulse Oximetry 97 97 98 Oxygen Delivery Method Room Air Room Air Room Air Sepsis Recent Fever Within 48 Hours Sepsis New/Unexplained Change in Mental Status Sepsis Action Taken by Nursing 03/19/19 00:32 Temperature Temperature Source Pulse Rate Pulse Rate [Finger] 69 Pulse Rate from SpO2 Sensor Pulse Rhythm Respiratory Rate 16 Respiratory Effort / Characteristics Respiratory Depth Normal Respiratory Pattern Blood Pressure Blood Pressure [Left Arm] 129/92 Blood Pressure Mean Blood Pressure Mean [Left Arm] 104 Blood Pressure Position Blood Pressure Position [Left Arm] Sitting Pulse Oximetry 96 Oxygen Delivery Method Sepsis Recent Fever Within 48 Hours Sepsis New/Unexplained Change in Mental Status Sepsis Action Taken by Nursing CONSTITUTIONAL/VITAL SIGNS: Reviewed / noted above. GENERAL: Non-toxic in appearance. INTEGUMENTARY: Warm, dry, and [place]. HEAD: Normocephalic. EYES: without scleral icterus or trauma. ENT/OROPHARYNX: clear and moist. LYMPHADENOPATHY/NECK: Is supple without lymphadenopathy or meningismus. RESPIRATORY: Lungs clear and equal. CARDIOVASCULAR: Regular rate and rhythm. GI/ABDOMEN: Soft and nontender. No organomegaly or pulsatile mass. No rebound or guarding. Normal bowel sounds. EXTREMITIES: Warm and well perfused. BACK: No CVA tenderness. NEUROLOGICAL: Intact without focal deficits. PSYCHIATRIC: normal affect. MUSCULOSKELETAL: Normally developed with good muscle tone. Course Course 2101: The patient was evaluated in room B6. A complete history and physical exam was performed. 0035: Upon reevaluation, the patient is stable. I discussed the findings and the treatment plan with the patient. He expresses agreement and understanding. I spoke with Dr. Jung of the [facility] Hospitalist Service. The patient will be evaluated for further management. Consultations Consultation #1: I reviewed the patient's case with Dr. Jung - Hospitalist, [facility]. He will evaluate the patient for further management. Time: 00:35 Administered Medications Ioversol (Optiray 320 100ml) 100 ml IV ONCE PRN PRN Reason: Interaction Checking Stop: 03/22/19 23:32 Last Admin: 03/18/19 23:33 Dose: 93 ml Documented by: [id number] Discontinued Medications Sodium Chloride (Nss 1000ml) 1,000 mls @ 999 mls/hr IV .Q1H1M YADY Stop: 03/18/19 22:15 Last Infusion: 03/18/19 22:35 Dose: 0 mls/hr Documented by: [id number] Admin: 03/18/19 21:33 Dose: 999 mls/hr Documented by: [id number] Medical Decision Making Differential Diagnosis Differential Diagnosis includes but is not limited to dehydration, stroke, anemia, hypoglycemia, hyponatremia, hypernatremia, urinary tract infection, pneumonia, bronchitis, sepsis, gastroenteritis, additional abdominal pathology, metabolic abnormalities and infections. Medical Records Attestation: I reviewed the patient's medical records. Home Medications Current Medication List: was personally reviewed by me Laboratory Data Attestation: I reviewed the patient's lab results. Result diagrams: 03/18/19 21:29 03/18/19 21: Lab Results 03/18/19 03/18/19 Range/Units 21:29 21:29 WBC 8.64 (4.8-10.8) K/uL RBC 4.67 L (4.7-6.1) M/uL Hgb 15.0 (14.0-18.0) g/dL Hct 41.5 L (42-52) % MCV 88.9 (80-100) fL MCH 32.1 (25-34) pg MCHC 36.1 H (32-36) g/dL RDW Std Deviation 39.5 (36.4-46.3) fL RDW Coeff of Adarsh 12.4 (11.5-14.5) % Plt Count 261 (130-400) K/uL MPV 10.1 (7.4-10.4) fL Immature Gran % (Auto) 0.1 % Neut % (Auto) 66.8 % Lymph % (Auto) 19.4 % [place] % (Auto) 11.3 % Eos % (Auto) 2.2 % Baso % (Auto) 0.2 % Immature Gran # (Auto) 0.01 (0.00-0.02) K/uL Neut # (Auto) 5.76 (1.4-6.5) K/uL Lymph # (Auto) 1.68 (1.2-3.4) K/uL [place] # (Auto) 0.98 H (0.11-0.59) K/uL Eos # (Auto) 0.19 (0-0.5) K/uL Baso # (Auto) 0.02 (0-0.2) K/uL Sodium 138 (136-145) mmol/L Potassium 3.5 (3.5-5.1) mmol/L Chloride 106 (98-107) mmol/L Carbon Dioxide 25 (21-32) mmol/L Anion Gap 7.0 (3-11) BUN 18 (7-18) mg/dl Creatinine 0.78 (0.6-1.4) mg/dl Est Cr Clr Drug Dosing 80.4 ml/min Est GFR ( Amer) 104.5 Est GFR (Non-Af Amer) 90.2 BUN/Creatinine Ratio 22.6 H (10-20) Glucose 118 H (70-99) mg/dl Calcium 9.1 (8.5-10.1) mg/dl Magnesium 2.0 (1.8-2.4) mg/dl Total Bilirubin 0.5 (0.2-1) mg/dl AST 12 L (15-37) U/L ALT 17 (12-78) U/L Alkaline Phosphatase 45 (45-117) U/L Total Creatine Kinase 61 (39-308) U/L Total Protein 6.6 (6.4-8.2) gm/dl Albumin 3.4 (3.4-5.0) gm/dl Globulin 3.2 (2.5-4.0) gm/dl Albumin/Globulin Ratio 1.1 (0.9-2) TSH 2.430 (0.300-4.500) uIu/ml Imaging Data Radiologist's Impression: Radiology results as stated below per my review and the radiologist's interpretation: XR chest 1V portable FINDINGS: Lung volumes are normal. Lungs are clear. There is no pneumothorax or pleural effusion. Cardiac size is normal. Mediastinal contours are normal. There is no evidence for pulmonary edema. IMPRESSION: No acute cardiopulmonary findings. ACT 112: Negative or not required by law. Electronically signed by: Miky Garcia M.D. 03/18/2019 9:[address] ABDOMEN & PELVIS With Contrast: Numerous nonenhancing cysts in the liver suggests polycystic liver disease. Nodule measuring 1.6cm in the right adrenal gland is indeterminate. Recommend correlation with previous studies and consider MRI or CT adrenal mass protocol. Nonenhancing cyst in the left kidney is probably benign. No hydronephrosis or nephrolithiasis. Normal appendix. No bowel wall thickening or obstruction. No free air or free fluid. Radiologist: Noble Askew MD. Blood Pressure Blood Pressure Findings: Elevated blood pressure Blood Pressure Disposition: elevated BP felt to be situational MDM Narrative This is a 74-year-old male who presents to the ED with a chief complaint of generalized weakness, decreased appetite, occasional nausea and vomiting with p.o. intake as well as weight loss. The patient reports a 20 pound weight loss in the past few weeks. He has been treated for gastritis over the past several weeks with Carafate and famotidine. The patient is also taking Compazine. His symptoms persist. He became weak today to the point where he is having difficulty walking because of the lack of oral intake. The patient does have a history of alcohol dependence or frequent use. The patient states that he has not had any alcohol these for the past several weeks. His vital signs are stable. His heart rate is 104. He is afebrile. He denies any chest pains or shortness of breath or upper respiratory symptoms or recent illness. CBC and complete metabolic panel were normal, TSH is normal, chest x-ray was negative for acute disease. A CT scan of the abdomen pelvis performed with p.o. and IV contrast did not show any acute intra-abdominal pathology. There was evidence of polycystic liver disease and a right adrenal gland nodule. The patient was told the results of his tests. He was treated with IV fluids here. The patient will be seen by the hospitalist service for further inpatient evaluation and care. The patient lives alone and he was unable to get to the bathroom or walk without the assistance of his son. He may need inpatient rehab and possibly GI consultation for his persistent anorexia, nausea, vomiting and weight loss. Impression & Plan Weakness, Anorexia, Nausea and vomiting Discharge Plan Visit Data Chief Complaint: Illness Stated Complaint: VOMITING, TROUBLE WALKING/BALANCE, WEAKNESS ED Provider: Roland Fagan Discharge Problem: Weakness, Anorexia, Nausea and vomiting Patient Disposition: Being Evaluated by Hospitalist Forms Stand Alone Forms: [facility] Prescriptions Prescriptions: No Action montelukast 10 mg tablet 10 mg PO HS RF: 0 famotidine 20 mg tablet 20 mg PO QAM RF: 0 prochlorperazine maleate 10 mg tablet 10 mg PO QID PRN (Reason: nausea and vomiting) Qty: 14 RF: 0 Breo Ellipta 200-25 mcg/dose blister with device 1 puffs INH HS RF: 0 Referrals Referrals: Sarbjit Coffman DO [Primary Care Provider] - Discharge Problem: Nausea and vomiting Qualifiers: Vomiting type: unspecified Vomiting Intractability: non-intractable Qualified Code(s): R11.2 - Nausea with vomiting, unspecified The scribe's documentation has been prepared under my direction and personally reviewed by me in its entirety. I confirm that the note above accurately reflects all work, treatment, procedures, and medical decision making performed by me.
--- NOTE | 2019-03-18 21:34 | XRay Report ---
XR chest 1V portable CLINICAL HISTORY: weakness COMPARISON STUDY: Chest CT May 26, 2016. Chest radiograph March 04, 2019. FINDINGS: Lung volumes are normal. Lungs are clear. There is no pneumothorax or pleural effusion. Car diac size is normal. Mediastinal contours are normal. There is no evidence for pulmonary edema. IMPRESSION: No acute cardiopulmonary findings. ACT 112: Negative or not required by law. Electronically signed by: Miky Garcia M.D. 03/18/2019 9:33 PM
[2019-03-18 21:39] LABS: Basophils # (auto) 0.02 K/uL (0-0.2); Basophils % (auto) 0.2 %; Eosinophils # (auto) 0.19 K/uL (0-0.5); Eosinophils % (auto) 2.2 %; Hematocrit (blood only) 41.5 % (42-52); Immature Granulocytes # (auto) 0.01 K/uL (0.00-0.02); Immature Granulocytes % (auto) 0.1 %; Lymphocytes # (auto) 1.68 K/uL (1.2-3.4); Lymphocytes % (auto) 19.4 %; Mean Corpuscular Hemoglobin 32.1 pg (25-34); Mean Corpuscular Hgb Conc 36.1 g/dL (32-36); Mean Corpuscular Volume 88.9 fL (80-100); Mean Platelet Volume 10.1 fL (7.4-10.4); Monocytes # (auto) 0.98 K/uL (0.11-0.59); Monocytes % (auto) 11.3 %; Neutrophils # (auto) 5.76 K/uL (1.4-6.5); Neutrophils % (auto) 66.8 %; Platelet Count 261 K/uL (130-400); RDW Coefficient of Variation 12.4 % (11.5-14.5); RDW Standard Deviation 39.5 fL (36.4-46.3); Red Blood Count 4.67 M/uL (4.7-6.1); White Blood Count 8.64 K/uL (4.8-10.8)
[2019-03-18 21:59] LABS: Albumin Level 3.4 gm/dl (3.4-5.0); BUN Creatinine Ratio 22.6 (10-20); Calcium 9.1 mg/dl (8.5-10.1); Creatinine Clr Calc Pharmacy 80.4 ml/min; Est GFR (African American) 104.5; Est GFR (Non-African American) 90.2; Potassium 3.5 mmol/L (3.5-5.1)
[2019-03-18 22:09] LABS: Albumin Globulin Ratio 1.1 (0.9-2); Bilirubin,Total 0.5 mg/dl (0.2-1); Globulin 3.2 gm/dl (2.5-4.0); Thyroid Stimulating Hormone 2.43 uIu/ml (0.300-4.500); Total Protein 6.6 gm/dl (6.4-8.2)
[2019-03-18] MEDS ORDERED: IOVERSOL 100ml IV PRN (23:33)
--- NOTE | 2019-03-19 01:45 | History & Physical Report ---
Date of Service March 19, 2019 Assessment & Plan (1) Dehydration: Felix Lassiter is a 74-year-old male with a past medical history of alcohol abuse and asthma who presents with 3 weeks of persistent nausea vomiting not improved with antiemetics. Persistent nausea/vomiting 2/2 gastritis versus stricture Patient treated as outpatient for gastritis, not improving with Zofran or omeprazole No prior history of similar symptoms Intolerance to solid food, easy satiety, able to tolerate some liquids Suspect alcohol gastritis versus esophageal stricture Zofran IV Half-normal +20 K, 80 cc/h Patient appears volume depleted on exam with elevated BUN/creatinine ratio. Potassium low normal. Patient may benefit from gastroenterology consult versus EGD as outpatient History of alcohol abuse Patient with history of alcohol use, endorses sixpack twice a week recently with his last drink 3 weeks ago Denies any history of withdrawal symptoms, shakes, or tremors MADDIE S scoring, notify provider if parameters indicate need for pharmacologic treatment May contribute to gastritis with symptoms as above No history of emesis or blood per rectum/melena Folic acid daily Thiamine daily No signs of Wernicke Korsakoff on exam Asthma Continue Breo, montelukast Diet: Full liquid, advance as tolerated DVT prophylaxis: Lovenox 40 CODE STATUS: Full code Disposition: MedSurg for observation (2) Gastritis: (3) Nausea: (4) Body aches: (5) Weakness: (6) Anorexia: (7) Nausea and vomiting: History of Present Illness Chief Complaint: Intractable nausea vomiting Primary Care Provider: Sarbjit Coffman DO Felix is a 74-year-old male with a past medical history of asthma, chronic alcohol use, and gastritis who presents with 3 weeks of nausea and vomiting which has not improved with Compazine or Phenergan. Dulce reports his symptoms began about 3 weeks ago when he developed sudden onset nausea and decreased appetite. He has had intermittent vomiting without blood or bile. Any solid food induces vomiting. He is able to tolerate some liquids okay, but they make him nauseous. He has not experienced these symptoms before. He denies diarrhea or constipation. No flulike symptoms including fever, chills, sweats. He has not had abdominal pain. He feels globally weak and "wiped out "from not eating, but denies focal weakness. Denies chest pain or history of heartburn. He has seen his outpatient provider Dr. Harris who prescribed Zofran and omeprazole, neither of which improved his symptoms. he has a prior history of 6 pack of beer use twice a week, reports his last drink was 3 weeks ago and that he has never had withdrawal symptoms or complications related to alcohol. He has never used tobacco products. He denies recreational drug use. Surgical history: Denies surgical history Medical history: As above Medications: Reviewed in EMR Allergies: Reports he gets fatigue and headache with Flonase, but tolerates as outpatient Family history: Denies colorectal cancer, history noncontributory Social: Lives in a home with his , independent. CODE STATUS: Full code Allergies Allergy/AdvReac Type Severity Reaction Status Date / Time fluticasone AdvReac Severe Fatigue, Verified 03/18/19 21:11 headache Home Medications Home Medications Medication Instructions Recorded Confirmed Type montelukast 10 mg tablet 10 mg PO HS 01/22/19 03/18/19 History famotidine 20 mg PO QAM 03/04/19 03/18/19 History prochlorperazine maleate 10 mg PO QID PRN #14 tab 03/05/19 03/18/19 Rx fluticasone furoate-vilanterol 1 puffs INH HS 03/18/19 03/18/19 History [Kory Dowellta] Past Med/Surg History Family History (Updated 03/18/19 @ 21:11 by Bulmaro Woodson) Other No significant family history Social History (Updated 03/18/19 @ 21:11 by Bulmaro Woodson) Preferred Language: German Communication Ability: Effective Training Technician Required: No Beliefs That Will Affect Care: None Current Living Situation: Alone Other Information That Helps Us Care for You: No Feels Safe at Home: Yes Safety Concerns: Feels Safe At This Time Smoking Status: Never smoker Hx Alcohol Use: Yes Alcohol type: beer Hx Substance Use: No Review of Systems Review of Systems: All systems reviewed & are unremarkable except as noted in HPI & below Physical Exam Physical Exam: General: A&Ox3. NAD. Cooperative. HEENT: Atraumatic, normocephalic. Mucous membranes slightly tacky Pulm: CTAB A&P. -wheezes, -rales, -rhonchi. Symmetrical chest rise. No increase work of breathing. No respiratory distress. Cardiac: RRR, -mrg. Radial pulses intact and symmetrical. Abdominal: Nontender, nondistended, soft. BS present. CN II: Visual cornejo are full to confrontation. Pupils are equal and react to light and accomidation. Visual acuity grossly intact. CN III, IV, : At primary gaze, there is no eye deviation. EoM intact without nystagmus. No visual field cuts. CN V: Facial sensation is intact to soft touch in all 3 divisions bilaterally. CN VII: No facial asymmetry, full strength to eyebrow raise, smile, eye close, and cheek puff. CN VII: Hearing is grossly intact. CN IX, X: Palate elevates symmetrically. Phonation is normal without dysarthria. CN XI: Head turning and shoulder shrug are intact CN XII: Tongue protrudes midline. Sensory: Light touch, pinprick intact in upper and low extremities without deficit or asymmetry. Strength: RUE: Shoulder flexion/extension/internal rotation/external rotation, elbow flexion/extension, finger flexion/extension, antenna engineer strength, interosseous 5/5 LUE: Shoulder flexion/extension/internal rotation/external rotation, elbow flexion/extension, finger flexion/extension, antenna engineer strength, interosseous 5/5 RLE: Hip flexion, knee flexion/extension, ankle plantar flexion/dorsiflexion 5/5 LLE: Hip flexion, knee flexion/extension, ankle plantar flexion/dorsiflexion 5/5 Results & Data Vital Signs (Past 12 Hours) Vital Signs Temp Pulse Pulse Resp BP BP Pulse Ox 03/19/19 00:32 69 16 129/92 96 03/18/19 23:00 71 17 125/84 98 03/18/19 22:30 71 17 124/83 97 03/18/19 22:00 70 19 132/89 97 03/18/19 21:41 72 18 126/92 96 03/18/19 21:30 77 18 90 03/18/19 20:44 36.3 C L 104 H 18 112/81 90 Supervising Physician Co-Signing Physician Notes Attending addendum: I have physically seen this patient, have supervised the medical residents activities, and agree with the H&P unless as otherwise noted. Assessment and Plan: Nausea/vomiting/GI upset- Patient reports inability to tolerate much oral intake. Significant alcohol use history with differential as noted including alcoholic gastritis and esophageal stricture. Zofran 4 mg IV every 6 hours PRN. Famotidine 20 mg IV every 12 hours. IV fluids EGD as an outpatient. Alcohol abuse history- Check an alcohol level. Placed on AWSS scale. Folic acid 1 mg p.o. daily Thiamine 100 mg p.o. daily. Would also check vitamin B12 and folic acid levels, vitamin D levels. 1.6 cm indeterminate right adrenal gland nodule- Can be worked up as an outpatient. Remainder of orders and notations as noted. Resident Activity Tracking Resident Involvement: Resident Care Provided Care Provided: Adult Hospital Medicine (1) Gastritis Chronicity: unspecified Gastritis bleeding: without bleeding Gastritis type: unspecified gastritis Qualified Code(s): K29.70 - Gastritis, unspecified, without bleeding (2) Nausea and vomiting Vomiting Intractability: non-intractable Vomiting type: unspecified Qualified Code(s): R11.2 - Nausea with vomiting, unspecified
[2019-03-19] MEDS ORDERED: ONDANSETRON INJ 2 MG/ML 2 ML VIAL IV PRN (03:00)
[2019-03-19] MEDS ORDERED: PROCHLORPERAZINE MALEATE 5 MG TAB PO PRN (03:00)
[2019-03-19] MEDS ORDERED: PATIENT'S HEIGHT AND/OR WEIGHT NEEDED SCH (03:15)
--- NOTE | 2019-03-19 03:22 | Billing Data ---
Date of Service March 19, 2019 Coding Level of Care Code 83057 OBS Care - Level 3
[2019-03-19] MEDS ORDERED: THIAMINE HCL 100 MG in SYRINGE 9 ML IV SCH (03:30)
[2019-03-19] MEDS ORDERED: FOLIC ACID 1 MG in SYRINGE 9.8 ML IV SCH (03:30)
[2019-03-19] MEDS: SODIUM CHLOR 0.45% + 20MEQ KCL 20 MEQ/1,000 ML BAG IV SCH ×2 (04:17→16:32)
--- NOTE | 2019-03-19 07:12 | CT Scan Report ---
CT abd pelvis oral and IV con CLINICAL HISTORY: 74 years-old Male presenting with decreased appetite, nausea, vomiting, wt loss, we ak. TECHNIQUE: Multidetector CT of the abdomen and pelvis was performed after the administration of oral and intravenous contrast. IV contrast: 93 mL of Optiray 320. One or more dose lowering techniques wer e used consistent with the principles of ALARA (as low as reasonably achievable), including automatic exposure control, mA or kV adjustment to individual patient size, and/or use of iterative reconstruc tion. COMPARISON: Noncontrast Chest CT from 11/19/2015. CT DOSE (mGy.cm): The estimated cumulative dose is 281.02 mGy.cm. FINDINGS: Director Of Learning topogram: Unremarkable. Lung bases: Normal heart size. No pericardial or pleural effusion. No focal infiltrate or nodule at t he lung bases. Liver: Congenital hypoplasia of the medial segments of the left hepatic lobe. Numerous well-defined h ypodense lesions in the liver consistent with hepatic cysts. Patent hepatic vasculature. Biliary: No intrahepatic or extrahepatic biliary ductal dilatation. Normal gallbladder. Pancreas: Mild parenchymal atrophy. Spleen: Normal. Adrenal glands: 1.4 cm nodule in the right adrenal gland is consistent with a benign adenoma based on density on prior noncontrast chest CT from 11/19/2015 and closely stable size and appearance. Kidneys and ureters: Simple cyst noted in the left kidney. No hydronephrosis. Bladder: Circumferential bladder wall thickening. Trace perivesicular fat stranding. Pelvic organs: The prostate is surgically absent. No suspicious nodular enhancement at the urethral a nastomosis. Bowel: Normal appendix. No bowel obstruction. Trace sliding type hiatal hernia. Peritoneal cavity: No free fluid or intraperitoneal gas. Lymph nodes: No enlarged lymph nodes in the abdomen or pelvis. Vasculature: Atherosclerosis of the normal caliber abdominal aorta. IVC patent. Abdominal wall: Normal. Musculoskeletal: Several old posterolateral rib fractures evident. No destructive osseous lesion. Mil d degenerative changes in the spine. IMPRESSION: 1. No evidence of intra-abdominal malignancy. 2. Status post prostatectomy. 3. Bladder wall thickening could relate to prior chronic bladder outlet obstruction. Please correlat e with urinalysis to exclude cystitis given trace perivesicular fat stranding. 4. Polycystic liver. 5. 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 ACT 112: Negative or not required by law. Electronically signed by: Mic Pickett M.D. 03/19/2019 7:11 AM
[2019-03-19] MEDS ORDERED: ENOXAPARIN INJ 40 MG/0.4 ML SYR SQ SCH (09:00)
[2019-03-19] MEDS ORDERED: FAMOTIDINE 20 MG TAB PO SCH (09:00)
[2019-03-19 09:26] LABS: Appearance Urine Clear (Clear); Bilirubin Urine Negative (Negative); Blood Urine Negative (Negative); Color Urine Yellow; Glucose Urine UA Negative (Negative); Ketones Urine Trace (Negative); Leukocyte Esterase Urine Negative (Negative); Nitrite Urine Negative (Negative); Protein Urine Negative (Negative); Specific Gravity Urine 1.035 (1.000-1.030); Urobilinogen Urine Negative (Negative)
[2019-03-19] MEDS ORDERED: IOVERSOL 100ml IV PRN (15:11)
--- NOTE | 2019-03-19 15:30 | CT Scan Report ---
CT head/brain wo/w con CLINICAL HISTORY: Nausea and vomiting, Headaches COMPARISON STUDY: Head CT May 02, 2013. TECHNIQUE: Axial images of the head were obtained before and after intravenous administration of Opti ray 320 IV. Automated exposure control was utilized for the study. A dose lowering technique was uti lized adhering to the principles of ALARA. FINDINGS: Note is made of a 4 x 3.4 cm enhancing mass within the right cerebellar hemisphere on image 7 of 28. This is intra-axial in location. There is an adjacent 4.2 cm hypodense focus within the ant erior medial right cerebellar hemisphere. There is marked mass effect with effacement of the fourth v entricle. There is suspected mild dilatation of the lateral and third ventricles. There is periventri cular hypodensity. There may be cerebellar tonsillar herniation. No additional intracranial lesions a re present. There are no suspicious calvarial lesions. Secretions with air-fluid levels within the sp henoid sinuses are noted. There is ethmoid sinus mucosal thickening. IMPRESSION: 4 x 3.4 cm enhancing intra-axial mass within the right cerebellar hemisphere which could represent a metastasis or primary brain tumor. Adjacent 4.2 cm hypodense focus could reflect vasogen ic edema. However, an infarct related to compression of a vessel (such as PICA) from tonsillar hernia tion could appear similar. Marked mass effect with effacement of the fourth ventricle and suspected m ild hydrocephalus with transependymal flow. Suspected tonsillar herniation. Urgent neurosurgical cons ultation is recommended. Findings discussed with Dr. Arrington at time of dictation. ACT 112: Positive. There are findings on this exam that require communication between the performing entity and the patient following Patient Test Result Information Act ([place] Act 112) guidelines. Electronically signed by: Miky Garcia M.D. 03/19/2019 3:28 PM
--- NOTE | 2019-03-19 16:15 | Consultation Report ---
DATE OF CONSULTATION: 03/19/2019 GASTROINTESTINAL CONSULTATION NOTE REASON FOR EVALUATION: Nausea and vomiting. HISTORY OF PRESENT ILLNESS: The patient is a 74-year-old male who presented with weakness, nausea, vomiting, and falling episodes. The patient for the past 3 weeks has been having unexplained nausea and vomiting once or twice a day. During this time, he has lost between 10 and 15 pounds. Just putting food in his stomach makes him sick to his stomach and his symptoms are worse in the morning. He does not have any nighttime symptoms. He denies any abdominal pain, does notice that he gets occasional headaches along with this. He has been using some acid-reducing medication and Zofran without significant improvement. Since being hospitalized, he has had a CT scan of the abdomen that shows some cysts in the liver, but otherwise no significant abnormalities. PAST MEDICAL HISTORY: Negative. MEDICATIONS: Phenergan and famotidine. ALLERGIES: FLUTICASONE. FAMILY HISTORY: Noncontributory. SOCIAL HISTORY: The patient lives alone. He does not smoke. Drinks beer occasionally. REVIEW OF SYSTEMS: Positive for headaches and some double vision at times. PHYSICAL EXAMINATION: GENERAL: The patient appears awake, alert, in no acute distress. VITAL SIGNS: Blood pressure is 125/84, pulse 71, pulse ox is 98 on room air. ABDOMEN: Shows no scars. Bowel sounds are normal. There are no masses, tenderness, or hepatosplenomegaly. Walters sign is negative. IMPRESSION AND PLAN: The patient has nausea and vomiting of unclear etiology with essentially negative CT scan, negative laboratory work including CBC, chemistry profile, liver profile and urinalysis. At this point, I have ordered an ultrasound of his gallbladder. We ordered a CT of his brain with and without contrast to check for tumor mass effect and schedule an EGD for tomorrow for further evaluation.
--- NOTE | 2019-03-19 16:18 | Hospitalist Progress Note ---
Date of Service March 19, 2019 Assessment & Plan (1) Dehydration: Felix Lassiter is a 74-year-old male with a PMHx significant for prostate cancer s/p prostatectomy, alcohol abuse and asthma who presents with 3 weeks of persistent nausea, vomiting not improved with antiemetics, as well as frequent falls. Persistent nausea/vomiting Patient treated as outpatient for gastritis, not improving with Zofran or omeprazole No prior history of similar symptoms Intolerance to solid food, easy satiety, able to tolerate some liquids also new onset falls -GI consult placed -head CT ordered; showed R cerebellar mass- likely cause of above symptoms; referral placed to tertiary [facility] center for neurosurgery management continue Zofran IV prn History of alcohol abuse Patient with history of alcohol use, endorses sixpack twice a week recently with his last drink 3 weeks ago Denies any history of withdrawal symptoms, shakes, or tremors currently no withdrawal symptoms. Asthma Continue Breo, montelukast Diet: Full liquid, advance as tolerated DVT prophylaxis: Lovenox 40 CODE STATUS: Full code Disposition: MedSurg (2) Gastritis: (3) Nausea: (4) Body aches: (5) Weakness: (6) Anorexia: (7) Nausea and vomiting: Admission and Anticipated Discharge Date Admission Date: March 19, 2019 Subjective Mr. Lassiter stated he had no further episodes of N/V while hospitalized but did have decreased appetite which has been ongoing for the last 3 weeks. Son states he also has been having some mental decline with multiple falls at home as noted by his bruises. States that around Bobby, his dad was able to go on a hike with his sister and kids but currently has been falling. Pt denies any abd pain, melena or hematochezia, diarrhea or constipation. Review of Systems Review of Systems: All systems reviewed & are unremarkable except as noted in Subjective Physical Exam Physical Exam: General: Alert, oriented. No acute distress Skin: bruises noted on right elbow Psych: Appropriate mood and affect Neuro: CN II-XII grossly intact, gait unsteady, normal rapid alternating movements, finger to nose ith some delay. HEENT: NC/AT, PERRLA, EOMI, oropharynx moist. Chest: Nontender to palpation. CV: RRR, Normal s1, s2. No murmurs appreciated Resp: Breath sounds clear bilaterally, no increased effort of breathing. 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 Abdomen: Soft, nontender, nondistended. No guarding. No organomegaly appreciated. Extremities: No edema in lower extremities bilaterally. Results & Data ([facility]) Vital Signs (Past 12 Hours) Vital Signs Temp Pulse Resp BP Pulse Ox 03/19/19 15:06 36.5 C 81 20 138/88 95 03/19/19 07:22 36.5 C 58 L 18 122/75 99 Laboratory Results Laboratory Results - last 24 hr 03/18/19 03/18/19 03/19/19 21:29 21:29 03:17 WBC 8.64 RBC 4.67 L Hgb 15.0 Hct 41.5 L MCV 88.9 MCH 32.1 MCHC 36.1 H RDW Std Deviation 39.5 RDW Coeff of Adarsh 12.4 Plt Count 261 MPV 10.1 Immature Gran % (Auto) 0.1 Neut % (Auto) 66.8 Lymph % (Auto) 19.4 Sebastian % (Auto) 11.3 Eos % (Auto) 2.2 Baso % (Auto) 0.2 Immature Gran # (Auto) 0.01 Neut # (Auto) 5.76 Lymph # (Auto) 1.68 Sebastian # (Auto) 0.98 H Eos # (Auto) 0.19 Baso # (Auto) 0.02 Sodium 138 Potassium 3.5 Chloride 106 Carbon Dioxide 25 Anion Gap 7.0 BUN 18 Creatinine 0.78 Est Cr Clr Drug Dosing 80.4 Est GFR ( Amer) 104.5 Est GFR (Non-Af Amer) 90.2 BUN/Creatinine Ratio 22.6 H Glucose 118 H Calcium 9.1 Magnesium 2.0 Total Bilirubin 0.5 AST 12 L ALT 17 Alkaline Phosphatase 45 Total Creatine Kinase 61 Total Protein 6.6 Albumin 3.4 Globulin 3.2 Albumin/Globulin Ratio 1.1 Folate 17.29 TSH 2.430 Urine Color Urine Appearance Urine pH Ur Specific [place] Urine Protein Urine Glucose (UA) Urine Ketones Urine Blood Urine Nitrite Urine Bilirubin Urine Urobilinogen Ur Leukocyte Esterase 03/19/19 09:00 WBC RBC Hgb Hct MCV MCH MCHC RDW Std Deviation RDW Coeff of Adarsh Plt Count MPV Immature Gran % (Auto) Neut % (Auto) Lymph % (Auto) Sebastian % (Auto) Eos % (Auto) Baso % (Auto) Immature Gran # (Auto) Neut # (Auto) Lymph # (Auto) Sebastian # (Auto) Eos # (Auto) Baso # (Auto) Sodium Potassium Chloride Carbon Dioxide Anion Gap BUN Creatinine Est Cr Clr Drug Dosing Est GFR ( Amer) Est GFR (Non-Af Amer) BUN/Creatinine Ratio Glucose Calcium Magnesium Total Bilirubin AST ALT Alkaline Phosphatase Total Creatine Kinase Total Protein Albumin Globulin Albumin/Globulin Ratio Folate TSH Urine Color Yellow Urine Appearance Clear Urine pH 6.0 Ur Specific [place] 1.035 H Urine Protein Negative Urine Glucose (UA) Negative Urine Ketones Trace H Urine Blood Negative Urine Nitrite Negative Urine Bilirubin Negative Urine Urobilinogen Negative Ur Leukocyte Esterase Negative Resident Activity Tracking Resident Involvement: Resident Care Provided Care Provided: Adult Hospital Medicine (1) Gastritis Chronicity: unspecified Gastritis bleeding: without bleeding Gastritis type: unspecified gastritis Qualified Code(s): K29.70 - Gastritis, unspecified, without bleeding (2) Nausea and vomiting Vomiting Intractability: non-intractable Vomiting type: unspecified Qualified Code(s): R11.2 - Nausea with vomiting, unspecified
[2019-03-19] MEDS ORDERED: DEXAMETHASONE SOD PHOSPHATE 4 MG in SYRINGE 0 ML IV ONE (16:45)
--- NOTE | 2019-03-19 19:30 | Discharge Summary ---
Date of Service March 19, 2019 Admission HPI Per Admitting Provider Felix is a 74-year-old male with a past medical history of asthma, chronic alcohol use, and gastritis who presents with 3 weeks of nausea and vomiting which has not improved with Compazine or Phenergan. Dulce reports his symptoms began about 3 weeks ago when he developed sudden onset nausea and decreased appetite. He has had intermittent vomiting without blood or bile. Any solid food induces vomiting. He is able to tolerate some liquids okay, but they make him nauseous. He has not experienced these symptoms before. He denies diarrhea or constipation. No flulike symptoms including fever, chills, sweats. He has not had abdominal pain. He feels globally weak and "wiped out "from not eating, but denies focal weakness. Denies chest pain or history of heartburn. He has seen his outpatient provider Dr. Harris who prescribed Zofran and omeprazole, neither of which improved his symptoms. he has a prior history of 6 pack of beer use twice a week, reports his last drink was 3 weeks ago and that he has never had withdrawal symptoms or complications related to alcohol. He has never used tobacco products. He denies recreational drug use. Surgical history: Denies surgical history Medical history: As above Medications: Reviewed in EMR Allergies: Reports he gets fatigue and headache with Flonase, but tolerates as outpatient Family history: Denies colorectal cancer, history noncontributory Social: Lives in a home with his , independent. CODE STATUS: Full code Admission Exam Per Admitting Provider General: A&Ox3. NAD. Cooperative. HEENT: Atraumatic, normocephalic. Mucous membranes slightly tacky Pulm: CTAB A&P. -wheezes, -rales, -rhonchi. Symmetrical chest rise. No increase work of breathing. No respiratory distress. Cardiac: RRR, -mrg. Radial pulses intact and symmetrical. Abdominal: Nontender, nondistended, soft. BS present. CN II: Visual cornejo are full to confrontation. Pupils are equal and react to light and accomidation. Visual acuity grossly intact. CN III, IV, : At primary gaze, there is no eye deviation. EoM intact without nystagmus. No visual field cuts. CN V: Facial sensation is intact to soft touch in all 3 divisions bilaterally. CN VII: No facial asymmetry, full strength to eyebrow raise, smile, eye close, and cheek puff. CN VII: Hearing is grossly intact. CN IX, X: Palate elevates symmetrically. Phonation is normal without dysarthria. CN XI: Head turning and shoulder shrug are intact CN XII: Tongue protrudes midline. Sensory: Light touch, pinprick intact in upper and low extremities without deficit or asymmetry. Strength: RUE: Shoulder flexion/extension/internal rotation/external rotation, elbow flexion/extension, finger flexion/extension, consolidator strength, interosseous 5/5 LUE: Shoulder flexion/extension/internal rotation/external rotation, elbow flexion/extension, finger flexion/extension, consolidator strength, interosseous 5/5 RLE: Hip flexion, knee flexion/extension, ankle plantar flexion/dorsiflexion 5/5 LLE: Hip flexion, knee flexion/extension, ankle plantar flexion/dorsiflexion 5/5 Principal Diagnosis R cerebellar mass Discharge Exam General: Alert, oriented. No acute distress Skin: bruises noted on right elbow Psych: Appropriate mood and affect Neuro: CN II-XII grossly intact, gait unsteady, normal rapid alternating movements, finger to nose with some delay. HEENT: NC/AT, PERRLA, EOMI, oropharynx moist. Chest: Nontender to palpation. CV: RRR, Normal s1, s2. No murmurs appreciated Resp: Breath sounds clear bilaterally, no increased effort of breathing. No crackles/rhonchi/rales. Abdomen: Soft, nontender, nondistended. No guarding. No organomegaly appreciated. Extremities: No edema in lower extremities bilaterally. Discharge Data Allergies Allergy/AdvReac Type Severity Reaction Status Date / Time scallops Allergy Verified 03/19/19 10:13 fluticasone AdvReac Severe Fatigue, Verified 03/18/19 21:11 headache Consultations 03/19/19 00:42 ED Decision to Admit Stat 03/19/19 11:46 Consult Gastroenterology Routine 03/19/19 16:56 Burn CD for patient Stat Ordered Studies 03/18/19 21:11 CT abd pelvis oral and IV con Urgent 03/19/19 14:40 US abdomen limited Routine 03/19/19 14:41 CT head/brain wo/w con Routine Hospital Course (1) Dehydration: Felix Lassiter is a 74-year-old male with a PMHx significant for prostate cancer s/p prostatectomy, alcohol abuse and asthma who presents with 3 weeks of persistent nausea, vomiting not improved with antiemetics, as well as frequent falls. Persistent nausea/vomiting possibly secondary to right cerebellar mass Patient had been treated as outpatient for gastritis, not improving with Zofran or omeprazole No prior history of similar symptoms Intolerance to solid food, easy satiety, able to tolerate some liquids also new onset falls -GI consult placed -head CT ordered; showed R cerebellar mass- likely cause of above symptoms; -Transferred to [facility] in [facility] on 03/19/2019 for tertiary care for neurosurgery evaluation -Decadron 4mg q6h for edema associated with mass - given one dose before transfer History of alcohol abuse Patient with history of alcohol use, endorses sixpack twice a week recently with his last drink 3 weeks ago Denies any history of withdrawal symptoms, shakes, or tremors currently no withdrawal symptoms. Asthma On Breo, montelukast (2) Gastritis: (3) Nausea: (4) Body aches: (5) Weakness: (6) Anorexia: (7) Nausea and vomiting: Total Time Total Time Spent Total Time Spent (In Minutes): see attending attestation Discharge Plan Discharge Items Patient Disposition: Transfer Acute Care Hospital Reason For Visit: PERSISTENT N/V X 3 WEEKS Discharge Diagnosis: R cerebellar mass Activity: Per Instructions section Non-emergency contact: Primary Care Provider, Neurologist and Oncologist Call non-emergency contact if: your symptoms worsen Follow-up/Referrals: Sarbjit Coffman DO [Primary Care Provider] - Diet: Full liquid Addtl Attending Provider Instructions: Felix Lassiter is a 74-year-old male with a PMHx significant for prostate cancer s/p prostatectomy, alcohol abuse and asthma who presents with 3 weeks of persistent nausea, vomiting not improved with antiemetics, as well as frequent falls. Persistent nausea/vomiting Patient treated as outpatient for gastritis, not improving with Zofran or omeprazole No prior history of similar symptoms Intolerance to solid food, easy satiety, able to tolerate some liquids also new onset falls with N/V, new requirement of cane for walking -GI consult placed; Liver US and EGD pending on discharge -head CT ordered; showed R cerebellar mass- likely cause of above symptoms; referral placed to tertiary [facility] center for neurosurgery management -Decadron 4mg IV q6h for noted edema surrounding brain mass. continue Zofran IV prn History of alcohol abuse Patient with history of alcohol use, endorses sixpack twice a week recently with his last drink 3 weeks ago Denies any history of withdrawal symptoms, shakes, or tremors currently no withdrawal symptoms. Asthma Continue Breo, montelukast Diet: Full liquid, advance as tolerated DVT prophylaxis: Lovenox 40 CODE STATUS: Full code Pending Studies at Discharge: No Stand-Alone Forms: My [facility] Skilled Items Patient informed of condition?: Yes DNR: No Discharge Level of Care: Other Communicable Disease: No Discharge Prognosis: Stable Lines: None Urinary Catheter: No Medications and DC Order Prescriptions: Continued montelukast 10 mg tablet 10 mg PO HS RF: 0 famotidine 20 mg tablet 20 mg PO QAM RF: 0 prochlorperazine maleate 10 mg tablet 10 mg PO QID PRN (Reason: nausea and vomiting) Qty: 14 RF: 0 Breo Ellipta 200-25 mcg/dose blister with device 1 puffs INH HS RF: 0 Discharge Orders: Discharge Order (Routine); Ordered 03/19/19 Ordered By: Patricia Donovan Admission Data Admit Date/Time: 03/19/19 01:33 Attending Provider: Dhara Castillo Admit Provider: Mic Rodriguez Primary Care Provider: Sarbjit Coffman Other Providers: Ezequiel Jung ; Papo Arrington Other Interventions: Discharge Summary Assessment (RN) Last Done: 03/19/19 17:41 DC Date/Time DO NOT enter until pt leaves facility: 03/19/19 18:39 Supervising Physician Co-Signing Physician Notes Resident Physician Supervision Note: I independently interviewed and examined the patient and verified the ellington history and physical, reviewed labs and image studies, discussed the case with the resident Dr. Donovan and agree with the findings and care plan. Resident Activity Tracking Resident Involvement: Resident Care Provided Care Provided: Adult Hospital Medicine
[2019-03-19] MEDS ORDERED: FLUTICASONE/VILANTEROL 200/25MCG 14 PUFFS/INHALER INH SCH (21:00)
[2019-03-19] MEDS ORDERED: MONTELUKAST SODIUM 10 MG TABLET PO SCH (21:00)
[2019-03-19] MEDS ORDERED: DEXAMETHASONE SOD PHOSPHATE 4 MG in SYRINGE 0 ML IV SCH (22:45)
[2019-03-20] MEDS ORDERED: FOLIC ACID 1 MG TAB PO SCH (09:00)
[2019-03-20] MEDS ORDERED: THIAMINE HCL 100 MG TAB PO SCH (09:00)
== END 2019-03-19 18:39 | disposition short-term general hospital (02) ==
LOC: 2W 20:37 → ED 20:37 → SUATTDRO 03-19 01:33 → 2W 03-19 02:07

== ENCOUNTER 2019-07-23 09:49 | Inpatient (IN) ==
[2019-07-23] MEDS ORDERED: SODIUM CHLORIDE 0.9% 1000ML 1,000 ML IV SCH (10:15)
--- NOTE | 2019-07-23 10:19 | Emergency Department Note ---
Impression & Plan AMS (altered mental status) ED Provider Note NAME: JIMBO DOYLE AGE: 74 SEX: M ARRIVES VIA: Ambulance INFORMANT: Son ED PROVIDER(S): Parker Bates MD CHIEF COMPLAINT: Altered mental status PLAN: Disposition: Admitted Condition: [Guarded] MEDICAL DECISION MAKING: Patient presented because of change in mental status. He has a history of metastatic melanoma. This prompted a CT imaging study of his head which was negative for any acute change. The patient had unremarkable ECG. His laboratory testing revealed no significant leukocytosis. Chemistry panel was very concerning for hyponatremia and hypomagnesemia. He had saline hydration initiated and was given IV magnesium. I discussed his issue with his oncologist, Dr. Bae. He felt the patient should be admitted here and have his electrolyte issues addressed. I discussed this with the patient and his son. I consulted with the hospitalist service, . The patient was evaluated in the ER and admitted for further treatment. Triage Nursing notes reviewed and agree them. [Additional history obtained from] patient's Vital Signs: reviewed and remarkable for [no significant abnormalities] Differential diagnosis: Infection, hypoglycemia, electrolyte abnormalities, overdose, toxicologic, cardiac sources, intracerebral event, neurologic, trauma, as well as other pathologies. ER treatment provided: Saline hydration IV magnesium Diagnostics interpreted by me: Rate: 95 Rhythm:Normal sinus [place]:Normal QRS:Normal ST segements:No elevation or depression Other:No PACs or PVCs Cardiac Monitoring: Cardiac monitoring ordered by me: The patient was placed on continuous cardiac monitoring and observed. It revealed a normal sinus rhythm at 78 beats per minute without ectopy or evidence of dysrhythmia. Laboratory studies: [See below] as noted above Imaging studies: Head CT: A noncontrast CT scan of the head was performed and was negative for tumor, fracture, intracranial hemorrhage, or other acute pathology. Consultation(s): [facility] hospitalist service HPI: 74/M arrives for evaluation of altered mental status. 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 He also has a history of acute renal failure. The patient did recover from those events and the son states that he was felt to have succe ssful resection of the melanoma. There was no other melanoma issues found. He has had a progressive cognitive decline and his physicians are unsure why. The patient was doing well yesterday and actually went on a hike. The son states that he did fall. There is no noted head injury. Today he was supposed to have a MRI this morning and the was unable to get him out of bed. The patient was refusing to get up. Son states that he is not talking as much as usual but has had a decline with his speech and word finding issues have been prevalent. History is limited secondary to the patient's mental status. ROS: See above HPI for pertinent positives & negatives. A total of [10] systems reviewed and were otherwise negative. PAST MEDICAL HISTORY:[See Below] metastatic melanoma PAST SURGICAL HISTORY:[See Below] FAMILY HISTORY:[See Below] SOCIAL HISTORY:[See Below] , lives with family HOME MEDICATIONS:[See Below] ALLERGIES:[See Below] VITALS:[See Below] PHYSICAL EXAMINATION: GENERAL: Awake, but sleepy, abr-[id number], in no distress HENT: Normocephalic, atraumatic. Oropharynx unremarkable. EYES: Normal conjunctiva. Sclera non-icteric. NECK: Inspection normal. Non-tender. Supple. No nuchal rigidity. FROM. No masses. No stridor. RESPIRATORY: Clear to auscultation. No wheezes. No rales. Normal respiratory effort. CARDIAC: Normal rate. Normal rhythm. No murmurs. No rubs. Extremities warm and well perfused. Pulses equal. No JVD. GI: Soft, non-distended. No tenderness to palpation. No rebound or guarding. No masses. RECTAL: Deferred. MUSCULOSKELETAL: Scattered bruises to the right upper extremity. Chest exam ination reveals no tenderness. The back is symmetrical on inspection without obvious abnormality. There is no CVA tenderness to palpation. No joint edema. LOWER EXTREMITIES: Calves are equal size bilaterally and non-tender. No edema. No discoloration. NEURO: Altered sensorium. Moving arms and legs spontaneously. Not following commands. SKIN: No rash or jaundice noted. ED COURSE: Times/Reassessments: [] Procedures: [none] PDMP:[reviewed and no issues] [Critical Care:] [None] Parker Bates MD Past Med/Surg History Medical History Alcohol abuse (Acute) Asthma (Chronic) since childhood Fall (Acute) Head injury (Acute) History of brain tumor (Acute) Removed at [facility] Mar 20, 2019; metastatic lesion from melanoma (4.5cm) followed by XRT History of prostate cancer Melanoma primary site unknown; mets to brain Pneumonia Severe sepsis Visit for suture removal (Acute) Surgical History History of prostatectomy (Acute) ~2014 History of tonsillectomy and adenoidectomy (Acute) Family History Mother COPD (chronic obstructive pulmonary disease) Father Alzheimer disease Sudden sepsis Other No significant family history Social History Preferred Language: Uzbek Communication Ability: Effective Floor Tech Required: No Beliefs That Will Affect Care: None marital status: marital status details: 3 adult children; 2 sons; 1 daughter (physician in [place]) Current Living Situation: Spouse current occupational status: retired 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 [employer] Other Information That Helps Us Care for You: No Feels Safe at Home: Yes Safety Concerns: Feels Safe At This Time Smoking Status: Never smoker Hx Alcohol Use: Yes (none recently) Alcohol type: beer Alcohol Intake Frequency Comment: quit 03/2019 - heavy beer consumer prior to that Hx Substance Use: No Allergies Allergies Allergy/AdvReac Type Severity Reaction Status Date / Time scallops Allergy Severe N/V Verified 07/23/19 10:34 diarrhea fluticasone AdvReac Severe Fatigue, Verified 07/23/19 10:34 headache cat dander AdvReac Mild nasal Verified 07/23/19 10:34 congestion dog dander AdvReac Mild nasal Verified 07/23/19 10:34 congestion Home Meds Home Medications Medication Instructions Recorded Confirmed albuterol sulfate [Ventolin HFA] 2 puff INHALATION QID PRN 07/23/19 07/23/19 allopurinol 100 mg PO DAILY 07/23/19 07/23/19 econazole 1 applic TOPICAL BID 07/23/19 07/23/19 famotidine 20 mg PO DAILY 07/23/19 07/23/19 fluticasone furoate-vilanterol 1 inh INHALATION DAILY 07/23/19 07/23/19 [Kory Kim] ondansetron HCl 8 mg PO Q8H PRN 07/23/19 07/23/19 prednisone 10 mg PO .TAPER DOSE 07/23/19 07/23/19 prochlorperazine maleate 10 mg PO Q6H PRN 07/23/19 07/23/19 Previous Rx's Medication Instructions Recorded montelukast 10 mg tablet 10 mg PO HS #90 tab 04/17/19 Results & Data (ED) Vital Signs Vital Signs - 24 hr 07/23/19 10:02 07/23/19 10:14 07/23/19 10:44 Temperature 37.4 C Temperature Source Oral Pulse Rate 85 85 Pulse Rate from SpO2 Sensor 83 Respiratory Rate 20 16 Blood Pressure 145/61 H 140/79 Blood Pressure Mean 89 101 Pulse Oximetry 98 94 94 Oxygen Delivery Method Room Air Room Air Sepsis Recent Fever Within 48 Hours No Sepsis New/Unexplained Change in Mental Status No Sepsis Action Taken by Nursing No Action Required 07/23/19 11:09 07/23/19 11:11 07/23/19 11:12 Temperature Temperature Source Pulse Rate 82 78 80 Pulse Rate from SpO2 Sensor 86 81 Respiratory Rate 19 20 19 Blood Pressure 142/86 H Blood Pressure Mean 110 Pulse Oximetry 95 96 Oxygen Delivery Method Sepsis Recent Fever Within 48 Hours Sepsis New/Unexplained Change in Mental Status Sepsis Action Taken by Nursing 07/23/19 11:30 07/23/19 11:31 07/23/19 11:32 Temperature Temperature Source Pulse Rate 80 80 82 Pulse Rate from SpO2 Sensor 80 81 81 Respiratory Rate 20 19 21 Blood Pressure 131/79 Blood Pressure Mean 89 Pulse Oximetry 97 97 96 Oxygen Delivery Method Sepsis Recent Fever Within 48 Hours Sepsis New/Unexplained Change in Mental Status Sepsis Action Taken by Nursing 07/23/19 12:00 07/23/19 12:01 07/23/19 12:30 Temperature Temperature Source Pulse Rate 77 78 78 Pulse Rate from SpO2 Sensor 78 81 79 Respiratory Rate 22 20 21 Blood Pressure 128/73 Blood Pressure Mean 83 Pulse Oximetry 95 95 95 Oxygen Delivery Method Sepsis Recent Fever Within 48 Hours Sepsis New/Unexplained Change in Mental Status Sepsis Action Taken by Nursing 07/23/19 12:31 07/23/19 12:32 07/23/19 13:00 Temperature Temperature Source Pulse Rate 85 83 88 Pulse Rate from SpO2 Sensor 86 81 88 Respiratory Rate 19 20 18 Blood Pressure 145/79 H Blood Pressure Mean 106 Pulse Oximetry 95 95 96 Oxygen Delivery Method Sepsis Recent Fever Within 48 Hours Sepsis New/Unexplained Change in Mental Status Sepsis Action Taken by Nursing 07/23/19 13:01 07/23/19 13:02 Temperature Temperature Source Pulse Rate 92 H 83 Pulse Rate from SpO2 Sensor 90 86 Respiratory Rate 23 24 Blood Pressure 114/72 Blood Pressure Mean 80 Pulse Oximetry 94 95 Oxygen Delivery Method Sepsis Recent Fever Within 48 Hours Sepsis New/Unexplained Change in Mental Status Sepsis Action Taken by Nursing Laboratory Data Result diagrams: 07/23/19 09:56 07/23/19 18:00 Lab Results 07/23/19 07/23/19 07/23/19 Range/Units 09:56 09:56 09:56 WBC 6.01 (4.8-10.8) K/uL RBC 3.62 L (4.7-6.1) M/uL Hgb 11.1 L (14.0-18.0) g/dL Hct 31.8 L (42-52) % MCV 87.8 (80-100) fL MCH 30.7 (25-34) pg MCHC 34.9 (32-36) g/dL RDW Std Deviation 55.2 H (36.4-46.3) fL RDW Coeff of Adarsh 17.1 H (11.5-14.5) % Plt Count 224 (130-400) K/uL MPV 8.9 (7.4-10.4) fL Immature Gran % (Auto) 1.2 % Neut % (Auto) 83.5 % Lymph % (Auto) 9.3 % Wheeler % (Auto) 5.3 % Eos % (Auto) 0.2 % Baso % (Auto) 0.5 % Immature Gran # (Auto) 0.07 H (0.00-0.02) K/uL Neut # (Auto) 5.02 (1.4-6.5) K/uL Lymph # (Auto) 0.56 L (1.2-3.4) K/uL Wheeler # (Auto) 0.32 (0.11-0.59) K/uL Eos # (Auto) 0.01 (0-0.5) K/uL Baso # (Auto) 0.03 (0-0.2) K/uL Sodium 126 L (136-145) mmol/L Potassium 3.7 (3.5-5.1) mmol/L Chloride 92 L (98-107) mmol/L Carbon Dioxide 28 (21-32) mmol/L Anion Gap 6.0 (3-11) BUN 27 H (7-18) mg/dl Creatinine 1.20 (0.6-1.4) mg/dl Est Cr Clr Drug Dosing Not Reportable Est GFR ( Amer) 69.6 Est GFR (Non-Af Amer) 60.1 BUN/Creatinine Ratio 22.9 H (10-20) Glucose 79 (70-99) mg/dl Osmolality 267 L (280-300) mOsm/kg Lactate (0.4-2.0) mmol/L Uric Acid (2.6-7.2) mg/dl Calcium 8.5 (8.5-10.1) mg/dl Magnesium 1.5 L (1.8-2.4) mg/dl Total Bilirubin 0.5 (0.2-1) mg/dl AST 24 (15-37) U/L ALT 40 (12-78) U/L Alkaline Phosphatase 38 L (45-117) U/L Troponin I 0.055 H* (0-0.045) ng/ml Total Protein 6.1 L (6.4-8.2) gm/dl Albumin 3.1 L (3.4-5.0) gm/dl Globulin 3.0 (2.5-4.0) gm/dl Albumin/Globulin Ratio 1.0 (0.9-2) TSH 0.058 L (0.300-4.500) uIu/ml Free T4 0.52 L (0.8-1.6) ng/dl Urine Color Urine Appearance (Clear) Urine pH (4.5-7.5) Ur Specific [place] (1.000-1.030) Urine Protein (Negative) Urine Glucose (UA) (Negative) Urine Ketones (Negative) Urine Blood (Negative) Urine Nitrite (Negative) Urine Bilirubin (Negative) Urine Urobilinogen (Negative) Ur Leukocyte Esterase (Negative) Urine Osmolality (500-800) mOsm/kg Ur Random Sodium mmol/L Hepatitis C Ab Screen (Neg) 07/23/19 07/23/19 07/23/19 Range/Units 09:56 09:56 09:56 WBC (4.8-10.8) K/uL RBC (4.7-6.1) M/uL Hgb (14.0-18.0) g/dL Hct (42-52) % MCV (80-100) fL MCH (25-34) pg MCHC (32-36) g/dL RDW Std Deviation (36.4-46.3) fL RDW Coeff of Adarsh (11.5-14.5) % Plt Count (130-400) K/uL MPV (7.4-10.4) fL Immature Gran % (Auto) % Neut % (Auto) % Lymph % (Auto) % Wheeler % (Auto) % Eos % (Auto) % Baso % (Auto) % Immature Gran # (Auto) (0.00-0.02) K/uL Neut # (Auto) (1.4-6.5) K/uL Lymph # (Auto) (1.2-3.4) K/uL [place] # (Auto) (0.11-0.59) K/uL Eos # (Auto) (0-0.5) K/uL Baso # (Auto) (0-0.2) K/uL Sodium (136-145) mmol/L Potassium (3.5-5.1) mmol/L Chloride (98-107) mmol/L Carbon Dioxide (21-32) mmol/L Anion Gap (3-11) BUN (7-18) mg/dl Creatinine (0.6-1.4) mg/dl Est Cr Clr Drug Dosing Est GFR ( Amer) Est GFR (Non-Af Amer) BUN/Creatinine Ratio (10-20) Glucose (70-99) mg/dl Osmolality Cancelled (280-300) mOsm/kg Lactate (0.4-2.0) mmol/L Uric Acid 3.8 (2.6-7.2) mg/dl Calcium (8.5-10.1) mg/dl Magnesium (1.8-2.4) mg/dl Total Bilirubin (0.2-1) mg/dl AST (15-37) U/L ALT (12-78) U/L Alkaline Phosphatase (45-117) U/L Troponin I (0-0.045) ng/ml Total Protein (6.4-8.2) gm/dl Albumin (3.4-5.0) gm/dl Globulin (2.5-4.0) gm/dl Albumin/Globulin Ratio (0.9-2) TSH (0.300-4.500) uIu/ml Free T4 (0.8-1.6) ng/dl Urine Color Urine Appearance (Clear) Urine pH (4.5-7.5) Ur Specific [place] (1.000-1.030) Urine Protein (Negative) Urine Glucose (UA) (Negative) Urine Ketones (Negative) Urine Blood (Negative) Urine Nitrite (Negative) Urine Bilirubin (Negative) Urine Urobilinogen (Negative) Ur Leukocyte Esterase (Negative) Urine Osmolality (500-800) mOsm/kg Ur Random Sodium mmol/L Hepatitis C Ab Screen Neg (Neg) 07/23/19 07/23/19 07/23/19 Range/Units 10:35 10:35 10:35 WBC (4.8-10.8) K/uL RBC (4.7-6.1) M/uL Hgb (14.0-18.0) g/dL Hct (42-52) % MCV (80-100) fL MCH (25-34) pg MCHC (32-36) g/dL RDW Std Deviation (36.4-46.3) fL RDW Coeff of Adarsh (11.5-14.5) % Plt Count (130-400) K/uL MPV (7.4-10.4) fL Immature Gran % (Auto) % Neut % (Auto) % Lymph % (Auto) % [place] % (Auto) % Eos % (Auto) % Baso % (Auto) % Immature Gran # (Auto) (0.00-0.02) K/uL Neut # (Auto) (1.4-6.5) K/uL Lymph # (Auto) (1.2-3.4) K/uL [place] # (Auto) (0.11-0.59) K/uL Eos # (Auto) (0-0.5) K/uL Baso # (Auto) (0-0.2) K/uL Sodium (136-145) mmol/L Potassium (3.5-5.1) mmol/L Chloride (98-107) mmol/L Carbon Dioxide (21-32) mmol/L Anion Gap (3-11) BUN (7-18) mg/dl Creatinine (0.6-1.4) mg/dl Est Cr Clr Drug Dosing Est GFR ( Amer) Est GFR (Non-Af Amer) BUN/Creatinine Ratio (10-20) Glucose (70-99) mg/dl Osmolality (280-300) mOsm/kg Lactate (0.4-2.0) mmol/L Uric Acid (2.6-7.2) mg/dl Calcium (8.5-10.1) mg/dl Magnesium (1.8-2.4) mg/dl Total Bilirubin (0.2-1) mg/dl AST (15-37) U/L ALT (12-78) U/L Alkaline Phosphatase (45-117) U/L Troponin I (0-0.045) ng/ml Total Protein (6.4-8.2) gm/dl Albumin (3.4-5.0) gm/dl Globulin (2.5-4.0) gm/dl Albumin/Globulin Ratio (0.9-2) TSH (0.300-4.500) uIu/ml Free T4 (0.8-1.6) ng/dl Urine Color Yellow Urine Appearance Clear (Clear) Urine pH 7.5 (4.5-7.5) Ur Specific [place] 1.013 (1.000-1.030) Urine Protein Negative (Negative) Urine Glucose (UA) Negative (Negative) Urine Ketones Negative (Negative) Urine Blood Negative (Negative) Urine Nitrite Negative (Negative) Urine Bilirubin Negative (Negative) Urine Urobilinogen Negative (Negative) Ur Leukocyte Esterase Negative (Negative) Urine Osmolality 552 (500-800) mOsm/kg Ur Random Sodium 159 mmol/L Hepatitis C Ab Screen (Neg) 07/23/19 Range/Units 11:10 WBC (4.8-10.8) K/uL RBC (4.7-6.1) M/uL Hgb (14.0-18.0) g/dL Hct (42-52) % MCV (80-100) fL MCH (25-34) pg MCHC (32-36) g/dL RDW Std Deviation (36.4-46.3) fL RDW Coeff of Adarsh (11.5-14.5) % Plt Count (130-400) K/uL MPV (7.4-10.4) fL Immature Gran % (Auto) % Neut % (Auto) % Lymph % (Auto) % [place] % (Auto) % Eos % (Auto) % Baso % (Auto) % Immature Gran # (Auto) (0.00-0.02) K/uL Neut # (Auto) (1.4-6.5) K/uL Lymph # (Auto) (1.2-3.4) K/uL [place] # (Auto) (0.11-0.59) K/uL Eos # (Auto) (0-0.5) K/uL Baso # (Auto) (0-0.2) K/uL Sodium (136-145) mmol/L Potassium (3.5-5.1) mmol/L Chloride (98-107) mmol/L Carbon Dioxide (21-32) mmol/L Anion Gap (3-11) BUN (7-18) mg/dl Creatinine (0.6-1.4) mg/dl Est Cr Clr Drug Dosing Est GFR ( Amer) Est GFR (Non-Af Amer) BUN/Creatinine Ratio (10-20) Glucose (70-99) mg/dl Osmolality (280-300) mOsm/kg Lactate 1.4 (0.4-2.0) mmol/L Uric Acid (2.6-7.2) mg/dl Calcium (8.5-10.1) mg/dl Magnesium (1.8-2.4) mg/dl Total Bilirubin (0.2-1) mg/dl AST (15-37) U/L ALT (12-78) U/L Alkaline Phosphatase (45-117) U/L Troponin I (0-0.045) ng/ml Total Protein (6.4-8.2) gm/dl Albumin (3.4-5.0) gm/dl Globulin (2.5-4.0) gm/dl Albumin/Globulin Ratio (0.9-2) TSH (0.300-4.500) uIu/ml Free T4 (0.8-1.6) ng/dl Urine Color Urine Appearance (Clear) Urine pH (4.5-7.5) Ur Specific [place] (1.000-1.030) Urine Protein (Negative) Urine Glucose (UA) (Negative) Urine Ketones (Negative) Urine Blood (Negative) Urine Nitrite (Negative) Urine Bilirubin (Negative) Urine Urobilinogen (Negative) Ur Leukocyte Esterase (Negative) Urine Osmolality (500-800) mOsm/kg Ur Random Sodium mmol/L Hepatitis C Ab Screen (Neg) Administered Medications Enoxaparin Sodium (Lovenox) 40 mg SQ DAILY@1600 [facility] Stop: 08/22/19 16:14 Last Admin: 07/23/19 16:52 Dose: 40 mg Documented by: [id number] Levothyroxine Sodium 25 mcg/ (Syringe) 1.25 mls @ 2 mls/min IV DAILY@0900 [facility] Stop: 08/22/19 15:59 Last Admin: 07/23/19 16:53 Dose: 2 mls/min Documented by: [id number] Ceftriaxone Sodium 1,000 mg/ (Dextrose) 50 mls @ 100 mls/hr IV Q24H [facility]; Protocol Stop: 07/30/19 17:59 Last Infusion: 07/23/19 18:40 Dose: 0 mls/hr Documented by: [id number] Admin: 07/23/19 18:08 Dose: 100 mls/hr Documented by: [id number] Vancomycin HCl 1,750 mg/ (Sodium Chloride) 535 mls @ 200 mls/hr IV NOW ONE Stop: 07/23/19 20:40 Last Admin: 07/23/19 18:08 Dose: 200 mls/hr Documented by: [id number] Discontinued Medications Sodium Chloride (Nss 1000ml) 1,000 mls @ 125 mls/hr IV .Q8H [facility] Stop: 07/23/19 18:14 Last Infusion: 07/23/19 17:42 Dose: 0 mls/hr Documented by: [id number] Infusion: 07/23/19 13:30 Dose: 0 mls/hr Documented by: [id number] Admin: 07/23/19 11:12 Dose: 125 mls/hr Documented by: [id number] Magnesium Sulfate/Dextrose (Magnesium Sulfate / D5w) 1 gm in 100 mls @ 50 mls/hr IV ONE ONE Stop: 07/23/19 13:54 Last Infusion: 07/23/19 14:10 Dose: 0 mls/hr Documented by: [id number] Admin: 07/23/19 12:03 Dose: 50 mls/hr Documented by: [id number] Thiamine HCl 200 mg/ Sodium (Chloride) 52 mls @ 208 mls/hr IV NOW ONE Stop: 07/23/19 13:34 Last Infusion: 07/23/19 14:48 Dose: 0 mls/hr Documented by: [id number] Admin: 07/23/19 14:27 Dose: 208 mls/hr Documented by: [id number] Methylprednisolone 30 mg/ (Syringe) 0.48 mls @ 1.5 mls/min IV DAILY YADY Stop: 08/22/19 13:18 Last Admin: 07/23/19 14:27 Dose: 1.5 mls/min Documented by: [id number] Sodium Chloride (Hypertonic Saline 3%) 50 mls @ 300 mls/hr IV .Q10M ONE Stop: 07/23/19 16:11 Last Infusion: 07/23/19 17:39 Dose: 0 mls/hr Documented by: [id number] Cosigned by: [id number] Admin: 07/23/19 16:52 Dose: 300 mls/hr Documented by: [id number] Cosigned by: [id number] Sodium Chloride (Hypertonic Saline 3%) 50 mls @ 300 mls/hr IV .Q10M ONE Stop: 07/23/19 18:59 Last Infusion: 07/23/19 19:15 Dose: 300 mls/hr Documented by: [id number] Cosigned by: [id number] Admin: 07/23/19 19:04 Dose: 300 mls/hr Documented by: [id number] Cosigned by: [id number] Discharge Plan Visit Data *Final* Discharge Date/Time: 07/23/19 14:40 Chief Complaint: Confusion Stated Complaint: Altered Hx brain surgery/[place] ED Provider: Parker aBtes Discharge Problem: AMS (altered mental status) Patient Disposition: Admitted As Inpatient Discharge Instructions Interventions: ED Discharge Assessment Last Done: 07/23/19 14:40
[2019-07-23 10:28] LABS: Basophils # (auto) 0.03 K/uL (0-0.2); Basophils % (auto) 0.5 %; Eosinophils # (auto) 0.01 K/uL (0-0.5); Eosinophils % (auto) 0.2 %; Hematocrit (blood only) 31.8 % (42-52); Hemoglobin 11.1 g/dL (14.0-18.0); Immature Granulocytes # (auto) 0.07 K/uL (0.00-0.02); Immature Granulocytes % (auto) 1.2 %; Lymphocytes # (auto) 0.56 K/uL (1.2-3.4); Lymphocytes % (auto) 9.3 %; Mean Corpuscular Hemoglobin 30.7 pg (25-34); Mean Corpuscular Hgb Conc 34.9 g/dL (32-36); Mean Corpuscular Volume 87.8 fL (80-100); Mean Platelet Volume 8.9 fL (7.4-10.4); Monocytes # (auto) 0.32 K/uL (0.11-0.59); Monocytes % (auto) 5.3 %; Neutrophils # (auto) 5.02 K/uL (1.4-6.5); Neutrophils % (auto) 83.5 %; Platelet Count 224 K/uL (130-400); RDW Coefficient of Variation 17.1 % (11.5-14.5); RDW Standard Deviation 55.2 fL (36.4-46.3); Red Blood Count 3.62 M/uL (4.7-6.1); White Blood Count 6.01 K/uL (4.8-10.8)
[2019-07-23 10:37] LABS: Albumin Level 3.1 gm/dl (3.4-5.0); BUN Creatinine Ratio 22.9 (10-20); Blood Urea Nitrogen 27 mg/dl (7-18); Calcium 8.5 mg/dl (8.5-10.1); Carbon Dioxide 28 mmol/L (21-32); Chloride 92 mmol/L (98-107); Est GFR (African American) 69.6; Est GFR (Non-African American) 60.1; Glucose 79 mg/dl (70-99); Magnesium 1.5 mg/dl (1.8-2.4); Potassium 3.7 mmol/L (3.5-5.1); Sodium 126 mmol/L (136-145)
--- NOTE | 2019-07-23 10:40 | XRay Report ---
XR chest 1V portable CLINICAL HISTORY: weakness COMPARISON STUDY: Chest CT May 26, 2016. Chest radiograph May 17, 2019. FINDINGS: Right internal jugular Amwsps-m-Bsia is in place. Old deformity of the right clavicle is no kwasi. There is moderate enlargement of the cardiac silhouette. There is pulmonary vascular congestion without evidence for pulmonary edema. No pneumothorax or pleural effusion is noted. There is no lobar consolidation. IMPRESSION: 1. Pulmonary vascular congestion. 2. Moderate enlargement of the cardiac silhouette. ACT 112: Negative or not required by law. Electronically signed by: Miky Garcia M.D. 07/23/2019 10:39 AM
[2019-07-23 10:46] LABS: Appearance Urine Clear (Clear); Bilirubin Urine Negative (Negative); Blood Urine Negative (Negative); Color Urine Yellow; Glucose Urine UA Negative (Negative); Ketones Urine Negative (Negative); Leukocyte Esterase Urine Negative (Negative); Nitrite Urine Negative (Negative); Protein Urine Negative (Negative); Specific Gravity Urine 1.013 (1.000-1.030); Urobilinogen Urine Negative (Negative); pH Urine 7.5 (4.5-7.5)
[2019-07-23 10:57] LABS: Alanine Aminotransferase 40 U/L (12-78); Alkaline Phosphatase 38 U/L (45-117); Aspartate Aminotransferase 24 U/L (15-37); Bilirubin,Total 0.5 mg/dl (0.2-1); Thyroid Stimulating Hormone 0.058 uIu/ml (0.300-4.500); Total Protein 6.1 gm/dl (6.4-8.2); Troponin I 0.055 ng/ml (0-0.045)
--- NOTE | 2019-07-23 10:58 | CT Scan Report ---
CT head/brain wo con CLINICAL HISTORY: 74 years-old Male with AMS. Acutely altered mental status TECHNIQUE: Multiple axial CT images of the head were obtained without contrast. A dose lowering tech nique was utilized adhering to the principles of ALARA. CT DOSE: 614.27 mGy.cm COMPARISON: Head CT 03/19/2019. FINDINGS: No acute intracranial hemorrhage, midline shift, definite intracranial mass, hydrocephalus, territori al ischemia or abnormal extra-axial collection. Postoperative changes from prior resection of the rig ht posterior fossa mass with encephalomalacia and right occipital craniotomy. Age-related involutiona l changes. Mild patchy white matter hypodensities are suggestive of chronic microvascular ischemic di sease. The calvarium is intact. The paranasal sinuses, mastoid air cells, and middle ear cavities are clear . IMPRESSION: 1. No acute intracranial abnormality. 2. Interval right occipital craniotomy with resection of the right posterior fossa mass. ACT 112: Negative or not required by law. The above report was generated using voice recognition software. It may contain grammatical, syntax o r spelling errors. Electronically signed by: Rajiv Richter M.D. 07/23/2019 10:57 AM
[2019-07-23 11:11] LABS: T4 Free Thyroxine 0.52 ng/dl (0.8-1.6)
[2019-07-23] MEDS ORDERED: MAGNESIUM SULFATE / D5W 1 GM/100 ML BAG IV ONE (11:55)
--- NOTE | 2019-07-23 12:36 | Electrocardiogram Report ---
Test Reason : Blood Pressure : / mmHG Vent. Rate : 095 BPM Atrial Rate : 095 BPM P-R Int : 158 ms QRS Dur : 088 ms QT Int : 340 ms P-R-T Axes : 071 065 066 degrees QTc Int : 427 ms Normal sinus rhythm Possible Left atrial enlargement Borderline ECG When compared with ECG of 17-MAY-2019 02:11, No significant change was found Confirmed by Alan Hyatt ([id number]) on 07/23/2019 12:35:52 PM Referred By: REFERRED SELF Confirmed By:Yasmani Hyatt
--- NOTE | 2019-07-23 12:38 | History & Physical Report ---
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 other? He is not taking medications that would cause such. nephrology consult appreciated. Dr Beltran recommends 3% saline 50cc x 1 now with serial sodium levels. Will need MRI brain ultimately to re-eval the occipital region where resection occurred in 03/2019 at [facility]. Cannot rule out acute infection contributing to hyponatremia. Doubt hypothyroid state is contributing to hyponatremia. Has been on tapering steroids since June - random cortisol testing and cosyntropin stim testing would not yield valid results. Appreciate nephrology and critical care consults. (2) Acute metabolic encephalopathy: Most obvious culprit would be the hyponatremia. For that reason he is being given 3% saline this evening. Other possibilities include infectious process (viral, tick-borne, bacteremia, etc), subacute seizures due to encephalomalacia from prior tumor resection, stroke, endocrine abnormalities (hypothyroid state), etc. EEG ordered. Will need MRI brain w/ and w/o contrast. Consider LP to r/o encephalitis/meningitis. Consider tick-borne testing (anaplasmosis, etc). Given low free T4 will start thyroid replacement at 25mcg IV daily (corresponds to 50mcg PO daily). Agree with empiric antibiotics (rocephin/vanco) while awaiting cultures. (3) Melanoma: stage 4. primary site unknown. 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 follows with Dr Bae, [facility]. Most recent PET scan was negative per family. Consult Dr Bae. (4) Nausea and vomiting: x 1 earlier today; none since. follow. (5) Asthma: controlled; w/o exacerbation. when able resume usual inhalers. (6) History of alcohol abuse: sober for several months. in light of altered MS will start high-dose thiamine 200mg IV BID, first dose now. 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 Start synthroid 25mcg IV daily. (8) Hypomagnesemia: replace, repeat level am (9) DVT prophylaxis: lovenox 40mg daily updated during the encounter and also called her several hours after admission with update spoke with daughter, Dr Emma schwarz orthopedic surgeon [facility] in [place], [place]. Phone - [phone]. She expressed concern that patient's current state could be due to endocrinopathy and that he previously improved with higher amounts of steroid (100mg of prednisone?). History of Present Illness Chief Complaint: altered mental status Primary Care Provider: Sarbjit Coffman DO 74yo male with stage 4 melanoma s/p resection of large occipital lobe metastatic lesion in 03/2019 at [facility], followed by XRT and immunotherapy - followed by Dr Jacob Bae with [facility] heme/onc - presents with altered mental status. Has been taking prednisone since middle of June for his cancer due to concerns he may have had residual brain swelling from metastatic lesion. Yesterday patient had a fairly normal day. He and his son went for a 3-mile hike yesterday, ate well, etc. No fevers or chills. Today about 7am his found him near the bed standing but was altered/confused. About 740am his then found him in the bed. Since that time he has been lethargic. No fevers/chills but did have 1 episode of emesis this am when EMS arrived to his home. No diarrhea. No loss of taste or smell. No cough or dyspnea. No skin rashes. has noted a steady decline over the last month with his cognitive ability. He had a MRI brain on June 14 at [facility]. MRI was stable by report. He was subsequently admitted to [facility] for 2 days for mental status changes. They could not find a culprit etiology - they thought maybe he had a reaction to his immune-based therapy. They also had considered endocrinopathy contributing to his mental status issues and therefore his prednisone was increased significantly. Apparently he improved with the larger dose of steroids. Allergies Allergy/AdvReac Type Severity Reaction Status Date / Time scallops Allergy Severe N/V Verified 07/23/19 10:34 diarrhea fluticasone AdvReac Severe Fatigue, Verified 07/23/19 10:34 headache cat dander AdvReac Mild nasal Verified 07/23/19 10:34 congestion dog dander AdvReac Mild nasal Verified 07/23/19 10:34 congestion Home Medications Home Medications Medication Instructions Recorded Confirmed Type montelukast 10 mg tablet 10 mg PO HS #90 tab 04/17/19 07/23/19 Rx albuterol sulfate [Ventolin HFA] 2 puff INHALATION QID PRN 07/23/19 07/23/19 History allopurinol 100 mg PO DAILY 07/23/19 07/23/19 History econazole 1 applic TOPICAL BID 07/23/19 07/23/19 History famotidine 20 mg PO DAILY 07/23/19 07/23/19 History fluticasone furoate-vilanterol 1 inh INHALATION DAILY 07/23/19 07/23/19 History [Breo Ellipta] ondansetron HCl 8 mg PO Q8H PRN 07/23/19 07/23/19 History prednisone 10 mg PO .TAPER DOSE 07/23/19 07/23/19 History prochlorperazine maleate 10 mg PO Q6H PRN 07/23/19 07/23/19 History Past Med/Surg History Medical History Alcohol abuse (Acute) Asthma (Chronic) since childhood Fall (Acute) Head injury (Acute) History of brain tumor (Acute) Removed at [facility] Mar 20, 2019; metastatic lesion from melanoma (4.5cm) followed by XRT History of prostate cancer Melanoma primary site unknown; mets to brain Pneumonia Severe sepsis Visit for suture removal (Acute) Surgical History History of prostatectomy (Acute) ~2014 History of tonsillectomy and adenoidectomy (Acute) Family History Mother COPD (chronic obstructive pulmonary disease) Father Alzheimer disease Sudden sepsis Other No significant family history Social History Preferred Language: Swedish Communication Ability: Effective Cutter Operator Helper Required: No Beliefs That Will Affect Care: None marital status: marital status details: 3 adult children; 2 sons; 1 daughter (physician in [place]) Current Living Situation: Spouse current occupational status: retired 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 [employer] Other Information That Helps Us Care for You: No Feels Safe at Home: Yes Safety Concerns: Feels Safe At This Time Smoking Status: Never smoker Hx Alcohol Use: Yes (none recently) Alcohol type: beer Alcohol Intake Frequency Comment: quit 03/2019 - heavy beer consumer prior to that Hx Substance Use: No Review of Systems Constitutional: + weight loss (20+ pounds ); no fever, no chills, no fatigue and no anorexia Eyes: + worsening vision visual disturbance - for 1-2 weeks but perhaps longer Ear, Nose, Mouth, Throat: no nasal congestion, no sore throat and no dysphagia Respiratory: no cough and no dyspnea Cardiovascular: no chest pain Gastrointestinal: + vomiting; no abdominal pain and no diarrhea/loose stools Genitourinary: no dysuria Musculoskeletal: no joint pain and no myalgia Integumentary: no rash Neurologic: no localized weakness and no loss of sensation Psychiatric: + depression Endocrine: no polyuria no DIABETES Hematologic / Lymphatic: no easy bruising FALL DURING HIKE YESTERDAY; ABRASIONS ON LEG FROM THAT FALL Physical Exam Constitutional: + ill appearing, average body habitus, + altered mental status and + frail appearing; no acute distress briefly opened eyes once to his name being called Eyes: + anicteric sclerae and PERRL; no nystagmus ENMT: Ears: no TM abnormality Mouth: no oral mucosal abnormality and oral mucous membranes not dry Neck: trachea midline, no thyromegaly no signs of trauma to cervical spine Respiratory: normal respiratory effort, lungs clear to auscultation Cardiovascular: Rate/Rhythm: regular rate and regular rhythm Heart Sounds: normal S1 and normal S2; no murmur Vessels: posterior tibial pulses present and dorsalis pedis pulses present; no JVD Extremities: no edema Gastrointestinal (Abdomen): normal bowel sounds, soft, nontender, no hepatosplenomegaly Musculoskeletal: right knee with minimal abrasions and bruising; no deformity Skin: Trauma: + evidence of skin trauma (right knee abrasions ) port - upper chest - clean, no erythema Neurologic: deep tendon reflexes 2+ bilaterally, moves all extremities and + confused (lethargic ) Cranial Nerves: no nystagmus +babinski on left; negative on right Psychiatric: Orientation: + not alert and + not oriented x 3 Lymphatic: no cervical lymphadenopathy Results & Data Results & Data ([facility]) Vital Signs (Past 12 Hours) Vital Signs Temp Pulse Resp BP Pulse Ox 07/23/19 11:31 80 19 131/79 97 07/23/19 11:30 80 20 97 07/23/19 11:12 80 19 96 07/23/19 11:11 78 20 142/86 H 07/23/19 11:09 82 19 95 07/23/19 10:44 85 16 140/79 94 07/23/19 10:14 94 07/23/19 10:02 37.4 C 85 20 145/61 H 98 Laboratory Results Laboratory Results - last 24 hr 07/23/19 07/23/19 07/23/19 09:56 09:56 09:56 WBC 6.01 RBC 3.62 L Hgb 11.1 L Hct 31.8 L MCV 87.8 MCH 30.7 MCHC 34.9 RDW Std Deviation 55.2 H RDW Coeff of Adarsh 17.1 H Plt Count 224 MPV 8.9 Immature Gran % (Auto) 1.2 Neut % (Auto) 83.5 Lymph % (Auto) 9.3 [place] % (Auto) 5.3 Eos % (Auto) 0.2 Baso % (Auto) 0.5 Immature Gran # (Auto) 0.07 H Neut # (Auto) 5.02 Lymph # (Auto) 0.56 L [place] # (Auto) 0.32 Eos # (Auto) 0.01 Baso # (Auto) 0.03 ESR Sodium 126 L Potassium 3.7 Chloride 92 L Carbon Dioxide 28 Anion Gap 6.0 BUN 27 H Creatinine 1.20 Est Cr Clr Drug Dosing Not Reportable Est GFR ( Amer) 69.6 Est GFR (Non-Af Amer) 60.1 BUN/Creatinine Ratio 22.9 H Glucose 79 Osmolality 267 L Lactate Uric Acid Calcium 8.5 Magnesium 1.5 L Total Bilirubin 0.5 AST 24 ALT 40 Alkaline Phosphatase 38 L Total Creatine Kinase Troponin I 0.055 H* C-Reactive Protein Total Protein 6.1 L Albumin 3.1 L Globulin 3.0 Albumin/Globulin Ratio 1.0 Procalcitonin TSH 0.058 L Free T4 0.52 L Urine Color Urine Appearance Urine pH Ur Specific Manti Urine Protein Urine Glucose (UA) Urine Ketones Urine Blood Urine Nitrite Urine Bilirubin Urine Urobilinogen Ur Leukocyte Esterase Urine Osmolality Ur Random Sodium Nasal Screen MRSA (PCR) Urine Opiates Screen Ur Methadone, Qual Urine Barbiturates Ur Phencyclidine (PCP) U Amphetamin/Meth Scrn MDMA (Ecstasy) Screen U Benzodiazepines Scrn Ur Cocaine Metabolite U Marijuana (THC) Screen Hepatitis C Ab Screen 07/23/19 07/23/19 07/23/19 09:56 09:56 09:56 WBC RBC Hgb Hct MCV MCH MCHC RDW Std Deviation RDW Coeff of Adarsh Plt Count MPV Immature Gran % (Auto) Neut % (Auto) Lymph % (Auto) [place] % (Auto) Eos % (Auto) Baso % (Auto) Immature Gran # (Auto) Neut # (Auto) Lymph # (Auto) [place] # (Auto) Eos # (Auto) Baso # (Auto) ESR Sodium Potassium Chloride Carbon Dioxide Anion Gap BUN Creatinine Est Cr Clr Drug Dosing Est GFR ( Amer) Est GFR (Non-Af Amer) BUN/Creatinine Ratio Glucose Osmolality Cancelled Lactate Uric Acid 3.8 Calcium Magnesium Total Bilirubin AST ALT Alkaline Phosphatase Total Creatine Kinase Troponin I C-Reactive Protein Total Protein Albumin Globulin Albumin/Globulin Ratio Procalcitonin TSH Free T4 Urine Color Urine Appearance Urine pH Ur Specific Manti Urine Protein Urine Glucose (UA) Urine Ketones Urine Blood Urine Nitrite Urine Bilirubin Urine Urobilinogen Ur Leukocyte Esterase Urine Osmolality Ur Random Sodium Nasal Screen MRSA (PCR) Urine Opiates Screen Ur Methadone, Qual Urine Barbiturates Ur Phencyclidine (PCP) U Amphetamin/Meth Scrn MDMA (Ecstasy) Screen U Benzodiazepines Scrn Ur Cocaine Metabolite U Marijuana (THC) Screen Hepatitis C Ab Screen Neg 07/23/19 07/23/19 07/23/19 10:35 10:35 10:35 WBC RBC Hgb Hct MCV MCH MCHC RDW Std Deviation RDW Coeff of Adarsh Plt Count MPV Immature Gran % (Auto) Neut % (Auto) Lymph % (Auto) [place] % (Auto) Eos % (Auto) Baso % (Auto) Immature Gran # (Auto) Neut # (Auto) Lymph # (Auto) [place] # (Auto) Eos # (Auto) Baso # (Auto) ESR Sodium Potassium Chloride Carbon Dioxide Anion Gap BUN Creatinine Est Cr Clr Drug Dosing Est GFR ( Amer) Est GFR (Non-Af Amer) BUN/Creatinine Ratio Glucose Osmolality Lactate Uric Acid Calcium Magnesium Total Bilirubin AST ALT Alkaline Phosphatase Total Creatine Kinase Troponin I C-Reactive Protein Total Protein Albumin Globulin Albumin/Globulin Ratio Procalcitonin TSH Free T4 Urine Color Yellow Urine Appearance Clear Urine pH 7.5 Ur Specific Manti 1.013 Urine Protein Negative Urine Glucose (UA) Negative Urine Ketones Negative Urine Blood Negative Urine Nitrite Negative Urine Bilirubin Negative Urine Urobilinogen Negative Ur Leukocyte Esterase Negative Urine Osmolality 552 Ur Random Sodium 159 Nasal Screen MRSA (PCR) Urine Opiates Screen Ur Methadone, Qual Urine Barbiturates Ur Phencyclidine (PCP) U Amphetamin/Meth Scrn MDMA (Ecstasy) Screen U Benzodiazepines Scrn Ur Cocaine Metabolite U Marijuana (THC) Screen Hepatitis C Ab Screen 07/23/19 07/23/19 07/23/19 11:10 14:41 14:41 WBC RBC Hgb Hct MCV MCH MCHC RDW Std Deviation RDW Coeff of Adarsh Plt Count MPV Immature Gran % (Auto) Neut % (Auto) Lymph % (Auto) [place] % (Auto) Eos % (Auto) Baso % (Auto) Immature Gran # (Auto) Neut # (Auto) Lymph # (Auto) [place] # (Auto) Eos # (Auto) Baso # (Auto) ESR 13 Sodium 125 L Potassium 3.6 Chloride 89 L Carbon Dioxide 28 Anion Gap 8.0 BUN 24 H Creatinine 1.18 Est Cr Clr Drug Dosing 56.5 Est GFR ( Amer) 71.0 Est GFR (Non-Af Amer) 61.3 BUN/Creatinine Ratio 20.5 H Glucose 78 Osmolality Lactate 1.4 Uric Acid Calcium 8.4 L Magnesium Total Bilirubin AST ALT Alkaline Phosphatase Total Creatine Kinase 162 Troponin I 0.041 C-Reactive Protein 2.36 H Total Protein Albumin Globulin Albumin/Globulin Ratio Procalcitonin TSH Free T4 Urine Color Urine Appearance Urine pH Ur Specific Manti Urine Protein Urine Glucose (UA) Urine Ketones Urine Blood Urine Nitrite Urine Bilirubin Urine Urobilinogen Ur Leukocyte Esterase Urine Osmolality Ur Random Sodium Nasal Screen MRSA (PCR) Urine Opiates Screen Ur Methadone, Qual Urine Barbiturates Ur Phencyclidine (PCP) U Amphetamin/Meth Scrn MDMA (Ecstasy) Screen U Benzodiazepines Scrn Ur Cocaine Metabolite U Marijuana (THC) Screen Hepatitis C Ab Screen 07/23/19 07/23/19 07/23/19 14:41 18:00 18:30 WBC RBC Hgb Hct MCV MCH MCHC RDW Std Deviation RDW Coeff of Adarsh Plt Count MPV Immature Gran % (Auto) Neut % (Auto) Lymph % (Auto) [place] % (Auto) Eos % (Auto) Baso % (Auto) Immature Gran # (Auto) Neut # (Auto) Lymph # (Auto) [place] # (Auto) Eos # (Auto) Baso # (Auto) ESR Sodium 124 L Potassium 3.7 Chloride 91 L Carbon Dioxide 25 Anion Gap 8.0 BUN 23 H Creatinine 0.93 Est Cr Clr Drug Dosing 71.7 Est GFR ( Amer) 94.7 Est GFR (Non-Af Amer) 81.7 BUN/Creatinine Ratio 24.9 H Glucose 94 Osmolality Lactate Uric Acid Calcium 8.1 L Magnesium Total Bilirubin AST ALT Alkaline Phosphatase Total Creatine Kinase Troponin I C-Reactive Protein Total Protein Albumin Globulin Albumin/Globulin Ratio Procalcitonin 0.78 H TSH Free T4 Urine Color Urine Appearance Urine pH Ur Specific Manti Urine Protein Urine Glucose (UA) Urine Ketones Urine Blood Urine Nitrite Urine Bilirubin Urine Urobilinogen Ur Leukocyte Esterase Urine Osmolality Ur Random Sodium Nasal Screen MRSA (PCR) Urine Opiates Screen Neg Ur Methadone, Qual Neg Urine Barbiturates Neg Ur Phencyclidine (PCP) Neg U Amphetamin/Meth Scrn Neg MDMA (Ecstasy) Screen Neg U Benzodiazepines Scrn Neg Ur Cocaine Metabolite Neg U Marijuana (THC) Screen Neg Hepatitis C Ab Screen 07/23/19 07/23/19 18:30 20:27 WBC RBC Hgb Hct MCV MCH MCHC RDW Std Deviation RDW Coeff of Adarsh Plt Count MPV Immature Gran % (Auto) Neut % (Auto) Lymph % (Auto) [place] % (Auto) Eos % (Auto) Baso % (Auto) Immature Gran # (Auto) Neut # (Auto) Lymph # (Auto) [place] # (Auto) Eos # (Auto) Baso # (Auto) ESR Sodium 125 L Potassium 3.8 Chloride 91 L Carbon Dioxide 25 Anion Gap 8.0 BUN 23 H Creatinine 0.86 Est Cr Clr Drug Dosing 77.5 Est GFR ( Amer) 100.4 Est GFR (Non-Af Amer) 86.6 BUN/Creatinine Ratio 26.5 H Glucose 99 Osmolality Lactate Uric Acid Calcium 7.8 L Magnesium Total Bilirubin AST ALT Alkaline Phosphatase Total Creatine Kinase Troponin I C-Reactive Protein Total Protein Albumin Globulin Albumin/Globulin Ratio Procalcitonin TSH Free T4 Urine Color Urine Appearance Urine pH Ur Specific Manti Urine Protein Urine Glucose (UA) Urine Ketones Urine Blood Urine Nitrite Urine Bilirubin Urine Urobilinogen Ur Leukocyte Esterase Urine Osmolality Ur Random Sodium Nasal Screen MRSA (PCR) Negative Urine Opiates Screen Ur Methadone, Qual Urine Barbiturates Ur Phencyclidine (PCP) U Amphetamin/Meth Scrn MDMA (Ecstasy) Screen U Benzodiazepines Scrn Ur Cocaine Metabolite U Marijuana (THC) Screen Hepatitis C Ab Screen Diagnostic Findings 1. cxr - FINDINGS: Right internal jugular [id number] is in place. Old deformity of the right clavicle is noted. There is moderate enlargement of the cardiac silhouette. There is pulmonary vascular congestion without evidence for pulmonary edema. No pneumothorax or pleural effusion is noted. There is no lobar consolidation. 2. CT head - IMPRESSION: 1. No acute intracranial abnormality. 2. Interval right occipital craniotomy with resection of the right posterior fossa mass. 3. EKG - my reading - NSR, no ST changes Code Status & VTE Plan Code Status full code but he would NOT want prolonged, aggressive care (PEG, indefinite ventilation, etc) with a terminal diagnosis VTE Prophylaxis Plan VTE Prophylaxis will be ordered: Yes PG Care Time/CCT Total # of Minutes Spent Total Time Spent with Patient: Total time spent is greater than 50% in coordination of care (as documented) at patient's floor/unit and/or counseling patient: Coding Level of Care Code 72245 Initial Inpt Care Lvl 3 Diagnoses Hyponatremia E87.1 Acute metabolic encephalopathy G93.41 Melanoma C43.9 Melanoma location: unspecified site Nausea and vomiting R11.2 Vomiting Intractability: non-intractable Vomiting type: unspecified Asthma J45.909 Asthma severity: unspecified severity Asthma persistence: persistent Asthma complication type: uncomplicated History of alcohol abuse F10.11 Abnormal thyroid function test R94.6 Hypomagnesemia E83.42 DVT prophylaxis Z29.9 (1) Melanoma Melanoma location: unspecified site Qualified Code(s): C43.9 - Malignant melanoma of skin, unspecified (2) Nausea and vomiting Vomiting Intractability: non-intractable Vomiting type: unspecified Qualified Code(s): R11.2 - Nausea with vomiting, unspecified (3) Asthma Asthma severity: unspecified severity Asthma persistence: persistent Asthma complication type: uncomplicated Qualified Code(s): J45.909 - Unspecified asthma, uncomplicated
[2019-07-23] MEDS ORDERED: methylPREDNISolone 30 MG in SYRINGE 0 ML IV SCH (13:19)
[2019-07-23] MEDS ORDERED: THIAMINE HCL 200 MG in SODIUM CHLORIDE 0.9% 50 ML IV ONE (13:20)
[2019-07-23 15:12] LABS: Est GFR (Non-African American) 61.3; Potassium 3.6 mmol/L (3.5-5.1)
[2019-07-23 15:13] LABS: BUN Creatinine Ratio 20.5 (10-20); C Reactive Protein 2.36 mg/dl (0-0.29); Calcium 8.4 mg/dl (8.5-10.1); Creatinine Clr Calc Pharmacy 56.5 ml/min
[2019-07-23 15:17] LABS: Troponin I 0.041 ng/ml (0-0.045)
[2019-07-23] MEDS ORDERED: ONDANSETRON INJ 2 MG/ML 2 ML VIAL IV PRN (15:56)
[2019-07-23] MEDS ORDERED: ACETAMINOPHEN 325 MG TAB PO PRN (15:56)
[2019-07-23] MEDS ORDERED: SODIUM CHLORIDE 3 % 50 ML IV ONE ×3 (16:02→21:30)
--- NOTE | 2019-07-23 16:46 | Nephrology Consultation ---
Date of Consultation July 23, 2019 Assessment & Plan (1) Hyponatremia: * Hypoosmolar hyponatremia. Patient is clinically euvolemic to volume contracted. 14:41 sodium value was drawn after saline infusion was completed in ED. Time course of hyponatremia is unknown. Patient however is lethargic. He is unable to take oral medications. Will order 50 cc 3% NaCl and recheck serum sodium in one hour. Goal is to increase sodium 6 - 8 mmol during this 1st 24 hours * TSH is mildly suppressed doubt this is contributing significantly to hyponatremia * No clinical evidence of CHF or cirrhosis * Recommend steroid supplementation. Patient may have an element of adrenal suppression due to recent prednisone therapy * Medication list reviewed - no recent thiazide therapy or other medication that could contribute to hyponatremia (2) Acute metabolic encephalopathy: * Recommend evaluation for potential infectious causes including blood and urine cultures History of Present Illness Reason for Consultation: Hyponatremia Attending Physician: Benny Man History of Present Illness Mr. Lassiter is a 74 year old white male who is seen at the request of Dr. Atkins for evaluation of hyponatremia. Patient is obtunded. Information for the history is obtained from the EMR and is summarized as follows: Mr. Lassiter has stage 4 melanoma and underwent resection of a metastatic lesion 03/29 at [facility] followed by XRT and immunotherapy. His Oncologist is Dr. Jacob Bae. He has since been on a tapering dose of Prednisone. Mr. Lassiter reportedly hiked 3 miles w/ his family yesterday. However this morning he was found by his family to be lethargic and bedbound. ED evaluation revealed CXR without CHF/infiltrate, head CT negative for new acute change. Serum sodium was low at 125 mmol/L w/ urine osmolality 552. Last serum sodium 05/27 was 138 mmol/L. Patient received 750 cc 0.9 NS IV in the ED Allergies Allergy/AdvReac Type Severity Reaction Status Date / Time scallops Allergy Severe N/V Verified 07/23/19 10:34 diarrhea fluticasone AdvReac Severe Fatigue, Verified 07/23/19 10:34 headache cat dander AdvReac Mild nasal Verified 07/23/19 10:34 congestion dog dander AdvReac Mild nasal Verified 07/23/19 10:34 congestion Home Medications Home Medications Medication Instructions Recorded Confirmed Type montelukast 10 mg tablet 10 mg PO HS #90 tab 04/17/19 07/23/19 Rx albuterol sulfate [Ventolin HFA] 2 puff INHALATION QID PRN 07/23/19 07/23/19 History allopurinol 100 mg PO DAILY 07/23/19 07/23/19 History econazole 1 applic TOPICAL BID 07/23/19 07/23/19 History famotidine 20 mg PO DAILY 07/23/19 07/23/19 History fluticasone furoate-vilanterol 1 inh INHALATION DAILY 07/23/19 07/23/19 History [Breo Ellipta] ondansetron HCl 8 mg PO Q8H PRN 07/23/19 07/23/19 History prednisone 10 mg PO .TAPER DOSE 07/23/19 07/23/19 History prochlorperazine maleate 10 mg PO Q6H PRN 07/23/19 07/23/19 History Patient History Medical History Alcohol abuse (Acute) Asthma (Chronic) since childhood Fall (Acute) Head injury (Acute) History of brain tumor (Acute) Removed at [facility] Mar 20, 2019; metastatic lesion from melanoma (4.5cm) followed by XRT History of prostate cancer Melanoma primary site unknown; mets to brain Pneumonia Severe sepsis Visit for suture removal (Acute) Surgical History History of prostatectomy (Acute) ~2014 History of tonsillectomy and adenoidectomy (Acute) Family History Mother COPD (chronic obstructive pulmonary disease) Father Alzheimer disease Sudden sepsis Other No significant family history Social History Preferred Language: [place] Communication Ability: Effective Suede Cleaner Required: No Beliefs That Will Affect Care: None marital status: marital status details: 3 adult children; 2 sons; 1 daughter (physician in [facility] a) Current Living Situation: Spouse current occupational status: retired 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 [employer] Other Information That Helps Us Care for You: No Feels Safe at Home: Yes Safety Concerns: Feels Safe At This Time Smoking Status: Never smoker Hx Alcohol Use: Yes (none recently) Alcohol type: beer Alcohol Intake Frequency Comment: quit 03/2019 - heavy beer consumer prior to that Hx Substance Use: No Review of Systems Review of Systems: Unobtainable due to mental health condition Physical Exam Constitutional: + frail appearing and + lethargic Eyes: PERRL, conjunctivae normal, anicteric sclerae ENMT: Mouth: + dry oral mucous membranes Neck: trachea midline, no thyromegaly Respiratory: no respiratory distress Auscultation: lungs clear to auscultation bilaterally Cardiovascular: Rate/Rhythm: regular rate and regular rhythm Extremities: no edema Gastrointestinal (Abdomen): Percussion/Palpation: abdomen soft; abdomen nontender Musculoskeletal: Extremities: no cyanosis Skin: Trauma: + abrasion (on shins) Neurologic: + obtunded (opens eyes to voice but does not follow commands) Results & Data Vital Signs (Past 12 Hours) Vital Signs Temp Pulse Pulse Resp BP BP Pulse Ox 07/23/19 15:37 37.5 C 90 22 144/75 H 95 07/23/19 14:31 93 H 18 160/82 H 97 07/23/19 14:30 95 H 22 96 07/23/19 14:01 91 H 14 114/79 94 07/23/19 14:00 81 12 07/23/19 13:32 79 20 94 07/23/19 13:31 77 20 130/78 95 07/23/19 13:30 77 19 94 07/23/19 13:02 83 24 95 07/23/19 13:01 92 H 23 114/72 94 07/23/19 13:00 88 18 96 07/23/19 12:32 83 20 95 07/23/19 12:31 85 19 145/79 H 95 07/23/19 12:30 78 21 95 07/23/19 12:01 78 20 128/73 95 07/23/19 12:00 77 22 95 07/23/19 11:32 82 21 96 07/23/19 11:31 80 19 131/79 97 07/23/19 11:30 80 20 97 07/23/19 11:12 80 19 96 07/23/19 11:11 78 20 142/86 H 07/23/19 11:09 82 19 95 07/23/19 10:44 85 16 140/79 94 07/23/19 10:14 94 07/23/19 10:02 37.4 C 85 20 145/61 H 98
[2019-07-23] MEDS: ENOXAPARIN INJ 40 MG/0.4 ML SYR SQ SCH (16:52)
[2019-07-23] MEDS: LEVOTHYROXINE SODIUM 25 MCG in SYRINGE 0 ML IV SCH (16:53)
[2019-07-23] MEDS ORDERED: VANCOMYCIN CONSULT ACTIVE PRN (17:23)
--- NOTE | 2019-07-23 17:27 | Critical Care Consultation ---
Date of Consultation July 23, 2019 Assessment & Plan (1) Acute metabolic encephalopathy: EKG: Normal sinus rhythm no ST-T wave changes appreciated, normal axis. Chest x-ray: Fair inspiratory effort, right costophrenic angle is clean, mild increase in cardiac silhouett. No clear infiltrate appreciated. --Hypoosmolar hypovolemia Volume status of the patient seems to be euvolemic Urine osmolality 552, urine sodium 159, serum osmolality 267, calculated serum osmolality 266, no osmolar gap. Follow-up UDS Patient is at 750 mL of normal saline in the ED Patient will get 3% saline for acute change in mental status 50 cc through the Port-A-Cath, will repeat BMP an hour after that Goal sodium 133 but 3 PM 07/24/2019 If we overcorrect the sodium the next step would be to give D5 water followed by desmopressin if need be. TSH is low along with T4 could be subclinical hypothyroidism. I do not think this is playing a role in his altered mental status. Given the sodium is low normal I doubt this is adrenal insufficiency causing it. Agree with Solu-Medrol IV for the time being. --Acute metabolic encephalopathy Could be secondary to hyponatremia although hyponatremia is not that severely low Acute changes can result into this. CT head was negative except for resection of the right posterior fossa mass We will give 1 dose of vancomycin and Rocephin. Blood culture has been ordered, urine looks clean ESR: 13, CRP 2.3, PCT: 0.78 --History of metastatic melanoma Status post craniotomy and removal of the occipital mass right-sided in March 2019 Patient follows up with Dr. Jacob Guzman --History of asthma Not in exacerbation Continue with inhaled bronchodilator -- Prophylaxis GI: Protonix DVT: IPCs Diet: NPO, Aspiration precautions, keep head of bed elevated to 30 degrees I called and updated regarding the condition of the patient. She said the patient has advanced directive and she is going to fax it to the hospital. I have personally spent 71 minutes of critical care time in the direct management of this patient. This is a life/limb threatening event. This includes time spent evaluating patient, direct bedside care, chart review, placing orders, interpretation of diagnostic studies, discussion with consultants, patient, and family members, as well as other required patient management activities. This time is exclusive of all separately billable procedures, and teaching time and separate from and in addition to any other critical care service time. Please note the above document was generated using voice recognition software. It may contain grammatical, syntax or spelling errors. (2) Hyponatremia: (3) History of brain tumor: (4) Melanoma: History of Present Illness Attending Physician: Benny Man History of Present Illness 74-year-old male with past medical history of metastatic melanoma status post resection of right-sided occipital metastatic lesion in March 2019 at [facility] is brought into the hospital status by his . Patient is a very poor historian History obtained from previous records and H&P. Patient had apparently a normal day yesterday where he went for a hike with son, ate well. There is no documentation of any fever or chills. Today early in the morning patient was found altered lethargic No diarrhea. No cough or dyspnea. Patient evidently had an MRI of the brain on the at [facility] which was stable as per the report. He had similar admission at [facility] for 2 days and the status. They ere unable to find any reason and thought that it could be from immune based therapy that he was getting. He has not gotten any immunotherapy for more than a month. I called at [phone]. There is no documented fever at home. Patient denied any insect bites. He usually uses insect repellent whenever he goes out. Allergies Allergy/AdvReac Type Severity Reaction Status Date / Time scallops Allergy Severe N/V Verified 07/23/19 10:34 diarrhea fluticasone AdvReac Severe Fatigue, Verified 07/23/19 10:34 headache cat dander AdvReac Mild nasal Verified 07/23/19 10:34 congestion dog dander AdvReac Mild nasal Verified 07/23/19 10:34 congestion Home Medications Home Medications Medication Instructions Recorded Confirmed Type montelukast 10 mg tablet 10 mg PO HS #90 tab 04/17/19 07/23/19 Rx albuterol sulfate [Ventolin HFA] 2 puff INHALATION QID PRN 07/23/19 07/23/19 History allopurinol 100 mg PO DAILY 07/23/19 07/23/19 History econazole 1 applic TOPICAL BID 07/23/19 07/23/19 History famotidine 20 mg PO DAILY 07/23/19 07/23/19 History fluticasone furoate-vilanterol 1 inh INHALATION DAILY 07/23/19 07/23/19 History [Breo Ellipta] ondansetron HCl 8 mg PO Q8H PRN 07/23/19 07/23/19 History prednisone 10 mg PO .TAPER DOSE 07/23/19 07/23/19 History prochlorperazine maleate 10 mg PO Q6H PRN 07/23/19 07/23/19 History Patient History Medical History Alcohol abuse (Acute) Asthma (Chronic) since childhood Fall (Acute) Head injury (Acute) History of brain tumor (Acute) Removed at [facility] Mar 20, 2019; metastatic lesion from melanoma (4.5cm) followed by XRT History of prostate cancer Melanoma primary site unknown; mets to brain Pneumonia Severe sepsis Visit for suture removal (Acute) Surgical History History of prostatectomy (Acute) ~2014 History of tonsillectomy and adenoidectomy (Acute) Family History Mother COPD (chronic obstructive pulmonary disease) Father Alzheimer disease Sudden sepsis Other No significant family history Social History Preferred Language: Qatari Communication Ability: Effective Brick Washer Required: No Beliefs That Will Affect Care: None marital status: marital status details: 3 adult children; 2 sons; 1 daughter (physician in [place]) Current Living Situation: Spouse current occupational status: retired 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 [employer] Other Information That Helps Us Care for You: No Feels Safe at Home: Yes Safety Concerns: Feels Safe At This Time Smoking Status: Never smoker Hx Alcohol Use: Yes (none recently) Alcohol type: beer Alcohol Intake Frequency Comment: quit 03/2019 - heavy beer consumer prior to that Hx Substance Use: No Review of Systems Review of Systems: Unobtainable due to cognitive status Physical Exam Physical Exam: Constitutional: No acute distress HEENT: EOMI, PERRLA Respiratory system: Good air entry bilaterally, no wheeze, no rhonchi, no crackles CVS: S1-S2 positive, no murmurs or gallops, tachycardia, right-sided Port-A-Cath Abdomen: Soft, nontender, nondistended, positive bowel sounds x4 Extremities: +2 pulses bilaterally radialis/ dorsalis pedis, no cyanosis, no edema Neuro: Patient is able to move all extremities appropriately, but is not able to answer questions. Very confused, patient has some scratches in the right lower extremity anterior lateral. There is no bite swenson that I can appreciate. No rashes. Psych: Unable to assess G/U: Positive Sanchez Skin: no rashes, warm and dry Lymphatic: no cervical or axillary lymphadenopathy Results & Data Results & [facility] Vital Signs (Past 12 Hours) Vital Signs Temp Pulse Pulse Resp BP BP Pulse Ox 07/23/19 15:37 37.5 C 90 22 144/75 H 95 07/23/19 14:31 93 H 18 160/82 H 97 07/23/19 14:30 95 H 22 96 07/23/19 14:01 91 H 14 114/79 94 07/23/19 14:00 81 12 07/23/19 13:32 79 20 94 07/23/19 13:31 77 20 130/78 95 07/23/19 13:30 77 19 94 07/23/19 13:02 83 24 95 07/23/19 13:01 92 H 23 114/72 94 07/23/19 13:00 88 18 96 07/23/19 12:32 83 20 95 07/23/19 12:31 85 19 145/79 H 95 07/23/19 12:30 78 21 95 07/23/19 12:01 78 20 128/73 95 07/23/19 12:00 77 22 95 07/23/19 11:32 82 21 96 07/23/19 11:31 80 19 131/79 97 07/23/19 11:30 80 20 97 07/23/19 11:12 80 19 96 07/23/19 11:11 78 20 142/86 H 07/23/19 11:09 82 19 95 07/23/19 10:44 85 16 140/79 94 07/23/19 10:14 94 07/23/19 10:02 37.4 C 85 20 145/61 H 98 07/23/19 09:56 07/23/19 14:41 Coding Level of Care Code New Pt Critical Care 1st 30-74 mins Patient Type New Diagnoses Acute metabolic encephalopathy G93.41 Hyponatremia E87.1 History of brain tumor Z87.898 Melanoma C43.9 Time Spent (min) 71
[2019-07-23] MEDS ORDERED: VANCOMYCIN HCL 1,750 MG in SODIUM CHLORIDE 0.9% 500 ML IV ONE (18:00)
[2019-07-23] MEDS ORDERED: cefTRIAXone SODIUM 1,000 MG in DEXTROSE 5% 50 ML IV SCH (18:00)
[2019-07-23 18:32] LABS: BUN Creatinine Ratio 24.9 (10-20); Calcium 8.1 mg/dl (8.5-10.1); Creatinine Clr Calc Pharmacy 71.7 ml/min; Est GFR (African American) 94.7; Est GFR (Non-African American) 81.7; Potassium 3.7 mmol/L (3.5-5.1)
[2019-07-23 18:58] LABS: Amphetamines+Metham, Urine Neg (Neg); Barbiturates, Urine Neg (Neg); Benzodiazepine, Urine Neg (Neg); Cocaine, Urine Neg (Neg); MDMA (Ecstacy), Urine Neg (Neg); Methadone, Urine Neg (Neg); Opiate, Urine Neg (Neg); Phencyclidine, Urine Neg (Neg)
[2019-07-23 21:01] LABS: BUN Creatinine Ratio 26.5 (10-20); Calcium 7.8 mg/dl (8.5-10.1); Creatinine Clr Calc Pharmacy 77.5 ml/min; Est GFR (African American) 100.4; Est GFR (Non-African American) 86.6; Potassium 3.8 mmol/L (3.5-5.1)
[2019-07-23] MEDS: MONTELUKAST SODIUM 10 MG TABLET PO SCH (21:46)
[2019-07-23] MEDS: ECONAZOLE NITRATE 1% CRM 15 GM TUBE TOP SCH (22:13)
[2019-07-24] MEDS ORDERED: ATROPINE SULFATE 0.1 MG/ML 10ML SYR IV ONE (03:39)
[2019-07-24 04:55] LABS: BUN Creatinine Ratio 25.7 (10-20); Calcium 7.6 mg/dl (8.5-10.1); Est GFR (African American) 88.9; Est GFR (Non-African American) 76.7; Potassium 3.9 mmol/L (3.5-5.1)
[2019-07-24 05:50] LABS: Magnesium 1.8 mg/dl (1.8-2.4)
[2019-07-24] MEDS ORDERED: SODIUM CHLORIDE 3 % 100 ML IV ONE ×5 (06:31→20:42)
--- NOTE | 2019-07-24 06:58 | XRay Report ---
XR chest 1V portable HISTORY: 74 years-old Male f/u follow-up study in a patient with unresponsiveness COMPARISON: Chest radiograph 07/23/2019, CTA chest 05/26/2016. TECHNIQUE: Portable AP view of the chest FINDINGS: There is mild enlargement of the cardiac silhouette. Resolution of the previously noted pulmonary vas cular congestion. Calcified plaque the thoracic aortic arch. Right IJ Vafsgi-u-Hypw catheter is uncha nged. There is no pneumothorax, large pleural effusion or overt pulmonary edema. No airspace consolid ation typical for pneumonia. Minimal bibasilar densities favoring atelectasis. Ill-defined 7 mm nodul ar opacity of the lateral left midlung. Multiple healed remote left-sided rib fractures. Degenerative changes of the shoulders and spine. IMPRESSION: 1. Mild cardiomegaly with decreased pulmonary vascular congestion. 2. Indeterminate 7 mm nodular opacity of the lateral left midlung may be secondary to summation densi ty versus pulmonary nodule. ACT 112: Negative or not required by law. The above report was generated using voice recognition software. It may contain grammatical, syntax o r spelling errors. Electronically signed by: Rajiv Richter M.D. 07/24/2019 6:57 AM
--- NOTE | 2019-07-24 07:22 | Electrocardiogram Report ---
Test Reason : Blood Pressure : / mmHG Vent. Rate : 064 BPM Atrial Rate : 064 BPM P-R Int : 162 ms QRS Dur : 088 ms QT Int : 418 ms P-R-T Axes : 070 056 044 degrees QTc Int : 431 ms Normal sinus rhythm Normal ECG When compared with ECG of 23-JUL-2019 10:13, Vent. rate has decreased BY 31 BPM Confirmed by Alan Hyatt ([id number]) on 07/24/2019 7:21:59 AM Referred By: REFERRED SELF Confirmed By:Yasmani Hyatt
--- NOTE | 2019-07-24 08:01 | Electroencephalogram ---
EEG Procedure Note Date of Service July 24, 2019 Start / End Times Start Time: 557 End Time: [address] Man History 74-year-old with history of right occipital melanoma removal now with hyponatremia and acute encephalopathy, question seizures Home Medication List Home Medications Medication Instructions Recorded Confirmed Type montelukast 10 mg tablet 10 mg PO HS #90 tab 04/17/19 07/23/19 Rx albuterol sulfate [Ventolin HFA] 2 puff INHALATION QID PRN 07/23/19 07/23/19 History allopurinol 100 mg PO DAILY 07/23/19 07/23/19 History econazole 1 applic TOPICAL BID 07/23/19 07/23/19 History famotidine 20 mg PO DAILY 07/23/19 07/23/19 History fluticasone furoate-vilanterol 1 inh INHALATION DAILY 07/23/19 07/23/19 History [Breo Ellipta] ondansetron HCl 8 mg PO Q8H PRN 07/23/19 07/23/19 History prednisone 10 mg PO .TAPER DOSE 07/23/19 07/23/19 History prochlorperazine maleate 10 mg PO Q6H PRN 07/23/19 07/23/19 History Inpatient Medication List Econazole Nitrate (Spectazole 1%) 1 appln TOP BID [facility] Stop: 08/22/19 20:59 Last Admin: 07/23/19 22:13 Dose: 1 appln Documented by: [id number] Enoxaparin Sodium (Lovenox) 40 mg SQ DAILY@1600 [facility] Stop: 08/22/19 16:14 Last Admin: 07/23/19 16:52 Dose: 40 mg Documented by: [id number] Levothyroxine Sodium 25 mcg/ (Syringe) 1.25 mls @ 2 mls/min IV DAILY@0900 [facility] Stop: 08/22/19 15:59 Last Admin: 07/23/19 16:53 Dose: 2 mls/min Documented by: [id number] Ceftriaxone Sodium 1,000 mg/ (Dextrose) 50 mls @ 100 mls/hr IV Q24H [facility]; Protocol Stop: 07/30/19 17:59 Last Infusion: 07/23/19 18:40 Dose: 0 mls/hr Documented by: [id number] Admin: 07/23/19 18:08 Dose: 100 mls/hr Documented by: [id number] Montelukast Sodium (Singulair) 10 mg PO HS [facility] Stop: 08/22/19 20:59 Last Admin: 07/23/19 21:46 Dose: Not Given Documented by: [id number] Discontinued Medications Sodium Chloride (Nss 1000ml) 1,000 mls @ 125 mls/hr IV .Q8H [facility] Stop: 07/23/19 18:14 Last Infusion: 07/23/19 17:42 Dose: 0 mls/hr Documented by: [id number] Infusion: 07/23/19 13:30 Dose: 0 mls/hr Documented by: [id number] Admin: 07/23/19 11:12 Dose: 125 mls/hr Documented by: [id number] Magnesium Sulfate/Dextrose (Magnesium Sulfate / D5w) 1 gm in 100 mls @ 50 mls/hr IV ONE ONE Stop: 07/23/19 13:54 Last Infusion: 07/23/19 14:10 Dose: 0 mls/hr Documented by: [id number] Admin: 07/23/19 12:03 Dose: 50 mls/hr Documented by: [id number] Thiamine HCl 200 mg/ Sodium (Chloride) 52 mls @ 208 mls/hr IV NOW ONE Stop: 07/23/19 13:34 Last Infusion: 07/23/19 14:48 Dose: 0 mls/hr Documented by: [id number] Admin: 07/23/19 14:27 Dose: 208 mls/hr Documented by: [id number] Methylprednisolone 30 mg/ (Syringe) 0.48 mls @ 1.5 mls/min IV DAILY [facility] Stop: 08/22/19 13:18 Last Admin: 07/23/19 14:27 Dose: 1.5 mls/min Documented by: [id number] Sodium Chloride (Hypertonic Saline 3%) 50 mls @ 300 mls/hr IV .Q10M ONE Stop: 07/23/19 16:11 Last Infusion: 07/23/19 17:39 Dose: 0 mls/hr Documented by: [id number] Cosigned by: [id number] Admin: 07/23/19 16:52 Dose: 300 mls/hr Documented by: [id number] Cosigned by: [id number] Vancomycin HCl 1,750 mg/ (Sodium Chloride) 535 mls @ 200 mls/hr IV NOW ONE Stop: 07/23/19 20:40 Last Infusion: 07/23/19 20:49 Dose: 200 mls/hr Documented by: [id number] Admin: 07/23/19 18:08 Dose: 200 mls/hr Documented by: [id number] Sodium Chloride (Hypertonic Saline 3%) 50 mls @ 300 mls/hr IV .Q10M ONE Stop: 07/23/19 18:59 Last Infusion: 07/23/19 19:15 Dose: 300 mls/hr Documented by: [id number] Cosigned by: [id number] Admin: 07/23/19 19:04 Dose: 300 mls/hr Documented by: [id number] Cosigned by: [id number] Sodium Chloride (Hypertonic Saline 3%) 50 mls @ 300 mls/hr IV .Q10M ONE; Protocol Stop: 07/23/19 21:39 Last Infusion: 07/23/19 22:25 Dose: 300 mls/hr Documented by: [id number] Cosigned by: [id number] Admin: 07/23/19 22:14 Dose: 300 mls/hr Documented by: [id number] Cosigned by: [id number] Description This is a 21 electrode EEG with a single channel dedicated to limited EKG. The electrodes were placed in accordance with the International 10-20 system. Interpretation The predominant background activity consists of a somewhat irregular 6-7 Hz activity, of up to 40 mV in amplitude,seen symmetrically distributed diffusely bilaterally. This activity has some attenuation with eye opening. Photic stimulation was performed and elicited no change in the background activity and no abnormal responses were seen. Hyperventilation was not performed. A consider amount of muscle artifact activity, and some movement activity, contaminated the recording , hindering interpretation from time to time but not to any significant degree overall.. Throughout this recording, no focal abnormalities or potentially epileptogenic discharges were seen. The low amplitude 6-7 hertz activity was persistent throughout the recording. In summary, this EEG was mildly abnormal in general as noted by some mild low- amplitude slowing seen in all head regions. No specific focal abnormalities were seen and no potentially epileptogenic discharges were detected. Clinical Correlation The abscence of potentially epileptogenic activity does not exclude a seizure disorder, since interictally, EEGs can be normal. The mild generalized low-amplitude slowing is consistent with a mild encephalopathy which could be due to a wide variety of causes, including metabolic. [facility] EEG Procedure Codes Indication for Procedure (1) Acute metabolic encephalopathy: (2) History of brain tumor: Neurology Neurology: [id number] EEG include record awake & drowsy
--- NOTE | 2019-07-24 08:35 | Critical Care Progress Note ---
Date of Service July 24, 2019 Assessment & Plan (1) Acute metabolic encephalopathy: EKG: Normal sinus rhythm no ST-T wave changes appreciated, normal axis. Chest x-ray: Fair inspiratory effort, right costophrenic angle is clean, mild increase in cardiac silhouett. No clear infiltrate appreciated. --Hypoosmolar hypovolemia Volume status of the patient seems to be euvolemic Urine osmolality 552, urine sodium 159, serum osmolality 267, calculated serum osmolality 266, no osmolar gap. UDS negative Goal sodium 133 but 3 PM 07/25/2019 If we overcorrect the sodium the next step would be to give D5 water followed by desmopressin if need be. TSH is low along with T4 could be subclinical hypothyroidism. I do not think this is playing a role in his altered mental status. Given the sodium is low normal I doubt this is adrenal insufficiency causing it. Agree with Solu-Medrol IV for the time being. --Acute metabolic encephalopathy Could be secondary to hyponatremia although hyponatremia is not that severely low Acute changes can result into this. CT head was negative except for resection of the right posterior fossa mass Continue with antibiotics Blood culture has been ordered, urine looks clean EEG 07/24/2019 did not show any seizure-like activity. ESR: 13, CRP 2.3, PCT: 0.78 --Episode of bradycardia overnight Etiology not clear EKG after the episode showed sinus rhythm with no ST-T wave changes Patient is not on any negative inotropic agents --History of metastatic melanoma Status post craniotomy and removal of the occipital mass right-sided in March 2019 Patient follows up with Dr. Jacob Guzman --History of asthma Not in exacerbation Continue with inhaled bronchodilator -- Prophylaxis GI: Protonix DVT: IPCs, Lovenox on hold for possible LP today Diet: NPO, Aspiration precautions, keep head of bed elevated to 30 degrees Plan: In/out: -713 mL, urine output [address] of the head was ordered to make sure we are not missing any stroke given the expressive aphasia. Repeat CT head sick 2019 We will send the patient for lumbar puncture. And send it for bio XOR.MOTORS. Continue with antibiotics for the time being. Patient's sodium is 124. Patient got total of 175 mL of 30% Given the patient is making a lot of urine we will start the patient on normal saline at 100 mL an hour keeping an eye on patient serum sodium. I will repeat urine lites to see urine uric acid and urine sodium. Neurology consult has been placed. We will look for their input. I have personally spent 37 minutes of critical care time in the direct management of this patient. This is a life/limb threatening event. This includes time spent evaluating patient, direct bedside care, chart review, placing orders, interpretation of diagnostic studies, discussion with consultants, patient, and family members, as well as other required patient management activities. This time is exclusive of all separately billable procedures, and teaching time and separate from and in addition to any other critical care service time. Please note the above document was generated using voice recognition software. It may contain grammatical, syntax or spelling errors. (2) Hyponatremia: (3) History of brain tumor: (4) Melanoma: Admission and Anticipated Discharge Date Admission Date: July 23, 2019 Subjective Patient seen and examined at bedside. No acute distress. Overnight patient had an episode of bradycardia. EKG during that time showed sinus rhythm with no ST-T wave changes. Patient did not need any intervention. Patient is more alert than yesterday only knows his name. Seems to have express latrell aphasia. Patient moves all extremities on command. Afebrile Review of Systems Review of Systems: All systems reviewed & are unremarkable except as noted in HPI & below Physical Exam Physical Exam: Constitutional: No acute distress HEENT: EOMI, PERRLA Respiratory system: Good air entry bilaterally, no wheeze, no rhonchi, no crackles CVS: S1-S2 positive, no murmurs or gallops, right-sided Port-A-Cath Abdomen: Soft, nontender, nondistended, positive bowel sounds x4 Extremities: +2 pulses bilaterally radialis/ dorsalis pedis, no , patient has some scratches in the right lower extremity anterior lateral. No bite swenson. No rashes.cyanosis, no edema Neuro: Still confused, moving all extremities on command, more alert than yesterday Psych: Unable to assess G/U: Positive Sanchez Skin: no rashes, warm and dry Lymphatic: no cervical or axillary lymphadenopathy Results & Data Results & Data ([facility]) Vital Signs (Past 12 Hours) Vital Signs Pulse Resp BP Pulse Ox 07/24/19 06:00 71 12 99 07/24/19 05:37 64 12 140/83 99 07/24/19 05:08 74 17 134/79 79 L 07/24/19 05:00 74 13 98 07/24/19 04:37 63 12 119/70 98 07/24/19 04:07 65 13 133/81 100 07/24/19 04:00 68 19 99 07/24/19 03:37 57 L 9 L 131/72 98 07/24/19 03:07 68 7 L 126/72 95 07/24/19 03:00 59 L 11 L 96 07/24/19 02:37 62 10 L 117/71 97 07/24/19 02:07 72 10 L 141/78 H 96 07/24/19 02:00 66 5 L 97 07/24/19 01:37 132/81 96 07/24/19 01:07 62 11 L 151/70 H 96 07/24/19 01:00 63 13 96 07/24/19 00:37 72 25 H 127/88 98 07/24/19 00:07 75 137/88 98 07/24/19 00:00 78 98 07/23/19 23:37 77 140/87 98 07/23/19 23:07 75 128/75 97 07/23/19 23:00 76 98 07/23/19 22:37 79 7 L 129/75 98 07/23/19 22:07 80 11 L 123/71 99 07/23/19 22:00 77 12 98 07/23/19 21:37 67 13 125/67 99 07/23/19 21:07 78 13 140/76 98 07/23/19 21:00 77 14 97 07/23/19 20:37 78 17 135/85 98 07/23/19 09:56 07/24/19 09:11 Coding Level of Care Code Critical Care 1st 30-74 mins Diagnoses Acute metabolic encephalopathy G93.41 Hyponatremia E87.1 History of brain tumor Z87.898 Melanoma C43.9 Melanoma location: unspecified site Time Spent (min) 37 (1) Melanoma Melanoma location: unspecified site Qualified Code(s): C43.9 - Malignant melanoma of skin, unspecified
--- NOTE | 2019-07-24 08:54 | Nephrology Progress Note ---
Date of Service July 24, 2019 Assessment & Plan (1) Hyponatremia: * Hypoosmolar hyponatremia. Patient is clinically euvolemic to volume contracted. Serum sodium remains 125 mmol/L this am. Patient has a calculated Na deficit of ~ 252 mEq. 175 mEq Na has been given since admission via 3% NaCl boluses. Will recheck serum Na at 9 am. Will likely need further administration of 3% NaCl. May also consider low dose loop diuretic w/ next dose to help reduce urinary concentrating ability. Goal is to increase sodium 6 - 8 mmol over 24 hour period * TSH is mildly suppressed doubt this is contributing significantly to hyponatremia * No clinical evidence of CHF or cirrhosis * Recommend steroid supplementation. Patient may have an element of adrenal suppression due to recent prednisone therapy * Medication list reviewed - no recent thiazide therapy or other medication that could contribute to hyponatremia (2) Acute metabolic encephalopathy: * Recommend evaluation for potential infectious causes. Blood cultures are pending. Will send urine for urinalysis, C&S Admission and Anticipated Discharge Date Admission Date: July 23, 2019 Subjective Mr. Lassiter was seen & examined in the ICU this morning. Plan of care was discussed w/ the ICU team. Mr. Lassiter is alert but oriented to self only. He denies GO, fever, angina, or dyspnea. Review of Systems Constitutional: no fever Respiratory: no dyspnea Cardiovascular: no chest pain Gastrointestinal: no abdominal pain Neurologic: + confusion Physical Exam Constitutional: + frail appearing (alert but oriented to self only) Eyes: PERRL, conjunctivae normal, anicteric sclerae ENMT: Mouth: + dry oral mucous membranes Neck: trachea midline, no thyromegaly Respiratory: no respiratory distress Auscultation: lungs clear to auscultation bilaterally Cardiovascular: Rate/Rhythm: regular rate and regular rhythm Extremities: no edema Gastrointestinal (Abdomen): Percussion/Palpation: abdomen soft; abdomen nontender Musculoskeletal: Extremities: no cyanosis Skin: Trauma: + abrasion (on shins) Neurologic: + obtunded (opens eyes to voice but does not follow commands) Results & Data ([facility]) Vital Signs (Past 12 Hours) Vital Signs Pulse Resp BP Pulse Ox 07/24/19 06:00 71 12 99 07/24/19 05:37 64 12 140/83 99 07/24/19 05:08 74 17 134/79 79 L 07/24/19 05:00 74 13 98 07/24/19 04:37 63 12 119/70 98 07/24/19 04:07 65 13 133/81 100 07/24/19 04:00 68 19 99 07/24/19 03:37 57 L 9 L 131/72 98 07/24/19 03:07 68 7 L 126/72 95 07/24/19 03:00 59 L 11 L 96 07/24/19 02:37 62 10 L 117/71 97 07/24/19 02:07 72 10 L 141/78 H 96 07/24/19 02:00 66 5 L 97 07/24/19 01:37 132/81 96 07/24/19 01:07 62 11 L 151/70 H 96 07/24/19 01:00 63 13 96 07/24/19 00:37 72 25 H 127/88 98 07/24/19 00:07 75 137/88 98 07/24/19 00:00 78 98 07/23/19 23:37 77 140/87 98 07/23/19 23:07 75 128/75 97 07/23/19 23:00 76 98 07/23/19 22:37 79 7 L 129/75 98 07/23/19 22:07 80 11 L 123/71 99 07/23/19 22:00 77 12 98 07/23/19 21:37 67 13 125/67 99 07/23/19 21:07 78 13 140/76 98 07/23/19 21:00 77 14 97 PG Care Time/CCT Total # of Minutes Spent Total Time Spent with Patient: Total time spent is greater than 50% in coordination of care (as documented) at patient's floor/unit and/or counseling patient: Coding Level of Care Code 24532 Subseq Hosp Care Lvl 3 Diagnoses Hyponatremia E87.1 Acute metabolic encephalopathy G93.41
--- NOTE | 2019-07-24 09:09 | CT Scan Report ---
CT head/brain wo con CT DOSE: 537.48 mGy.cm HISTORY: Mental status change AMS with expressive aphasia TECHNIQUE: Multiaxial CT images of the head were performed without the use of intravenous contrast. A dose lowering technique was utilized adhering to the principles of ALARA. Comparison: 07/23/2019 Findings: The paranasal sinuses and mastoid air cells are clear. Stable postoperative changes of the right occipital region. Stable craniotomy changes. Underlying post operative several malacia unchanged. Density characteristics the cerebellar as well as cerebral hemispheres otherwise remain unremarkable. There are findings of mild chronic small vessel change consistent with age. Impression: Chronic and postoperative change. No acute process. ACT 112: Negative or not required by law. The above report was generated using voice recognition software. It may contain grammatical, syntax or spelling errors. Electronically signed by: Gm Lim M.D. 07/24/2019 9:07 AM
[2019-07-24] MEDS: FLUTICASONE/VILANTEROL 200/25MCG 14 PUFFS/INHALER INH SCH (09:13)
[2019-07-24] MEDS: ECONAZOLE NITRATE 1% CRM 15 GM TUBE TOP SCH ×2 (09:14→21:09)
[2019-07-24] MEDS: LEVOTHYROXINE SODIUM 25 MCG in SYRINGE 0 ML IV SCH (09:14)
[2019-07-24] MEDS: allopurinoL 100 MG TAB PO SCH (09:15)
[2019-07-24] MEDS: PANTOprazole 40 MG in SYRINGE 0 ML IV SCH (09:16)
[2019-07-24] MEDS: methylPREDNISolone 40 MG in SYRINGE 0 ML IV SCH (09:16)
[2019-07-24 09:43] LABS: BUN Creatinine Ratio 26.2 (10-20); Calcium 7.8 mg/dl (8.5-10.1); Creatinine Clr Calc Pharmacy 68.7 ml/min; Est GFR (Non-African American) 77.7; Potassium 3.9 mmol/L (3.5-5.1)
[2019-07-24] MEDS ORDERED: cefTRIAXone SODIUM 2,000 MG in DEXTROSE 5% 50 ML IV SCH (10:00)
[2019-07-24] MEDS: SODIUM CHLORIDE 0.9% 1000ML 1,000 ML IV SCH (10:53)
[2019-07-24] MEDS ORDERED: VANCOMYCIN HCL 1,250 MG in SODIUM CHLORIDE 0.9% 250 ML IV SCH (12:00)
[2019-07-24] MEDS: FUROSEMIDE 20 MG TAB PO SCH ×2 (12:23→18:25)
[2019-07-24 12:43] LABS: Appearance Urine Clear (Clear); Bacteria Urine Automated Negative (Negative); Bilirubin Urine Negative (Negative); Blood Urine 1+ (Negative); Color Urine Yellow; Epithelial Cell Urine Auto 20-30 /lpf (0-5); Glucose Urine UA Negative (Negative); Ketones Urine 1+ (Negative); Leukocyte Esterase Urine Negative (Negative); Nitrite Urine Negative (Negative); Protein Urine 1+ (Negative); Urobilinogen Urine Negative (Negative)
--- NOTE | 2019-07-24 13:23 | Pharmacy Report ---
Pharmacy Abx Initial Consult - Date of Service July 24, 2019 - Pharmacy Dosing Scope Date of Consult: 07/22 Consultation requested by: Dr. Willingham Pharmacy is consulted to initiate vancomycin IV dosing therapy, order appropriate labs and adjust drug dose/frequency. - Subjective The patient is a 74 year old M admitted on 07/23/19 13:19. - Objective Height: 5 ft 9 in Weight: 70.6 kg Vital Signs (Past 12hrs): Vital Signs Pulse Resp BP Pulse Ox 07/24/19 06:00 71 12 99 07/24/19 05:37 64 12 140/83 99 07/24/19 05:08 74 17 134/79 79 L 07/24/19 05:00 74 13 98 07/24/19 04:37 63 12 119/70 98 07/24/19 04:07 65 13 133/81 100 07/24/19 04:00 68 19 99 07/24/19 03:37 57 L 9 L 131/72 98 07/24/19 03:07 68 7 L 126/72 95 07/24/19 03:00 59 L 11 L 96 07/24/19 02:37 62 10 L 117/71 97 07/24/19 02:07 72 10 L 141/78 H 96 07/24/19 02:00 66 5 L 97 07/24/19 01:37 132/81 96 07/24/19 01:07 62 11 L 151/70 H 96 Lab Results (24hrs): Laboratory Tests (24 Hours) 07/24/19 07/24/19 07/23/19 09:11 04:18 20:27 ESR Creatinine 0.97 0.98 0.86 Est Cr Clr Drug Dosing 68.7 68.0 77.5 Total Creatine Kinase C-Reactive Protein Procalcitonin 07/23/19 07/23/19 07/23/19 18:00 14:41 14:41 ESR Creatinine 0.93 1.18 Est Cr Clr Drug Dosing 71.7 56.5 Total Creatine Kinase 162 C-Reactive Protein 2.36 H Procalcitonin 0.78 H 07/23/19 14:41 ESR 13 Creatinine Est Cr Clr Drug Dosing Total Creatine Kinase C-Reactive Protein Procalcitonin Micro Results: 07/24/19 12:30 Urine Culture - Pending Urine,Indwelling Cath - Assessment & Plan Assessment 74 year old M stage 4 melanoma s/p resection of occipital lobe metastatic lesion 03/2019, XRT and immunotherapy, presenting to ED with altered mental status. On chronic prednisone, patient reportedly normal the day prior to admission, but with acute confusion/lethargy. WBC normal, afebrile. Denies fever/chills,diarrhea. Recent stay at [facility] for similar change in mental status, etiology undetermined, although suspected immune therapy reaction. Patient was hyponatremic on admission and has received several doses of 3% saline. Empirically started on vancomycin/ceftriaxone. Per slot operations director will obtain LP and biofire to rule out meningitis as patient had sudden onset of altered state. Consider adding ampicillin for listeria coverage as patient age >50 until r/o. Plan Vancomycin IV * Estimated PK Parameters: Vd 0.7 L/kg, Thong 0.061 hr-1, t1/2 11.3 hr * Loading dose: 1750 mg (25 mg/kg) * Maintenance dose: 1000 mg IV (14 mg/kg) every 12 hours * Initially dosed at 1250 mg q18H, adjusted for change in renal function * Goal trough level 15-20 mcg/mL * Trough will be ordered if continued >48 hrs Pharmacy will continue to follow and will adjust dose/frequency as necessary. Thank you.
[2019-07-24 13:34] LABS: Potassium Random Urine 66.2 mmol/L; Uric Acid Urine Random 56.1 mg/dl
[2019-07-24 14:35] LABS: BUN Creatinine Ratio 26.8 (10-20); Calcium 7.6 mg/dl (8.5-10.1); Creatinine Clr Calc Pharmacy 70.2 ml/min; Est GFR (African American) 92.3; Est GFR (Non-African American) 79.7; Potassium 3.7 mmol/L (3.5-5.1)
[2019-07-24] MEDS ORDERED: Nursing to Pharmacy Communication SCH (15:30)
--- NOTE | 2019-07-24 15:32 | Fluoroscopy Report ---
FLUOROSCOPIC GUIDED LUMBAR PUNCTURE CLINICAL HISTORY: Change in mental status. PROCEDURE: The risks, benefits, and alternatives to the procedure were discussed with the patient's w shannon who provided informed consent via telephone. Written informed consent was obtained. The patient w as placed prone on the fluoroscopy table. The lower back was prepped and draped in the usual sterile fashion. 1% lidocaine was used for local anesthesia. A 20-gauge spinal needle was inserted into the L 3-L4 interlaminar space, and approximately 10 cc of clear colorless cerebrospinal fluid was removed. A single spot fluoroscopic image was saved. The patient tolerated the procedure well. There were no i mmediate complications. The patient was then transported to the medical treatment unit for further ob servation. Fluoroscopy time: 0.1 minutes. IMPRESSION: Fluoroscopic guided lumbar puncture with removal of approximately 10 cc of cerebrospinal fluid. There were no immediate complications. ACT 112: Negative or not required by law. Electronically signed by: Eduardo Ash M.D. 07/24/2019 3:30 PM
[2019-07-24 17:15] LABS: Cryptococcus neoformans/ga PCR Not Detected (NotDetected); Cytomegalovirus PCR Not Detected (NotDetected); Enterovirus PCR Not Detected (NotDetected); Escherichia coli K1 PCR Not Detected (NotDetected); Haemophilius influenzae PCR Not Detected (NotDetected); Herpes Simplex Virus 1 PCR Not Detected (NotDetected); Herpes Simplex Virus 2 PCR Not Detected (NotDetected); Human Herpes Virus 6 PCR Not Detected (NotDetected); Human Parechovirus PCR Not Detected (NotDetected); Listeria monocytogenes PCR Not Detected (NotDetected); Neisseria meningitidis PCR Not Detected (NotDetected); Streptococcus agalactiae PCR Not Detected (NotDetected); Streptococcus pneumoniae PCR Not Detected (NotDetected); Varicella Zoster Virus PCR Not Detected (NotDetected)
[2019-07-24 18:21] LABS: BUN Creatinine Ratio 23.1 (10-20); Calcium 7.5 mg/dl (8.5-10.1); Creatinine Clr Calc Pharmacy 61.7 ml/min; Est GFR (African American) 79.1; Est GFR (Non-African American) 68.2; Potassium 3.6 mmol/L (3.5-5.1)
[2019-07-24 18:46] LABS: CSF Glucose 51 mg/dl (40-70)
[2019-07-24 19:13] LABS: CSF Chemistry Tube # 1
[2019-07-24 19:21] LABS: Appearance CSF Clear; CSF Count Tube # 3; CSF Xanthrochromic No xanthochromia; Color CSF Colorless
[2019-07-24 19:23] LABS: Red Blood Cell CSF (A) 0 /uL (0-); White Blood Cell CSF (A) 1 /uL (0-5)
[2019-07-24] MEDS: MONTELUKAST SODIUM 10 MG TABLET PO SCH (21:09)
[2019-07-24] MEDS: EUCERIN CR 120 GM JAR EXT SCH (21:11)
--- NOTE | 2019-07-24 22:08 | Hospitalist Progress Note ---
Date of Service July 24, 2019 Assessment & Plan (1) Hyponatremia: Appreciate input from Critical Care Urine osmolality 552, urine sodium 159, serum osmolality 267, calculated serum osmolality 266, no osmolar gap. UDS negative Goal sodium 133 but 3 PM 07/25/2019 He is not taking medications that would cause such. nephrology consult appreciated. Will need MRI brain ultimately to re-eval the occipital region where resection occurred in 03/2019 at [facility]. Cannot rule out acute infection contributing to hyponatremia. Doubt hypothyroid state is contributing to hyponatremia. Has been on tapering steroids since June - random cortisol testing and cosyntropin stim testing would not yield valid results. Appreciate nephrology and critical care consults. (2) Acute metabolic encephalopathy: Doubt main culprit is hyponatremia as it is mild. For that reason he is being given 3% saline this evening. Other possibilities include infectious process (viral, tick-borne, bacteremia, etc), subacute seizures due to encephalomalacia from prior tumor resection, stroke, endocrine abnormalities (hypothyroid state), etc. EEG ordered. Continue with antibiotics Blood culture has been ordered, urine looks clean obtain BIOFIRE. EEG 07/24/2019 did not show any seizure-like activity. Given low free T4 will start thyroid replacement at 25mcg IV daily (corresponds to 50mcg PO daily). Agree with empiric antibiotics (rocephin/vanco) while awaiting cultures. (3) Melanoma: stage 4. primary site unknown. had large metastatic lesion to occipital lobe of brain s/p resection [facility] 03/2019. follows with Dr Bae, [facility]. Most recent PET scan was negative per family. Consult Dr Bae. (4) Nausea and vomiting: x 1 earlier today; none since. follow. (5) Asthma: controlled; w/o exacerbation. when able resume usual inhalers. (6) History of alcohol abuse: sober for several months. 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 Start synthroid 25mcg IV daily. (8) Hypomagnesemia: replace, repeat level am (9) DVT prophylaxis: lovenox 40mg daily Admission and Anticipated Discharge Date Admission Date: July 23, 2019 Subjective Patient has expressive aphasia. Patient has no new complaints at this time. Review of Systems Review of Systems: Unobtainable due to mental health condition Physical Exam Physical Exam: Constitutional: average body habitus, + altered mental status and + frail appearing; no acute distress, awake Eyes: + anicteric sclerae and PERRL; no nystagmus ENMT: Ears: no TM abnormality Mouth: no oral mucosal abnormality and oral mucous membranes not dry Neck: trachea midline, no thyromegaly no signs of trauma to cervical spine Respiratory: normal respiratory effort, lungs clear to auscultation Cardiovascular: Rate/Rhythm: regular rate and regular rhythm Heart Sounds: normal S1 and normal S2; no murmur Vessels: posterior tibial pulses present and dorsalis pedis pulses present; no JVD Extremities: no edema Gastrointestinal (Abdomen): normal bowel sounds, soft, nontender, no hepatosplenomegaly Musculoskeletal: right knee with minimal abrasions and bruising; no deformity Skin: Trauma: + evidence of skin trauma (right knee abrasions ) port - upper chest - clean, no erythema Neurologic: deep tendon reflexes 2+ bilaterally, moves all extremities and + confused (lethargic ) Cranial Nerves: no nystagmus +babinski on left; negative on right Psychiatric: Orientation: alert, oriented to person. Lymphatic: no cervical lymphadenopathy Results & Data Results & Data ([facility]) Vital Signs (Past 12 Hours) Vital Signs Temp Pulse Pulse Resp BP BP Pulse Ox 07/24/19 22:00 37 C 71 18 123/82 95 07/24/19 19:00 81 10 L 07/24/19 18:39 80 20 96 07/24/19 18:30 82 8 L 96 07/24/19 18:08 78 19 141/81 H 96 07/24/19 18:00 79 23 95 07/24/19 17:37 85 18 133/84 95 07/24/19 17:30 83 16 96 07/24/19 17:07 84 16 134/82 96 07/24/19 17:00 07/24/19 16:08 88 13 116/67 96 07/24/19 15:52 37.1 C 81 16 140/88 96 07/24/19 15:38 89 19 136/91 99 07/24/19 15:09 79 17 138/85 95 07/24/19 14:08 82 17 139/80 94 07/24/19 13:38 93 H 25 H 176/86 H 94 07/24/19 13:15 94 H 07/24/19 13:08 85 25 H 146/83 H 94 07/24/19 12:07 82 17 144/87 H 95 07/24/19 11:07 80 17 155/90 H 97 Pulse Ox 07/24/19 22:00 07/24/19 19:00 07/24/19 18:39 07/24/19 18:30 07/24/19 18:08 07/24/19 18:00 07/24/19 17:37 07/24/19 17:30 07/24/19 17:07 07/24/19 17:00 97 07/24/19 16:08 07/24/19 15:52 07/24/19 15:38 07/24/19 15:09 07/24/19 14:08 07/24/19 13:38 07/24/19 13:15 07/24/19 13:08 07/24/19 12:07 07/24/19 11:07 PG Care Time/CCT Total # of Minutes Spent Total Time Spent with Patient: Total time spent is greater than 50% in coordination of care (as documented) at patient's floor/unit and/or counseling patient: Coding Level of Care Code 47386 Subseq Hosp Care Lvl 3 Diagnoses Hyponatremia E87.1 Acute metabolic encephalopathy G93.41 Melanoma C43.9 Melanoma location: unspecified site Nausea and vomiting R11.2 Vomiting Intractability: non-intractable Vomiting type: unspecified Asthma J45.909 Asthma complication type: uncomplicated Asthma persistence: persistent Asthma severity: unspecified severity History of alcohol abuse F10.11 Abnormal thyroid function test R94.6 Hypomagnesemia E83.42 DVT prophylaxis Z29.9 Time Spent (min) 35 (1) Melanoma Melanoma location: unspecified site Qualified Code(s): C43.9 - Malignant melanoma of skin, unspecified (2) Nausea and vomiting Vomiting Intractability: non-intractable Vomiting type: unspecified Qualified Code(s): R11.2 - Nausea with vomiting, unspecified (3) Asthma Asthma complication type: uncomplicated Asthma persistence: persistent Asthma severity: unspecified severity Qualified Code(s): J45.909 - Unspecified asthma, uncomplicated
[2019-07-25] MEDS ORDERED: VANCOMYCIN HCL 1,000 MG in SODIUM CHLORIDE 0.9% 250 ML IV SCH
[2019-07-25 04:44] LABS: Basophils # (auto) 0.01 K/uL (0-0.2); Basophils % (auto) 0.2 %; Hemoglobin 10.4 g/dL (14.0-18.0); Immature Granulocytes # (auto) 0.02 K/uL (0.00-0.02); Immature Granulocytes % (auto) 0.4 %; Lymphocytes # (auto) 0.41 K/uL (1.2-3.4); Lymphocytes % (auto) 8.5 %; Mean Corpuscular Hgb Conc 35.9 g/dL (32-36); Mean Corpuscular Volume 86.6 fL (80-100); Mean Platelet Volume 8.7 fL (7.4-10.4); Monocytes # (auto) 0.27 K/uL (0.11-0.59); Monocytes % (auto) 5.6 %; Neutrophils # (auto) 4.14 K/uL (1.4-6.5); Neutrophils % (auto) 85.3 %; Platelet Count 161 K/uL (130-400); RDW Coefficient of Variation 16.8 % (11.5-14.5); RDW Standard Deviation 53.8 fL (36.4-46.3); Red Blood Count 3.35 M/uL (4.7-6.1); White Blood Count 4.85 K/uL (4.8-10.8)
[2019-07-25 05:11] LABS: Albumin Globulin Ratio 0.9 (0.9-2); Albumin Level 2.7 gm/dl (3.4-5.0); Calcium 7.2 mg/dl (8.5-10.1); Creatinine Clr Calc Pharmacy 65.4 ml/min; Est GFR (African American) 84.7; Est GFR (Non-African American) 73.1; Globulin 2.9 gm/dl (2.5-4.0); Potassium 3.3 mmol/L (3.5-5.1); Total Protein 5.6 gm/dl (6.4-8.2)
[2019-07-25 05:13] LABS: Bilirubin,Total 0.5 mg/dl (0.2-1)
[2019-07-25] MEDS: SODIUM CHLORIDE 0.9% 1000ML 1,000 ML IV SCH ×2 (07:16→07:42)
[2019-07-25] MEDS: FLUTICASONE/VILANTEROL 200/25MCG 14 PUFFS/INHALER INH SCH (07:42)
[2019-07-25] MEDS: EUCERIN CR 120 GM JAR EXT SCH ×2 (07:43→20:09)
[2019-07-25] MEDS: FUROSEMIDE 20 MG TAB PO SCH (07:43)
[2019-07-25] MEDS: ECONAZOLE NITRATE 1% CRM 15 GM TUBE TOP SCH ×2 (07:44→20:08)
[2019-07-25] MEDS: allopurinoL 100 MG TAB PO SCH (07:50)
[2019-07-25] MEDS: methylPREDNISolone 40 MG in SYRINGE 0 ML IV SCH (07:51)
--- NOTE | 2019-07-25 08:03 | Critical Care Progress Note ---
Date of Service July 25, 2019 Assessment & Plan (1) Acute metabolic encephalopathy: --Hypoosmolar hypovolemia Volume status of the patient seems to be euvolemic Urine osmolality 552, urine sodium 159, serum osmolality 267, calculated serum osmolality 266, no osmolar gap. UDS negative Goal sodium 135-137 by 3 PM 07/26/2019 If we overcorrect the sodium the next step would be to give D5 water followed by desmopressin if need be. TSH is low along with T4 could be subclinical hypothyroidism. I do not think this is playing a role in his altered mental status. Given the sodium is low normal I doubt this is adrenal insufficiency causing it. Continue with Solu-Medrol IV for the time being. --Acute metabolic encephalopathy Could be secondary to hyponatremia although hyponatremia is not that severely low Acute changes can result into this. Repeat CT 07/24/2019 -ve for stroke Lumbar puncture bio fire did not show any signs of infection, the only abnormality was very high protein of 152 Blood culture negative to date, urine looks clean EEG 07/24/2019 did not show any seizure-like activity. 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 Jacob Guzman --History of asthma Not in exacerbation Continue with inhaled bronchodilator -- Prophylaxis GI: Protonix DVT: IPCs, Lovenox --Hypokalemia Being replaced Diet: Cardiac diet, Aspiration precautions, keep head of bed elevated to 30 degrees Plan: In/out: - 1500 mL, urine output 3450 mL Start on Lasix 20 mg twice daily by nephrology. Patient got total of 400 mL 3% normal saline today's sodium is 131 which is still within acceptable range. Goal would be to keep the sodium below 135 in the next 24 hours. Repeat BMP at 9 AM. Patient is going for MRI with and without contrast. Contrast usually has high sodium content as well so we will keep that in mind. Lumbar puncture did not show any signs of infection, there was high protein of 152. Such a high level could be due to underlying malignancy. Cytology of the spinal fluid has been ordered DC antibiotics. Clinically and mentally patient seems to be more alert than at the time of presentation. I think he is hemodynamically stable to be sent to a medical floor. I have personally spent 36 minutes of critical care time in the direct management of this patient. This is a life/limb threatening event. This includes time spent evaluating patient, direct bedside care, chart review, placing orders, interpretation of diagnostic studies, discussion with consultants, patient, and family members, as well as other required patient management activities. This time is exclusive of all separately billable procedures, and teaching time and separate from and in addition to any other critical care service time. Please note the above document was generated using voice recognition software. It may contain grammatical, syntax or spelling errors. (2) Hyponatremia: (3) History of brain tumor: (4) Melanoma: Admission and Anticipated Discharge Date Admission Date: July 23, 2019 Subjective Patient seen and examined at bedside. No acute distress, no adverse events overnight. Seems to be more alert. Able to answer simple questions. Denies any shortness of breath, no headache, no nausea, no vomiting. Tolerating diet well. Review of Systems Review of Systems: All systems reviewed & are unremarkable except as noted in HPI & below Physical Exam Physical Exam: Constitutional: No acute distress HEENT: EOMI, PERRLA Respiratory system: Good air entry bilaterally, no wheeze, no rhonchi, no crackles CVS: S1-S2 positive, no murmurs or gallops, right-sided Port-A-Cath Abdomen: Soft, nontender, nondistended, positive bowel sounds x4 Extremities: +2 pulses bilaterally radialis/ dorsalis pedis, no , patient has some scratch swenson in the right lower extremity anterior lateral. No bite swenson. No rashes.cyanosis, no edema Neuro: Awake alert oriented to self only, moves all extremities, good visual acuity Psych: Normal mood and affect G/U: Positive Sanchez Skin: no rashes, warm and dry Lymphatic: no cervical or axillary lymphadenopathy Results & Data Results & Data ([facility]) Vital Signs (Past 12 Hours) Vital Signs Temp Pulse Pulse Resp BP BP Pulse Ox 07/25/19 06:00 69 21 92 07/25/19 05:38 74 14 138/85 93 07/25/19 05:08 71 14 137/85 95 07/25/19 05:00 76 13 92 07/25/19 04:38 79 16 142/93 H 88 L 07/25/19 04:08 75 16 150/98 H 93 07/25/19 04:00 79 12 92 07/25/19 03:38 63 14 123/80 97 07/25/19 03:08 73 17 143/99 H 94 07/25/19 03:00 63 72 7 L 142/93 H 95 07/25/19 02:38 72 21 147/93 H 95 07/25/19 02:08 79 11 L 138/88 95 07/25/19 02:00 78 15 97 07/25/19 01:38 75 18 137/87 94 07/25/19 01:33 72 15 132/87 95 07/25/19 01:08 77 21 132/87 95 07/25/19 01:00 82 16 96 07/25/19 00:38 78 13 137/90 07/25/19 00:08 89 17 150/91 H 95 07/25/19 00:00 87 16 94 07/24/19 23:39 93 H 20 135/88 97 07/24/19 23:08 77 18 143/97 H 97 07/24/19 23:00 85 19 91 07/24/19 22:00 37 C 71 18 123/82 95 07/25/19 04:33 07/25/19 04:33 Coding Level of Care Code Critical Care 1st 30-74 mins Diagnoses Acute metabolic encephalopathy G93.41 Hyponatremia E87.1 History of brain tumor Z87.898 Melanoma C43.9 Melanoma location: unspecified site Time Spent (min) 36 (1) Melanoma Melanoma location: unspecified site Qualified Code(s): C43.9 - Malignant melanoma of skin, unspecified
[2019-07-25] MEDS: POTASSIUM CHLORIDE / WTR 20 MEQ/100 ML PLCT IV SCH ×2 (08:06→10:18)
[2019-07-25 08:44] LABS: Magnesium 1.9 mg/dl (1.8-2.4); Phosphorus 2.6 mg/dl (2.5-4.9)
--- NOTE | 2019-07-25 08:52 | Nephrology Progress Note ---
Date of Service July 25, 2019 Assessment & Plan (1) Hyponatremia: * Hypoosmolar hyponatremia. Patient is clinically euvolemic to volume contracted. Serum sodium improved to 131 mmol/L this am. Will recheck serum Na at 9 am * TSH is mildly suppressed doubt this is contributing significantly to hyponatremia * No clinical evidence of CHF or cirrhosis * Recommend steroid supplementation. Patient may have an element of adrenal suppression due to recent prednisone therapy * Medication list reviewed - no recent thiazide therapy or other medication that could contribute to hyponatremia (2) Acute metabolic encephalopathy: * Recommend evaluation for potential infectious causes. Blood cultures are NGTD. Urinalysis, C&S and CSF cx are pending Admission and Anticipated Discharge Date Admission Date: July 23, 2019 Subjective Mr. Lassiter was seen & examined in the ICU this morning. He is alert but oriented to self only. Mr. Lassiter denies GO, fever, angina, or dyspnea. staff pharmacist reports that he is scheduled for brain MRI later this morning Review of Systems Constitutional: no fever Respiratory: no dyspnea Cardiovascular: no chest pain Gastrointestinal: no abdominal pain Neurologic: + confusion Physical Exam Constitutional: + frail appearing (alert but oriented to self only) Eyes: PERRL, conjunctivae normal, anicteric sclerae ENMT: Mouth: + dry oral mucous membranes Neck: trachea midline, no thyromegaly Respiratory: no respiratory distress Auscultation: lungs clear to auscultation bilaterally Cardiovascular: Rate/Rhythm: regular rate and regular rhythm Extremities: no edema R subclavian a-port in place Gastrointestinal (Abdomen): Percussion/Palpation: abdomen soft; abdomen nontender Musculoskeletal: Extremities: no cyanosis Skin: Trauma: + abrasion (on shins) Neurologic: + obtunded (opens eyes to voice but does not follow commands) Results & Data ([facility]) Vital Signs (Past 12 Hours) Vital Signs Temp Pulse Pulse Resp BP BP Pulse Ox 07/25/19 08:00 36.4 C L 83 13 80 L 07/25/19 07:38 85 12 135/99 95 07/25/19 07:00 73 16 93 07/25/19 06:08 73 18 125/81 93 07/25/19 06:00 69 21 92 07/25/19 05:38 74 14 138/85 93 07/25/19 05:08 71 14 137/85 95 07/25/19 05:00 76 13 92 07/25/19 04:38 79 16 142/93 H 88 L 07/25/19 04:08 75 16 150/98 H 93 07/25/19 04:00 79 12 92 07/25/19 03:38 63 14 123/80 97 07/25/19 03:08 73 17 143/99 H 94 07/25/19 03:00 63 72 7 L 142/93 H 95 07/25/19 02:38 72 21 147/93 H 95 07/25/19 02:08 79 11 L 138/88 95 07/25/19 02:00 78 15 97 07/25/19 01:38 75 18 137/87 94 07/25/19 01:33 72 15 132/87 95 07/25/19 01:08 77 21 132/87 95 07/25/19 01:00 82 16 96 07/25/19 00:38 78 13 137/90 07/25/19 00:08 89 17 150/91 H 95 07/25/19 00:00 87 16 94 07/24/19 23:39 93 H 20 135/88 97 07/24/19 23:08 77 18 143/97 H 97 07/24/19 23:00 85 19 91 07/24/19 22:00 37 C 71 18 123/82 95 Laboratory Results Laboratory Tests 07/25/19 07/25/19 07/25/19 04:33 04:33 Unknown WBC 4.85 Hgb 10.4 L Hct 29.0 L Plt Count 161 Sodium 131 L Potassium 3.3 L Chloride 100 Carbon Dioxide 23 BUN 23 H Creatinine 1.02 Glucose 83 Calcium 7.2 L Phosphorus 2.6 Magnesium 1.9 Albumin 2.7 L 07/22 Blood cultures - no growth to date 07/23 Urine culture - pending 07/23 CSF - GS negative for bacteria/wbc. Cx - pending Diagnostic Findings 07/[address] - no acute findings PG Care Time/CCT Total # of Minutes Spent Total Time Spent with Patient: Total time spent is greater than 50% in coordination of care (as documented) at patient's floor/unit and/or counseling patient: Coding Diagnoses Hyponatremia E87.1 Acute metabolic encephalopathy G93.41
[2019-07-25 09:54] LABS: BUN Creatinine Ratio 16.6 (10-20); Calcium 7.7 mg/dl (8.5-10.1); Creatinine Clr Calc Pharmacy 55.6 ml/min; Est GFR (African American) 69.6; Est GFR (Non-African American) 60.1; Potassium 3.7 mmol/L (3.5-5.1)
[2019-07-25] MEDS ORDERED: SODIUM CHLORIDE 1 GM TABLET PO ONE ×2 (10:10→17:00)
[2019-07-25] MEDS: PANTOprazole 40 MG in SYRINGE 0 ML IV SCH (10:18)
[2019-07-25] MEDS: HEPARIN 100 UNIT/ML 5ML FLUSH FLUSH PRN (14:45)
[2019-07-25] MEDS ORDERED: GADOBUTROL 65ML VIAL IV PRN (16:37)
[2019-07-25] MEDS: ENOXAPARIN INJ 40 MG/0.4 ML SYR SQ SCH (17:20)
--- NOTE | 2019-07-25 17:38 | Magnetic Resonance Report ---
MR brain wo/w con HISTORY: 74 years-old Male altered mental status in patient with melanoma hx acutely altered mental status. History metastatic melanoma. History of prior brain lesion resection March 20, 2019 with r adiation therapy. History of prostate cancer and prior prostatectomy. COMPARISON: Head CT 07/24/2019, brain MRI 06/14/2019 TECHNIQUE: Multiplanar multisequence MRI of the brain was obtained both with and without the use of 7 .0 mL Gadavist FINDINGS: Chief Deputy Court Clerk localizer images demonstrate no gross extracranial abnormality. There is no restricted diffusio n to suggest acute or subacute infarct. Punctate focus of slightly increased diffusion-weighted signa l within the left temporal lobe on image 11 of series 4 is favored be artifactual. Midline structures including the corpus callosum, brainstem, optic chiasm and pineal gland appear unremarkable the sagi ttal T1 series. The pituitary gland measuring up to 11 mm in greatest dimension is prominent in size no cerebellar tonsillar herniation. Degenerative changes of the imaged cervical spine. Postoperative changes of prior occipital craniotomy with partial resection of the right cerebellar hemisphere. Ence phalomalacia and gliosis is noted in the surgical bed with minimal unchanged enhancement. New from prior study there is moderate to extensive T2/FLAIR prolongation of the left greater the rig ht cerebral hemispheres, most pronounced in the frontal and parietal distributions with associated mo derate enhancement of the leptomeninges. Additionally, there is gyral expansion with partial sulcal e ffacement within these distributions, most pronounced within the left frontal lobe, image 12 series 6 . T1 signal is normal without definite intracranial hemorrhage or midline shift. 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 There is no midline shift or hydrocephalus. Major vascular flow voids are patent. Study is mildly motion degraded. Trace mastoid effusions. Mild mucosal thickening of the ethmoid air cells. Prior right-sided lens replacement. Skull and soft tissu es are unremarkable. IMPRESSION: 1. 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 Additionally, there is mild gyral expansion with partial sulca l effacement within these distributions. These findings are nonspecific. Differential considerations would include nonspecific meningitis/encephalitis or leptomeningeal carcinomatosis. Granulomatous con ditions such as neurosarcoidosis also considered. 2. No definite intracranial hemorrhage, midline shift or acute infarct. 3. Postoperative changes of prior right occipital craniotomy with partial resection of the superior r ight cerebellar hemisphere. Gliosis, encephalomalacia and mild likely postoperative enhancement is ag ain noted within this distribution. ACT 112: Negative or not required by law. The above report was generated using voice recognition software. It may contain grammatical, syntax o r spelling errors. Electronically signed by: Rajiv Richter M.D. 07/25/2019 5:37 PM
[2019-07-25] MEDS: MONTELUKAST SODIUM 10 MG TABLET PO SCH (20:07)
--- NOTE | 2019-07-25 23:17 | Hospitalist Progress Note ---
Date of Service July 25, 2019 Assessment & Plan (1) Hyponatremia: Appreciate input from Critical Care Urine osmolality 552, urine sodium 159, serum osmolality 267, calculated serum osmolality 266, no osmolar gap. UDS negative Sodium has been gradually going up, now at 130. He is not taking medications that would cause such. nephrology consult appreciated. will obtain repeat MRI of brain today. LP did not show signs of infection. Improving, will transfer out of ICU. Doubt hypothyroid state is contributing to hyponatremia. Has been on tapering steroids since June - random cortisol testing and cosyntropin stim testing would not yield valid results. Appreciate nephrology and critical care consults. (2) Acute metabolic encephalopathy: Likely secondary to malignancy. Stage 4 melanoma likely yields poor prognosis. Doubt main culprit is hyponatremia as it is mild. For that reason he is being given 3% saline this evening. Other possibilities include infectious process (viral, tick-borne, bacteremia, etc), subacute seizures due to encephalomalacia from prior tumor resection, stroke, endocrine abnormalities (hypothyroid state), etc. EEG ordered. Continue with antibiotics Blood culture has been ordered, urine looks clean obtained BIOFIRE which was negative. EEG 07/24/2019 did not show any seizure-like activity. Given low free T4 will start thyroid replacement at 25mcg IV daily (corresponds to 50mcg PO daily). Antibiotics have been stopped given negative workup. (3) Melanoma: stage 4. primary site unknown. had large metastatic lesion to occipital lobe of brain [place] [facility] [place] Dr Bae, [facility]. Most recent PET scan was negative per family. will discuss with dr. Bae. (4) Nausea and vomiting: x 1 earlier today; none since. follow. (5) Asthma: controlled; w/o exacerbation. when able resume usual inhalers. (6) History of alcohol abuse: sober for several months. 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 Start synthroid 25mcg IV daily. (8) Hypomagnesemia: replace, repeat level am (9) DVT prophylaxis: lovenox 40mg daily Admission and Anticipated Discharge Date Admission Date: July 23, 2019 Subjective Patient is more awake. Patient has no new complaints. He continues to be a poor historian. D/W , he has an appointment with [facility] melanoma specialist. She reports he has been having waxing and waning changes of mental status for the past month. He was recently worked up with Megan Castillo and has been seeing from [facility]. Review of Systems Review of Systems: All systems reviewed & are unremarkable except as noted in HPI & below Physical Exam Physical Exam: Constitutional: average body habitus, + altered mental status; no acute distress, awake, oriented to person, knows Tanmay is president, not oriented to place and time. Eyes: + anicteric sclerae and PERRL; no nystagmus ENMT: Ears: no TM abnormality Mouth: no oral mucosal abnormality and oral mucous membranes not dry Neck: trachea midline, no thyromegaly no signs of trauma to cervical spine Respiratory: normal respiratory effort, lungs clear to auscultation Cardiovascular: Rate/Rhythm: regular rate and regular rhythm Heart Sounds: normal S1 and normal S2; no murmur Vessels: posterior tibial pulses present and dorsalis pedis pulses present; no JVD Extremities: no edema Gastrointestinal (Abdomen): normal bowel sounds, soft, nontender, no hepatosplenomegaly Musculoskeletal: right knee with minimal abrasions and bruising; no deformity Skin: Trauma: + evidence of skin trauma (right knee abrasions ) port - upper chest - clean, no erythema Neurologic: deep tendon reflexes 2+ bilaterally, moves all extremities; Cranial Nerves: no nystagmus +babinski on left; negative on right Psychiatric: Orientation: alert, oriented to person. Lymphatic: no cervical lymphadenopathy Results & Data Results & Data ([facility]) Vital Signs (Past 12 Hours) Vital Signs Temp Pulse Pulse Resp BP BP Pulse Ox 07/25/19 19:30 37.1 C 70 17 104/63 97 07/25/19 15:42 36.9 C 75 18 123/76 96 07/25/19 15:13 73 07/25/19 14:12 72 07/25/19 13:55 36.8 C 76 18 123/75 94 PG Care Time/CCT Total # of Minutes Spent Total Time Spent with Patient: Total time spent is greater than 50% in coordination of care (as documented) at patient's floor/unit and/or counseling patient: Coding Level of Care Code 26177 Subseq Hosp Care Lvl 3 Diagnoses Hyponatremia E87.1 Acute metabolic encephalopathy G93.41 Melanoma C43.9 Melanoma location: unspecified site Nausea and vomiting R11.2 Vomiting Intractability: non-intractable Vomiting type: unspecified Asthma J45.909 Asthma complication type: uncomplicated Asthma persistence: persistent Asthma severity: unspecified severity History of alcohol abuse F10.11 Abnormal thyroid function test R94.6 Hypomagnesemia E83.42 DVT prophylaxis Z29.9 Time Spent (min) 35 (1) Melanoma Melanoma location: unspecified site Qualified Code(s): C43.9 - Malignant melanoma of skin, unspecified (2) Nausea and vomiting Vomiting Intractability: non-intractable Vomiting type: unspecified Qualified Code(s): R11.2 - Nausea with vomiting, unspecified (3) Asthma Asthma complication type: uncomplicated Asthma persistence: persistent Asthma severity: unspecified severity Qualified Code(s): J45.909 - Unspecified asthma, uncomplicated
[2019-07-26] MEDS: HEPARIN 100 UNIT/ML 5ML FLUSH FLUSH PRN ×2 (06:04→14:26)
[2019-07-26 07:10] LABS: BUN Creatinine Ratio 22.9 (10-20); Calcium 7.9 mg/dl (8.5-10.1); Creatinine Clr Calc Pharmacy 55.5 ml/min; Est GFR (African American) 73.3; Est GFR (Non-African American) 63.2; Potassium 3.7 mmol/L (3.5-5.1)
[2019-07-26] MEDS ORDERED: SODIUM CHLORIDE 1 GM TABLET PO ONE (08:31)
--- NOTE | 2019-07-26 09:24 | Neurology Consultation ---
Date of Consultation July 26, 2019 Assessment & Plan (1) Acute metabolic encephalopathy: (2) Abnormal brain MRI: (3) History of brain tumor: (4) Dementia: (5) History of alcohol abuse: Patient had a significant acute encephalopathy likely metabolic. Sodium and magnesium were low (however they were not significantly low by themselves would not be expected to give that significant an acute encephalopathy). 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 He received 3 treatments of radiation (uncertain if whole brain or focused) and 2 rounds of chemotherapy (uncertain of which agents). MRI of the brain showed moderate old small vessel ischemia and on examination he has more of a mild dementia and does not have an encephalopathy currently. He has no focal neurologic signs or meningeal signs. LP did not show any infection but did show inflammation with a protein of 152. The MRI of the brain shows meningeal hyperintensity with some faint enhancement in certain areas of the brain (not diffuse). In addition some underlying cortex was involved as well. I suppose I cannot entirely exclude a mild viral meningitis or meningoencephalitis (however he had/has no signs of encephalitis otherwise). EEG was just mildly slow consistent with encephalopathy and did not show focal signs or potentially epileptogenic discharges, that might be seen with encephalitis. MRI of the brain May 7th did not show this enhancement. After review of this film with Dr. Richter, radiologist, the differential for this pattern could also be consistent with routine post LP phenomena. Meningeal carcinomatosis cannot be excluded but this would be unusual to have developed so quickly after a normal MRI 1 month ago. Post radiation affect could explain this as well (but again, I am not certain if he had whole-brain radiation versus focal radiation). The patient is in the [place] and could of been bitten by a tick. This pattern could be explained by Lyme disease. He has a history of alcohol abuse in the past but quit in late February 2019. Recommendations: 1. Serum Western blot Lyme tests should be obtained. 2. Awaiting CSF Lyme 3. I would like to obtain information as to what type of radiation he received postop and what kind of chemotherapy he received. 4. Increase activity as able, with physical therapy. 5. Patient probably should have a repeat MRI of the brain with and without contrast in 1 month. 6. Follow-up with oncology Overall, I spent a total of 100 minutes with this case including review of records, review of MRI films, discussion of the case with the patient at bedside, and discussion of the case with Dr. Richter radiology and Dr. Membreno including differential diagnosis and treatment options. History of Present Illness Reason for Consultation: A 74-year-old, who I was asked to see the request of Dr. Membreno, for neurologic consultation regarding abnormal MRI of the brain and acute encephalopathy. Requesting Physician: Dr. Membreno Attending Physician: Jann Membreno History of Present Illness Patient has a history of prostate cancer post prostatectomy. He was a heavy alcohol user drinking a considerable amount of beer per day quitting in early March of 2019. He had several weeks of severe nausea vomiting with balance issues and was discovered March 19 to have a right cerebellar mass with associated swelling and edema. He was transferred to [place] and this mass was surgically resected. Patient tells me he had no issues with coordination or walking following this surgery. He received several courses of radiation to the brain (I am not certain how much and in what distribution) and in May of 2019 he received chemotherapy (I am not certain which agents) which gave him fever and chills. He received a 2nd course in June and again had significant side effects apparently. On July 21 he was hiking (he hikes quite a bit) and is always out in the [place]. He did fall (tripped) but did not hurt himself. He did well that day but in the morning of July 22 he was found to be difficult to arouse with decreased speech and confusion. He arrived to the emergency room and his sodium was 126 and magnesium 1.5 (both low but not significantly low). BUN and creatinine were mildly elevated and TSH was low. Free T4 was low as well. Urine drug and alcohol screen was unremarkable and urinalysis was normal. EEG July 23 showed mild generalized slowing with no focal abnormalities or potentially epileptogenic discharges. CT scan of the head showed no acute changes but the postoperative changes with air in the right cerebellar hemisphere. LP was clear and colorless with 0 RBCs, 1 WBC, and a protein of 152. Biofire panel was negative. CSF Lyme is pending. Serum Lyme was not obtained. Repeat CT scan of the head was unchanged. MRI of the brain was obtained on July 24 and showed some leptomeningeal hyperintensity left greater than right side and the cerebellar hemispheres. It Involved some of the underlying parenchyma/cortex as well. There was some faint enhancement in these areas. He has moderate old small vessel ischemic disease. I reviewed this case with Dr. Richter and discussed the etiologic possibilities of this. This morning, the patient is afebrile, sodium 135, calcium 7.9, and magnesium 1.9. He has no complaint of pain or headache (although he had a mild headache earlier today). He has no numbness or weakness in his limbs. Allergies Allergy/AdvReac Type Severity Reaction Status Date / Time scallops Allergy Severe N/V Verified 07/23/19 10:34 diarrhea fluticasone AdvReac Severe Fatigue, Verified 07/23/19 10:34 headache cat dander AdvReac Mild nasal Verified 07/23/19 10:34 congestion dog dander AdvReac Mild nasal Verified 07/23/19 10:34 congestion Home Medications Home Medications Medication Instructions Recorded Confirmed Type montelukast 10 mg tablet 10 mg PO HS #90 tab 04/17/19 07/23/19 Rx albuterol sulfate [Ventolin HFA] 2 puff INHALATION QID PRN 07/23/19 07/23/19 History allopurinol 100 mg PO DAILY 07/23/19 07/23/19 History econazole 1 applic TOPICAL BID 07/23/19 07/23/19 History famotidine 20 mg PO DAILY 07/23/19 07/23/19 History fluticasone furoate-vilanterol 1 inh INHALATION DAILY 07/23/19 07/23/19 History [Breo Ellipta] ondansetron HCl 8 mg PO Q8H PRN 07/23/19 07/23/19 History prednisone 10 mg PO .TAPER DOSE 07/23/19 07/23/19 History prochlorperazine maleate 10 mg PO Q6H PRN 07/23/19 07/23/19 History Patient History Medical History Alcohol abuse (Acute) Asthma (Chronic) since childhood Fall (Acute) Head injury (Acute) History of brain tumor (Acute) Removed at [facility] Mar 20, 2019; metastatic lesion from melanoma (4.5cm) followed by XRT History of prostate cancer Melanoma primary site unknown; mets to brain Pneumonia Severe sepsis Visit for suture removal (Acute) Surgical History History of prostatectomy (Acute) ~2014 History of tonsillectomy and adenoidectomy (Acute) Family History Mother COPD (chronic obstructive pulmonary disease) Father Alzheimer disease Sudden sepsis Other No significant family history Social History Preferred Language: Guine[place] Communication Ability: Impaired Dietitian Teaching Required: No Beliefs That Will Affect Care: None marital status: marital status details: 3 adult children; 2 sons; 1 daughter (physician in [place]) Current Living Situation: Spouse current occupational status: retired 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 [employer] Other Information That Helps Us Care for You: No Feels Safe at Home: Yes Safety Concerns: Feels Safe At This Time Smoking Status: Never smoker Hx Alcohol Use: Yes (none recently) Alcohol type: beer Alcohol Intake Frequency Comment: quit 03/2019 - heavy beer consumer prior to that Hx Substance Use: No Review of Systems Constitutional: + fatigue; no fever and no weakness Eyes: no diplopia, no eye pain and no worsening vision Ear, Nose, Mouth, Throat: no ear pain, no tinnitus, no hearing loss, no dizziness, no hoarseness and no dysphagia Respiratory: no cough and no dyspnea Cardiovascular: no chest pain, no palpitations and no lightheadedness Gastrointestinal: no abdominal pain, no nausea and no vomiting Genitourinary: no dysuria and no urinary incontinence Musculoskeletal: no back pain, no neck pain, no radicular pain, no joint pain and no myalgia Integumentary: no rash and no lesions Neurologic: + gait abnormality and + confusion; no localized weakness, no generalized weakness, no tingling, no numbness, no tremor(s), no abnormal movements, no headache(s), no abnormal speech and no memory loss Psychiatric: no depression, no irritability, no anxiety, no difficulty concentrating, no confusion and no hallucinations Endocrine: no fatigue and no flushing Hematologic / Lymphatic: no easy bleeding and no easy bruising Allergy / Immunological: no urticaria and no problem reported Exam (Neuro) Physical Exam: The patient is right-handed. The patient is awake, alert, and attentive. Speech is normal without any aphasia or dysarthria. he can name objects, repeat phrases, and has normal spontaneous speech. Mentation and thought processes are reasonable to conversation and he is oriented to name, age, month, president, year and where he is now. Attention and concentration are normal. Mood and affect are normal and appropriate. General appearance and grooming are normal. Short and long-term memory are mildly impaired. 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 There are no exudates, hemorrhages, or blood vessel changes seen. Pupils are 3 mm bilaterally and reactive to light. Extraocular eye muscles are intact without nystagmus. Visual acuity and visual cornejo seem normal grossly to confrontation. There are no deficits to sensation in the face in all 3 distributions of the fifth cranial nerve bilaterally. Corneal reflexes are positive bilaterally. Facial strength and symmetry was normal bilaterally. Hearing seems normal to whisper and finger rub bilaterally. Palate moves well without asymmetry. There is normal sternocleidomastoid and trapezius (shoulder shrug) strength bilaterally. Tongue is midline with good strength bilaterally. Neck has a full range of motion without discomfort. There are no cervical bruits bilaterally. There are no cranial or ocular bruits. Heart is without murmur. There is a regular rhythm and rate. Cervical, thoracic, and lumbar spine are nontender to palpation. Gait narrow based slow and cautious. Turns are slow and he needs the assistance of 1. Stance sitting at the edge of the bed with his feet dangling is normal. With outstretched arms there is no drift. There are no resting, postural, or action tremors. There is no ataxia with finger to nose testing. There is good facility in the hands. No other abnormal involuntary movements are noted. Motor strength is 5/5 diffusely in the arms bilaterally including deltoids, biceps, triceps, brachioradialis, wrist flexors and extensors, emissions technician, and intrinsic hand muscles. Motor strength is 5/5 diffusely in the legs bilaterally including hip flexors, quadriceps, hamstrings, gastrocnemius, tibialis anterior, tibialis posterior, and Peroneii muscles. Toe extensors are normal and there is good bulk in the extensor digitorum brevis muscles bilaterally. The limbs have good tone without rigidity or spasticity. There is no atrophy noted in the muscles. Muscle bulk is normal, there is no tenderness to palpation, no myotonia to percussion, and no fasciculations seen. Sensory examination is intact to touch and pin throughout all 4 limbs diffusely. Reflexes are 1/4 in the biceps, triceps, brachioradialis, quadriceps, and Achilles tendons bilaterally. There is no clonus bilaterally. Toes are downgoing with plantar stimulation bilaterally. Peripheral pulses are present and of normal quality distally in all 4 limbs. There is no peripheral edema noted in the limbs. Results & Data ([facility]) Vital Signs (Past 12 Hours) Vital Signs Temp Pulse Pulse Resp BP Pulse Ox 07/26/19 07:22 36.9 C 64 61 18 115/75 95 07/26/19 03:30 36.7 C 62 20 129/77 97 07/26/19 00:19 61 07/26/19 00:00 36.8 C 60 20 113/74 97 Diagnostic Findings MR brain wo/w con HISTORY: 74 years-old Male altered mental status in patient with melanoma hx acutely altered mental status. History metastatic melanoma. History of prior brain lesion resection March 20, 2019 with radiation therapy. History of prostate cancer and prior prostatectomy. COMPARISON: Head CT 07/24/2019, brain MRI 06/14/2019 TECHNIQUE: Multiplanar multisequence MRI of the brain was obtained both with and without the use of 7.0 mL Gadavist FINDINGS: Production Engine Repairer localizer images demonstrate no gross extracranial abnormality. There is no restricted diffusion to suggest acute or subacute infarct. Punctate focus of slightly increased diffusion-weighted signal within the left temporal lobe on image 11 of series 4 is favored be artifactual. Midline structures including the corpus callosum, brainstem, optic chiasm and pineal gland appear unremarkable the sagittal T1 series. The pituitary gland measuring up to 11 mm in greatest dimension is prominent in size no cerebellar tonsillar herniation. Degenerative changes of the imaged cervical spine. Postoperative changes of prior occipital craniotomy with partial resection of the right cerebellar hemisphere. Encephalomalacia and gliosis is noted in the surgical bed with minimal unchanged enhancement. New from prior study there is moderate to extensive T2/FLAIR prolongation of the left greater the right cerebral hemispheres, most pronounced in the frontal and parietal distributions with associated moderate enhancement of the leptomeninges. Additionally, there is gyral expansion with partial sulcal effacement within these distributions, most pronounced within the left frontal lobe, image 12 series 6. T1 signal is normal without definite intracranial hemorrhage or midline shift. Scattered mild to moderate T2/FLAIR hyperintensities throughout the white matter redemonstrated suggestive of probable chronic microvascular ischemic disease. There is no midline shift or hydrocephalus. Major vascular flow voids are patent. Study is mildly motion degraded. Trace mastoid effusions. Mild mucosal thickening of the ethmoid air cells. Prior right-sided lens replacement. Skull and soft tissues are unremarkable. IMPRESSION: 1. 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 Additionally, there is mild gyral expansion with partial sulcal effacement within these dist ributions. These findings are nonspecific. Differential considerations would include nonspecific meningitis/encephalitis or leptomeningeal carcinomatosis. Granulomatous conditions such as neurosarcoidosis also considered. 2. No definite intracranial hemorrhage, midline shift or acute infarct. 3. Postoperative changes of prior right occipital craniotomy with partial resection of the superior right cerebellar hemisphere. Gliosis, encephalomalacia and mild likely postoperative enhancement is again noted within this distribution. ACT 112: Negative or not required by law. The above report was generated using voice recognition software. It may contain grammatical, syntax or spelling errors. Electronically signed by: Rajiv Richter M.D. 07/25/2019 5:37 PM PG Care Time/CCT Total # of Minutes Spent Total Time Spent with Patient: Total time spent is greater than 50% in coordination of care (as documented) at patient's floor/unit and/or counseling patient: Coding Level of Care Code 10220 Initial Inpt Care Lvl 3 Diagnoses Acute metabolic encephalopathy G93.41 Abnormal brain MRI R90.89 History of brain tumor Z87.898 Dementia F03.90 History of alcohol abuse F10.11 Time Spent (min) 100 Comment Add [id number] to the [id number]
--- NOTE | 2019-07-26 09:40 | Nephrology Progress Note ---
Date of Service July 26, 2019 Assessment & Plan (1) Hyponatremia: * Hypoosmolar hyponatremia. Patient is clinically euvolemic. Serum sodium improved to 135 mmol/L this am. Will provide one dose of NaCl 2g po x1 this am and continue to monitor serum sodium * TSH is mildly suppressed doubt this is contributing significantly to hyponatremia * No clinical evidence of CHF or cirrhosis * Recommend steroid supplementation. Patient may have an element of adrenal suppression due to recent prednisone therapy * Medication list reviewed - no recent thiazide therapy or other medication that could contribute to hyponatremia (2) Acute metabolic encephalopathy: * Infection evaluation has been negative: Blood cultures, urinalysis, urine C&S and CSF cx are negative * Brain MRI shows leptomeningeal enhancement. LP was negative for infection. Ddx includes leptomeningeal carcinomatosis * Consider consultation w/ Oncology, Neurology/Neurosurgery and discussion w/ patient and family about goals of care Admission and Anticipated Discharge Date Admission Date: July 23, 2019 Subjective Mr. Lassiter was seen & examined in his hospital room this morning. He is alert and oriented to self, place and month. Mr. Lassiter complains of mild GO and weakness. He denies fever, angina, or dyspnea. Physical Exam Constitutional: + frail appearing (alert but oriented to self only) Eyes: PERRL, conjunctivae normal, anicteric sclerae ENMT: Mouth: + dry oral mucous membranes Neck: trachea midline, no thyromegaly Respiratory: no respiratory distress Auscultation: lungs clear to auscultation bilaterally Cardiovascular: Rate/Rhythm: regular rate and regular rhythm Extremities: no edema Gastrointestinal (Abdomen): Percussion/Palpation: abdomen soft; abdomen nontender Musculoskeletal: Extremities: no cyanosis Skin: Trauma: + abrasion (on shins) Neurologic: + obtunded (opens eyes to voice but does not follow commands) Results & Data ([facility]) Vital Signs (Past 12 Hours) Vital Signs Temp Pulse Pulse Resp BP Pulse Ox 07/26/19 07:22 36.9 C 64 61 18 115/75 95 07/26/19 03:30 36.7 C 62 20 129/77 97 07/26/19 00:19 61 07/26/19 00:00 36.8 C 60 20 113/74 97 Laboratory Results Laboratory Tests 07/26/19 07/26/19 05:30 06:04 Sodium 135 L Potassium 3.7 Chloride 104 Carbon Dioxide 25 BUN 26 H Creatinine 1.15 Urine Osmolality 733 Diagnostic Findings Brain MRI 07/25/19: 1. 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 Additionally, there is mild gyral expansion with partial sulcal effacement within these distributions. These findings are nonspecific. Differential considerations would include nonspecific meningitis/encephalitis or leptomeningeal carcinomatosis. Granulomatous conditions such as neurosarcoidosis also considered. 2. No definite intracranial hemorrhage, midline shift or acute infarct. 3. Postoperative changes of prior right occipital craniotomy with partial resection of the superior right cerebellar hemisphere. Gliosis, encephalomalacia and mild likely postoperative enhancement is again noted within this distribution. PG Care Time/CCT Total # of Minutes Spent Total Time Spent with Patient: Total time spent is greater than 50% in coordination of care (as documented) at patient's floor/unit and/or counseling patient: Coding Level of Care Code 99964 Subseq Hosp Care Lvl 3 Diagnoses Hyponatremia E87.1 Acute metabolic encephalopathy G93.41
[2019-07-26] MEDS: FLUTICASONE/VILANTEROL 200/25MCG 14 PUFFS/INHALER INH SCH (10:36)
[2019-07-26] MEDS: ECONAZOLE NITRATE 1% CRM 15 GM TUBE TOP SCH ×2 (10:37→20:43)
[2019-07-26] MEDS: EUCERIN CR 120 GM JAR EXT SCH ×2 (10:38→20:42)
[2019-07-26] MEDS: methylPREDNISolone 40 MG in SYRINGE 0 ML IV SCH (10:38)
[2019-07-26] MEDS: allopurinoL 100 MG TAB PO SCH (10:39)
[2019-07-26] MEDS: PANTOprazole 40 MG in SYRINGE 0 ML IV SCH (12:00)
[2019-07-26 14:40] LABS: Basophils # (auto) 0.03 K/uL (0-0.2); Basophils % (auto) 0.6 %; Eosinophils # (auto) 0.02 K/uL (0-0.5); Eosinophils % (auto) 0.4 %; Hematocrit (blood only) 30.5 % (42-52); Hemoglobin 10.3 g/dL (14.0-18.0); Immature Granulocytes # (auto) 0.01 K/uL (0.00-0.02); Immature Granulocytes % (auto) 0.2 %; Lymphocytes # (auto) 0.64 K/uL (1.2-3.4); Lymphocytes % (auto) 12.9 %; Mean Corpuscular Hgb Conc 33.8 g/dL (32-36); Mean Corpuscular Volume 88.9 fL (80-100); Mean Platelet Volume 9.3 fL (7.4-10.4); Monocytes # (auto) 0.36 K/uL (0.11-0.59); Monocytes % (auto) 7.2 %; Neutrophils # (auto) 3.91 K/uL (1.4-6.5); Neutrophils % (auto) 78.7 %; Platelet Count 176 K/uL (130-400); RDW Coefficient of Variation 17.6 % (11.5-14.5); RDW Standard Deviation 57.7 fL (36.4-46.3); Red Blood Count 3.43 M/uL (4.7-6.1); White Blood Count 4.97 K/uL (4.8-10.8)
[2019-07-26 14:59] LABS: BUN Creatinine Ratio 18.7 (10-20); Creatinine Clr Calc Pharmacy 46.3 ml/min; Est GFR (African American) 58.8; Est GFR (Non-African American) 50.7; Potassium 4.1 mmol/L (3.5-5.1)
[2019-07-26 15:44] LABS: Lyme Ab IgG w/WB Rflx Negative (Negative); Lyme Ab IgM w/WB Rflx Negative (Negative)
[2019-07-26] MEDS: ENOXAPARIN INJ 40 MG/0.4 ML SYR SQ SCH (16:59)
[2019-07-26] MEDS: MONTELUKAST SODIUM 10 MG TABLET PO SCH (20:41)
--- NOTE | 2019-07-26 22:34 | Hospitalist Progress Note ---
Date of Service July 26, 2019 Assessment & Plan (1) Hyponatremia: Resolved. Urine osmolality 552, urine sodium 159, serum osmolality 267, calculated serum osmolality 266, no osmolar gap. UDS negative Sodium has been gradually going up, now at 135. He is not taking medications that would cause such. nephrology consult appreciated. MRI showed non specific findings: LP did not show signs of infection. Doubt hypothyroid state is contributing to hyponatremia. Has been on tapering steroids since June - random cortisol testing and cosyntropin stim testing would not yield valid results. Appreciate nephrology and critical care consults. (2) Acute metabolic encephalopathy: Likely secondary to malignancy. Stage 4 melanoma likely yields poor prognosis. Doubt main culprit is hyponatremia as it is mild. For that reason he is being given 3% saline this evening. Other possibilities include infectious process (viral, tick-borne, bacteremia, etc), subacute seizures due to encephalomalacia from prior tumor resection, stroke, endocrine abnormalities (hypothyroid state), etc. EEG ordered. ANTIBIOTICS HAVE BEEN STOPPED Blood culture has been ordered, urine looks clean obtained BIOFIRE which was negative. EEG 07/24/2019 did not show any seizure-like activity. Given low free T4 will start thyroid replacement at 25mcg IV daily (corresponds to 50mcg PO daily). Antibiotics have been stopped given negative workup. Awaiting lyme CSF. obtained BUrn cd order for imaging as patient is going to melanoma clinic on Tuesday. (3) Melanoma: stage 4. primary site unknown. 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 follows with Dr Bae, [facility]. Most recent PET scan was negative per family. will discuss with dr. Bae. (4) Nausea and vomiting: x 1 earlier today; none since. follow. (5) Asthma: controlled; w/o exacerbation. when able resume usual inhalers. (6) History of alcohol abuse: sober for several months. 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 Start synthroid 25mcg IV daily. (8) Hypomagnesemia: replace, repeat level am (9) DVT prophylaxis: lovenox 40mg daily Admission and Anticipated Discharge Date Admission Date: July 23, 2019 Subjective 74 yo male reports feeling better today. He is aware he is in the hospital. He knows the month and the year, he knows his birthdate. He does not appear to be struggling to find words. I updated his on the phone. Review of Systems Review of Systems: All systems reviewed & are unremarkable except as noted in HPI & below Physical Exam Physical Exam: Constitutional: average body habitus, no acute distress, awake, oriented to person, place and time, knows Tanmay is president Eyes: + anicteric sclerae and PERRL; no nystagmus ENMT: Ears: no TM abnormality Mouth: no oral mucosal abnormality and oral mucous membranes not dry Neck: trachea midline, no thyromegaly no signs of trauma to cervical spine Respiratory: normal respiratory effort, lungs clear to auscultation Cardiovascular: Rate/Rhythm: regular rate and regular rhythm Heart Sounds: normal S1 and normal S2; no murmur Vessels: posterior tibial pulses present and dorsalis pedis pulses present; no JVD Extremities: no edema Gastrointestinal (Abdomen): normal bowel sounds, soft, nontender, no hepatosplenomegaly Musculoskeletal: right knee with minimal abrasions and bruising; no deformity Skin: Trauma: + evidence of skin trauma (right knee abrasions ) port - upper chest - clean, no erythema Neurologic: deep tendon reflexes 2+ bilaterally, moves all extremities; Cranial Nerves: no nystagmus +babinski on left; negative on right Psychiatric: Orientation: alert, oriented to person. Lymphatic: no cervical lymphadenopathy Results & Data Results & Data ([facility]) Vital Signs (Past 12 Hours) Vital Signs Temp Pulse Pulse Resp BP BP Pulse Ox 07/26/19 19:34 36.4 C L 68 18 126/80 96 07/26/19 16:04 37.1 C 70 17 124/74 95 07/26/19 16:00 76 07/26/19 11:21 36.6 C 68 18 124/78 96 PG Care Time/CCT Total # of Minutes Spent Total Time Spent with Patient: Total time spent is greater than 50% in coordination of care (as documented) at patient's floor/unit and/or counseling patient: Coding Level of Care Code 52082 Subseq Hosp Care Lvl 3 Diagnoses Hyponatremia E87.1 Acute metabolic encephalopathy G93.41 Melanoma C43.9 Melanoma location: unspecified site Nausea and vomiting R11.2 Vomiting Intractability: non-intractable Vomiting type: unspecified Asthma J45.909 Asthma complication type: uncomplicated Asthma persistence: persistent Asthma severity: unspecified severity History of alcohol abuse F10.11 Abnormal thyroid function test R94.6 Hypomagnesemia E83.42 DVT prophylaxis Z29.9 Time Spent (min) 40 (1) Melanoma Melanoma location: unspecified site Qualified Code(s): C43.9 - Malignant melanoma of skin, unspecified (2) Nausea and vomiting Vomiting Intractability: non-intractable Vomiting type: unspecified Qualified Code(s): R11.2 - Nausea with vomiting, unspecified (3) Asthma Asthma complication type: uncomplicated Asthma persistence: persistent Asthma severity: unspecified severity Qualified Code(s): J45.909 - Unspecified asthma, uncomplicated
[2019-07-27] MEDS: HEPARIN 100 UNIT/ML 5ML FLUSH FLUSH PRN ×2 (05:26→16:07)
[2019-07-27 06:20] LABS: BUN Creatinine Ratio 24.8 (10-20); Calcium 8.1 mg/dl (8.5-10.1); Creatinine Clr Calc Pharmacy 53.7 ml/min; Est GFR (African American) 70.3; Est GFR (Non-African American) 60.7; Potassium 4.4 mmol/L (3.5-5.1)
[2019-07-27] MEDS: methylPREDNISolone 40 MG in SYRINGE 0 ML IV SCH (08:53)
[2019-07-27] MEDS: ECONAZOLE NITRATE 1% CRM 15 GM TUBE TOP SCH (08:53)
[2019-07-27] MEDS: allopurinoL 100 MG TAB PO SCH (08:53)
[2019-07-27] MEDS: EUCERIN CR 120 GM JAR EXT SCH (08:55)
[2019-07-27] MEDS: FLUTICASONE/VILANTEROL 200/25MCG 14 PUFFS/INHALER INH SCH (08:56)
[2019-07-27] MEDS ORDERED: PANTOprazole 40 MG TAB PO SCH (09:00)
[2019-07-27] MEDS ORDERED: SODIUM CHLORIDE 1 GM TABLET PO SCH (09:00)
--- NOTE | 2019-07-27 09:20 | Nephrology Progress Note ---
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 Serum sodium has corrected following 3% NaCl administration. Patient is now on oral NaCl 2g po BID. He is tolerating this without GI upset * TSH was mildly suppressed on admission. Doubt this was contributing significantly to hyponatremia * No clinical evidence of CHF or cirrhosis * Recent steroid administration as part of chemotherapy regimen. Patient remains on Methylprednisolone therapy. Consider initiating taper * Outpatient medication list reviewed - no recent thiazide therapy or other medication that could have contributed to hyponatremia (2) Acute metabolic encephalopathy: * Infection evaluation has been negative: Blood cultures, urinalysis, urine C&S and CSF cx were negative * Brain MRI shows leptomeningeal enhancement. LP was negative for infection. 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 Lassiter was seen & examined in his hospital room this morning. He is alert and oriented to self, place and month. Mr. Lassiter complains of mild GO and weakness. He denies fever, angina, or dyspnea. Review of Systems Constitutional: no fever Eyes: no problem reported Ear, Nose, Mouth, Throat: no problem reported Respiratory: no cough and no dyspnea Cardiovascular: no chest pain, no palpitations and no edema Gastrointestinal: no abdominal pain, no nausea, no vomiting and no diarrhea/loose stools Genitourinary: no dysuria, no urinary hesitancy and no hematuria Musculoskeletal: no back pain Integumentary: no rash Neurologic: no dizziness Physical Exam Constitutional: + frail appearing Eyes: PERRL, conjunctivae normal, anicteric sclerae ENMT: Mouth: no oropharynx abnormality Neck: trachea midline, no thyromegaly Respiratory: no respiratory distress Auscultation: lungs clear to auscultation bilaterally Cardiovascular: Rate/Rhythm: regular rate and regular rhythm Extremities: no edema Gastrointestinal (Abdomen): Percussion/Palpation: abdomen soft; abdomen nontender Musculoskeletal: Extremities: no cyanosis Skin: Trauma: + abrasion (on shins) Neurologic: awake Results & Data ([facility]) Vital Signs (Past 12 Hours) Vital Signs Temp Pulse Pulse Resp BP BP Pulse Ox 07/27/19 07:42 36.3 C L 52 L 16 132/85 98 07/27/19 07:00 51 L 07/27/19 04:10 36.3 C L 56 L 16 132/81 96 07/26/19 23:34 36.6 C 57 L 18 128/83 97 07/26/19 23:30 54 L Laboratory Results Laboratory Tests 07/26/19 07/27/19 14:30 05:27 WBC 4.97 Hgb 10.3 L Hct 30.5 L Plt Count 176 Sodium 134 L Potassium 4.4 Chloride 102 Carbon Dioxide 25 BUN 29 H Creatinine 1.19 PG Care Time/CCT Total # of Minutes Spent Total Time Spent with Patient: Total time spent is greater than 50% in coordination of care (as documented) at patient's floor/unit and/or counseling patient: Coding Level of Care Code 48292 Subseq Hosp Care Lvl 3 Diagnoses Hyponatremia E87.1 Acute metabolic encephalopathy G93.41
[2019-07-27] MEDS: ENOXAPARIN INJ 40 MG/0.4 ML SYR SQ SCH (15:57)
[2019-07-27 23:42] LABS: Lyme IgG Band Pattern CSF DNR; Lyme IgG CSF NO BANDS DETECTED; Lyme IgM Band Pattern CSF DNR; Lyme IgM CSF NO BANDS DETECTED
[2019-07-28] MEDS ORDERED: predniSONE 20 MG TAB PO SCH (09:00)
--- NOTE | 2019-08-02 08:38 | Discharge Summary ---
Date of Service July 27, 2019 Admission HPI Per Admitting Provider 74yo male with stage 4 melanoma s/p resection of large occipital lobe metastatic lesion in 03/2019 at [facility], followed by XRT and immunotherapy - followed by Dr Jacob Bae with [facility] heme/onc - presents with altered mental status. Has been taking prednisone since middle of June for his cancer due to concerns he may have had residual brain swelling from metastatic lesion. Yesterday patient had a fairly normal day. He and his son went for a 3-mile hike yesterday, ate well, etc. No fevers or chills. Today about 7am his found him near the bed standing but was altered/confused. About 740am his then found him in the bed. Since that time he has been lethargic. No fevers/chills but did have 1 episode of emesis this am when EMS arrived to his home. No diarrhea. No loss of taste or smell. No cough or dyspnea. No skin rashes. has noted a steady decline over the last month with his cognitive ability. He had a MRI brain on June 14 at [facility]. MRI was stable by report. He was subsequently admitted to [facility] for 2 days for mental status changes. They could not find a culprit etiology - they thought maybe he had a reaction to his immune-based therapy. They also had considered endocrinopathy contributing to his mental status issues and therefore his prednisone was increased significantly. Apparently he improved with the larger dose of steroids. Principal Diagnosis Acute metabolic encephalopathy Discharge Exam Constitutional: average body habitus, no acute distress, awake, oriented to person, place and time, knows Tanmay is president, knows birthdate Eyes: + anicteric sclerae and PERRL; no nystagmus ENMT: Ears: no TM abnormality Mouth: no oral mucosal abnormality and oral mucous membranes not dry Neck: trachea midline, no thyromegaly no signs of trauma to cervical spine Respiratory: normal respiratory effort, lungs clear to auscultation Cardiovascular: Rate/Rhythm: regular rate and regular rhythm Heart Sounds: normal S1 and normal S2; no murmur Vessels: posterior tibial pulses present and dorsalis pedis pulses present; no JVD Extremities: no edema Gastrointestinal (Abdomen): normal bowel sounds, soft, nontender, no hepatosplenomegaly Musculoskeletal: right knee with minimal abrasions and bruising; no deformity Skin: Trauma: + evidence of skin trauma (right knee abrasions ) port - upper chest - clean, no erythema Neurologic: deep tendon reflexes 2+ bilaterally, moves all extremities; Cranial Nerves: no nystagmus +babinski on left; negative on right Psychiatric: Orientation: alert, oriented to person. Lymphatic: no cervical lymphadenopathy Discharge Data Allergies Allergy/AdvReac Type Severity Reaction Status Date / Time scallops Allergy Severe N/V Verified 07/23/19 10:34 diarrhea fluticasone AdvReac Severe Fatigue, Verified 07/23/19 10:34 headache cat dander AdvReac Mild nasal Verified 07/23/19 10:34 congestion dog dander AdvReac Mild nasal Verified 07/23/19 10:34 congestion Consultations 07/23/19 13:06 ED Decision to Admit Stat 07/23/19 15:56 Consult Nephrology Routine 07/23/19 16:46 Consult [employer] Routine 07/25/19 17:57 Consult Neurology Routine 07/26/19 15:08 Burn CD for patient Routine Ordered Studies 07/23/19 10:10 CT head/brain wo con Stat 07/24/19 07:54 FL lumbar puncture diagnostic Routine 07/24/19 08:31 CT head/brain wo con Routine 07/25/19 08:37 MR brain wo/w con Routine Hospital Course (1) Hyponatremia: Resolved. Urine osmolality 552, urine sodium 159, serum osmolality 267, calculated serum osmolality 266, no osmolar gap. UDS negative Sodium has been gradually going up, now at 135. He is not taking medications that would cause such. nephrology consult appreciated. MRI showed non specific findings: LP did not show signs of infection: only inflammation. Doubt hypothyroid state is contributing to hyponatremia. Has been on tapering steroids since June - random cortisol testing and cosyntropin stim testing would not yield valid results. Appreciate nephrology and critical care consults. (2) Acute metabolic encephalopathy: Likely secondary to malignancy. Stage 4 melanoma likely yields poor prognosis. Doubt main culprit is hyponatremia as it is mild. For that reason he was treated with 3% saline. Patient showed improvement each day that I saw him as he was less confused, more orietned, and had less difficulty with word finding. Other possibilities include infectious process (viral, tick-borne, bacteremia, etc), subacute seizures due to encephalomalacia from prior tumor resection, stroke, endocrine abnormalities (hypothyroid state), however, these appear less likely. EEG ordered: which only showed nonspecific findings of enecephalopathy, no seizure like activity. ANTIBIOTICS HAVE BEEN STOPPED Blood culture has been ordered, urine looks clean obtained BIOFIRE which was negative. EEG 07/24/2019 did not show any seizure-like activity. will recommend to recheck TSH and Free T4 as an outpatient.. Antibiotics have been stopped given negative workup. Awaiting lyme CSF. obtained burn cd order for imaging as patient is going to melanoma clinic on Tuesday. will recommend to recheck MRI of brain in 1 month. (3) Melanoma: stage 4. primary site unknown. had large metastatic lesion to occipital lobe of brain s/p resection [facility] 03/2019. follows with Dr Bae, [facility]. Most recent PET scan was negative per family. Dr. Bae is aware, likelypoor prognosis. (4) Nausea and vomiting: x 1 earlier on admision; none since. follow. (5) Asthma: controlled; w/o exacerbation. when able resume usual inhalers. (6) History of alcohol abuse: sober for several months. in light of altered MS received Thiamine (7) Abnormal thyroid function test: free T4 and TSH both low; doubt central hypothyroidism, as patient is acutely ill and not showing any other signs of hypothyroidism. Will recommend rechecking as an outpatient. (8) Hypomagnesemia: replaced (9) DVT prophylaxis: lovenox 40mg daily Updated extensively who is in agreement of discharge. In addition to the CD, obtained a copy of the neurology consult for Tuesday's appointment. Total Time Total Time Spent Total Time Spent (In Minutes): 40 Total Time Includes: Examination of the Patient, Discharge Planning, Medication Reconciliation and Communication With Other Providers Discharge Plan Discharge Items Patient Disposition: Home - Self-Care Reason For Visit: ALTERED MENTAL STATUS, HYPONATREMIA Discharge Diagnosis: Altered mental status, hyponatremia Activity: Resume your previous activity Non-emergency contact: Primary Care Provider Call non-emergency contact if: you have any medication questions Follow-up/Referrals: Sarbjit Coffman, [Primary Care Provider] - Diet: Heart Healthy Addtl Attending Provider Instructions: You were admitted for change of mental status. Thankfully you improved. However, despite multiple work-up, we are not quite sure of the cause of this confusion. Lumbar puncture was essentially negative. It only showed signs of inflammation (elevated protein), but no infection. Clinically, you did not look like you had an infection either as your clinical picture does not fit the mold of meningitis and encephalitis. You also improved without antibiotics and antivirals. We did do an MRI which showed enhancements in certain area of the brain. This was compared to previous MRI done at [facility]. The changes can be from something benign like a reaction to the lumbar puncture, or leptomenigeal carcinomatosis. Neurology recommended to repeat MRI in about 1 month. I have attached the CD with the images to the discharge as well as the Neurology consult. You will be discharged on slat tablets as this improved your sodium level. Will need to keep an eye on this and will repeat levels in about 5-7 days. Good luck on your appointment on Tuesday. Will recommend followup with Dr. Coffman in about 1 week. Pending Studies at Discharge: No Stand-Alone Forms: My [facility], Smoking Cessation Medications and DC Order Prescriptions: New prednisone 10 mg tablet 40 mg PO UD Qty: 30 RF: 0 sodium chloride 1 gram Tablet 2 g PO BID Qty: 60 RF: 0 Continued montelukast 10 mg tablet 10 mg PO HS Qty: 90 RF: 3 ondansetron HCl 8 mg tablet 8 mg PO Q8H PRN (Reason: Nausea) RF: 0 prochlorperazine maleate 10 mg tablet 10 mg PO Q6H PRN (Reason: Nausea) RF: 0 allopurinol 100 mg tablet 100 mg PO DAILY RF: 0 famotidine 20 mg tablet 20 mg PO DAILY RF: 0 econazole 1 % cream 1 applic TOPICAL BID RF: 0 albuterol sulfate [Ventolin HFA] 90 mcg/actuation Hfa Aerosol Inhaler 2 puff INHALATION QID PRN (Reason: Shortness Of Breath) RF: 0 Breo Ellipta 200-25 mcg/dose blister with device 1 inh INHALATION DAILY RF: 0 Discontinued prednisone 10 mg tablet 10 mg PO .TAPER DOSE RF: 0 Discharge Orders: Discharge Order (Routine); Ordered 07/27/19 Ordered By: Jann Membreno Admission Data Admit Date/Time: 07/23/19 13:19 Attending Provider: Jann Membreno Admit Provider: Benny Man Primary Care Provider: Sarbjit Coffman Other Providers: Navneet Beltran ; Zoe Willingham Emile Other Interventions: Discharge Summary Assessment (RN) Last Done: 07/27/19 15:56 DC Date/Time DO NOT enter until pt leaves facility: 07/27/19 17:02 Coding Level of Care Code D/C Day Management >30 mins Diagnoses Hyponatremia E87.1 Acute metabolic encephalopathy G93.41 Melanoma C43.9 Melanoma location: unspecified site Nausea and vomiting R11.2 Vomiting Intractability: non-intractable Vomiting type: unspecified Asthma J45.909 Asthma severity: unspecified severity Asthma persistence: persistent Asthma complication type: uncomplicated History of alcohol abuse F10.11 Abnormal thyroid function test R94.6 Hypomagnesemia E83.42 DVT prophylaxis Z29.9
== END 2019-07-27 17:02 | disposition home or self-care (01) | DRG 595 ==
LOC: ED 09:49 → 2S 13:19 → SUATTDRO 13:19 → 2S 14:40 → 1E 16:33 → 2N 07-25 13:40